=== PATIENT | male | born 1945 | race Caucasian/White ===

== ENCOUNTER 2016-04-05 13:06 | Outpatient (CLI) | payer MEDICARE, OTHER | END 2016-04-05 13:07 | disposition home or self-care (01) | DX: C61 Malignant neoplasm of prostate (principal) ==

== ENCOUNTER 2016-08-10 16:46 | Outpatient (CLI) | payer MEDICARE, OTHER | END 2016-08-10 16:47 | disposition critical access hospital (66) | LOC: EMS 16:46 | PROVIDERS: ATTEND Surgery | DX: R50.9 Fever, unspecified (principal); R41.82 Altered mental status, unspecified; R53.1 Weakness; R06.02 Shortness of breath | CPT/HCPCS: A0425; A0427 ==

== ENCOUNTER 2016-08-10 17:16 | Inpatient (IN) | payer MEDICARE, OTHER ==
[2016-08-10] MEDS ORDERED: SODIUM CHLORIDE 0.9% 1,000 ML IV ONE ×4 (17:27→18:50)
[2016-08-10] MEDS ORDERED: ACETAMINOPHEN 1,000 MG/100 ML 100 ML IV STA (17:28)
--- NOTE | 2016-08-10 17:32 | ED Physician Documentation ---
History of Present Illness - Stated complaint Stated Complaint: FEVER/ALOC - Chief complaint Chief Complaint: General - History obtained from History obtained from: Patient, Family, EMS - History of Present Illness Timing: Yesterday Pain level max: 0 Pain level now: 0 - Additonal information Additional information: Patient is unable to give any history currently due to altered mental status. states that he was diagnosed with prostate cancer last August and has been undergoing chemotherapy since May. Was treated initially with hormone injections. Last chemotherapy was 1 week ago. He has seen at [facility] for his oncology and chemotherapy. Fever started yesterday, temperature of 102 last night. Today became less responsive. EMS was called. EMS started IV fluids en route. No other treatment given. states that the patient normally has a slight red streak from the port. This is unchanged from prior. Review of Systems Unable to obtain: AMS Constitutional: reports: Fever, Chills Cardiac: denies: Chest pain / pressure Respiratory: denies: Cough GI: reports: Vomiting (once). denies: Constipation, Diarrhea : denies: Dysuria Skin: denies: Rash Musculoskeletal: denies: Neck pain, Back pain Neurologic: denies: Headache PD PAST MEDICAL HISTORY - Past Medical History Past Medical History: Yes Other Past Medical History: prostate cancer - Present Medications Home Medications: Ambulatory Orders Medication Instructions Recorded Confirmed Aspirin 81 mg PO DAILY 08/10/16 08/10/16 Bisoprolol Fumarate 0 mg PO DAILY 08/10/16 08/10/16 - Allergies Allergies/Adverse Reactions: Allergies Allergy/AdvReac Type Severity Reaction Status Date / Time Iodinated Contrast Media - Allergy Respiratory Verified 08/10/16 17:30 Oral and iodine Allergy Respiratory Verified 08/10/16 17:30 - Living Situation Living Situation: reports: With family Living Arrangement: reports: At home - Social History Does the pt have substance abuse?: No - Family History Family history: reports: Non contributory PD ED PE NORMAL - Vitals Vital signs reviewed: Yes - General General: Other (pale appearing, moans in response to questions) - HEENT HEENT: PERRL, Other (dry lips and mouth) - Neck Neck: Supple, no meningeal sign - Cardiac Cardiac: Other (tachycardic) - Respiratory Respiratory: Other (rhonchi B) - Abdomen Abdomen: Soft, Non tender, Other (mild distention) - Back Back: No CVA TTP, No spinal TTP - Derm Derm: Warm and dry - Extremities Extremities: Other (1+ B LE edema) - Neuro Neuro: Other (alert) Results - Vitals Vitals: Vital Signs - 24 hr 08/10/16 08/10/16 08/10/16 17:18 18:03 18:45 Temperature 37.8 C H Heart Rate 144 H 139 H 128 H Respiratory 36 H 36 H 24 Rate Blood Pressure 156/82 H 143/71 H 153/69 H O2 Saturation 92 94 98 08/10/16 08/10/16 08/10/16 19:15 20:03 20:51 Temperature 36.9 C 36.7 C Heart Rate 130 H 121 H 120 H Respiratory 26 H 22 29 H Rate Blood Pressure 138/71 H 162/80 H 140/73 H O2 Saturation 98 99 99 Oxygen O2 Source Nasal cannula - Labs Labs: Laboratory Tests 08/10/16 08/10/16 08/10/16 17:20 17:30 17:30 WBC 1.4 L* RBC 3.63 L Hgb 11.4 L Hct 33.2 L MCV 91.4 MCH 31.4 H MCHC 34.4 RDW 13.0 Plt Count 157 MPV 7.8 Neut # 0.6 L Lymph # 0.3 L Cascade # 0.5 Eos # 0.0 Baso # 0.0 Absolute Nucleated RBC 0.02 Nucleated RBCs 1.3 Sodium 130 L Potassium 3.3 L Chloride 95 L Carbon Dioxide 23 Anion Gap 12.0 BUN 33 H Creatinine 1.1 Estimated GFR (MDRD) 66 L Glucose 133 H Lactic Acid 3.1 H* Calcium 8.5 Total Bilirubin 3.5 H AST 160 H ALT 77 H Alkaline Phosphatase 27 L Total Protein 5.8 L Albumin 3.1 L Globulin 2.7 Albumin/Globulin Ratio 1.1 Lipase 16 L Urine Color Urine Clarity Urine pH Ur Specific Paige Urine Protein Urine Glucose (UA) Urine Ketones Urine Occult Blood Urine Nitrite Urine Bilirubin Urine Urobilinogen Ur Leukocyte Esterase Urine RBC Urine WBC Ur Epithelial Cells Ur Squamous Epith Cells Urine Bacteria Urine Casts Urine Mucus Ur Microscopic Review Urine Culture Comments 08/10/16 18:00 WBC RBC Hgb Hct MCV MCH MCHC RDW Plt Count MPV Neut # Lymph # Cascade # Eos # Baso # Absolute Nucleated RBC Nucleated RBCs Sodium Potassium Chloride Carbon Dioxide Anion Gap BUN Creatinine Estimated GFR (MDRD) Glucose Lactic Acid Calcium Total Bilirubin AST ALT Alkaline Phosphatase Total Protein Albumin Globulin Albumin/Globulin Ratio Lipase Urine Color DK. ORANGE Urine Clarity CLOUDY Urine pH 5.5 Ur Specific Paige >=1.030 H Urine Protein 100 H Urine Glucose (UA) NEGATIVE Urine Ketones TRACE Urine Occult Blood LARGE H Urine Nitrite POSITIVE H Urine Bilirubin NEGATIVE Urine Urobilinogen 4 H Ur Leukocyte Esterase NEGATIVE Urine RBC None Seen Urine WBC 4-5 Ur Epithelial Cells RARE Renal Tubular Ur Squamous Epith Cells FEW Squamous Urine Bacteria Many H Urine Casts 0-2 Granular Casts Urine Mucus Marked Strands Ur Microscopic Review INDICATED Urine Culture Comments INDICATED - Rads (name of study) cxr Radiology: Prelim report reviewed, EMP read contemporaneously, See rad report ( Small right lung base infiltrate. ) PD MEDICAL DECISION MAKING - ED course Complexity details: reviewed results, re-evaluated patient, considered differential, d/w patient, d/w family ED course: Patient is a 70-year-old male who presents to the emergency department with what appears to be pneumonia, urosepsis. He is also neutropenic. Given IV fluids aggressively. Also started on vancomycin and Zosyn for broad antibiotic coverage. Blood cultures drawn from the peripheral and from the port. Patient' s mentation greatly improved in the emergency department, answering questions, alert and oriented 3. Heart rate decreased. Blood pressure remained stable. Discussed the case with Dr. Kang, hospitalist who accepts. This document was made in part using voice recognition software. While efforts are made to proofread this document, sound alike and grammatical errors may occur. - Critical Care Time(min): 45 Time Includes: Direct patient care, Document care, Coordinate care, Medical consult Data interpretation: See progress note Procedures included in critical care time: See progress note Procedures excluded from critical care time: See progress note Departure - Departure Disposition: 66 [facility] DC/Xfer Clinical Impression: Pneumonia Qualifiers: Pneumonia type: due to unspecified organism Laterality: right Lung location: lower lobe of lung Qualified Code(s): J18.1 - Lobar pneumonia, unspecified organism Sepsis Qualifiers: Sepsis type: sepsis due to unspecified organism Qualified Code(s): A41.9 - Sepsis, unspecified organism UTI (urinary tract infection) Qualifiers: Urinary tract infection type: acute cystitis Hematuria presence: without hematuria Qualified Code(s): N30.00 - Acute cystitis without hematuria Condition: Stable
[2016-08-10] MEDS ORDERED: ACETAMINOPHEN 1,000 MG/100 ML 100 ML IV ONE (17:33)
[2016-08-10 17:48] LABS: HCT - HEMATOCRIT 33.2 % (42.0-52.0); LYMPHOCYTES # (AUTO) 0.3 10^3/uL (1.5-3.5); MONOCYTES # (AUTO) 0.5 10^3/uL (0.0-1.0); UNCORRECTED WHITE BLOOD COUNT 1.5 x10^3/uL
[2016-08-10 17:56] LABS: BASOPHILS % (AUTO) 0.2 %; EOSINOPHILS % (AUTO) 0.8 %; HGB - HEMOGLOBIN 11.4 g/dL (14.0-18.0); LYMPHOCYTES % (AUTO) 20.1 %; MEAN CORPUSCULAR HEMOGLOBIN 31.4 pg (27.0-31.0); MEAN CORPUSCULAR HGB CONC 34.4 g/dL (32.0-36.0); MEAN CORPUSCULAR VOLUME 91.4 fL (80.0-94.0); MEAN PLATELET VOLUME 7.8 fL (7.4-11.4); MONOCYTES % (AUTO) 35.6 %; NEUTROPHILS % (AUTO) 43.3 %; NUCLEATED RED BLOOD CELLS AUTO 1.3 /100WBC; RED BLOOD COUNT 3.63 10^6/uL (4.70-6.10)
[2016-08-10 17:58] LABS: NEUTROPHILS # (AUTO) 0.6 10^3/uL (1.5-6.6)
[2016-08-10 18:03] LABS: WHITE BLOOD COUNT 1.4 x10^3/uL (4.8-10.8)
[2016-08-10 18:08] LABS: ALBUMIN/GLOBULIN RATIO 1.1 (1.0-2.2); BILIRUBIN,TOTAL 3.5 mg/dL (0.2-1.0); CALCIUM 8.5 mg/dL (8.5-10.3); CREATININE 1.1 mg/dL (0.6-1.2); POTASSIUM 3.3 mmol/L (3.5-5.0); TOTAL PROTEIN 5.8 g/dL (6.7-8.2)
[2016-08-10 18:09] LABS: PH,URINE 5.5 PH (5.0-7.5)
--- NOTE | 2016-08-10 18:12 | XRAY Preliminary Report ---
Exam: XR Chest 1 View IMPRESSION: Small right lung base infiltrate. [facility] SITE ID: [id number]
[2016-08-10 18:20] LABS: BILIRUBIN,URINE NEGATIVE (NEGATIVE); UA w/ MICROSCOPIC CHARGE YES
--- NOTE | 2016-08-10 18:24 | XRAY Report ---
EXAM: CHEST RADIOGRAPHY EXAM DATE: 08/10/2016 05:48 PM. CLINICAL HISTORY: Fever, chemo patient. COMPARISON: 11/22/2015. TECHNIQUE: 1 view. FINDINGS: Lungs/Pleura: Small airspace infiltrate right medial lung base. Borderline low lung volumes. No vascu lar congestion nor pneumothorax. No effusion. Mediastinum: Within exam limitations, cardiomediastinal contour is normal. Other: Interval placement of a right jugular Port-A-Cath with the tip at the cavoatrial junction. Slight calcific tendinitis right shoulder. IMPRESSION: Small right lung base infiltrate. [facility] Referring Provider Line: [phone] SITE ID: [id number]
[2016-08-10 18:29] LABS: UR CULTURE IF IND INDICATED
[2016-08-10] MEDS ORDERED: PIPERACILLIN/TAZOBACTAM 4.5 GM in SODIUM CHLORIDE 0.9% MINIBAG 100 ML IV STA (18:32)
[2016-08-10] MEDS ORDERED: VANCOMYCIN INJ 1 GM in SODIUM CHLORIDE 0.9% 250 ML IV STA (18:32)
[2016-08-10] MEDS ORDERED: VANCOMYCIN 1 GM VIAL ONE (19:02)
[2016-08-10] MEDS ORDERED: MORPHINE 2 MG/ML SYRINGE IVP PRN (21:03)
[2016-08-10] MEDS ORDERED: PROCHLORPERAZINE 10 MG/2 ML VIAL IVP PRN (21:03)
[2016-08-10] MEDS ORDERED: oxyCODONE 5 MG TABLET PO PRN ×2 (21:03)
[2016-08-10] MEDS ORDERED: ACETAMINOPHEN 325 MG TABLET PO PRN (21:03)
[2016-08-10] MEDS ORDERED: SODIUM CHLORIDE 0.9% 500 ML IV SCH (21:03)
[2016-08-10] MEDS ORDERED: VANCOMYCIN PER PHARMACY 1 GM in SODIUM CHLORIDE 0.9% 250 ML IV SCH (22:00)
[2016-08-10] MEDS ORDERED: VANCOMYCIN INJ 500 MG in SODIUM CHLORIDE 0.9% MINIBAG 100 ML IV SCH (23:00)
[2016-08-11] MEDS: SODIUM CHLORIDE 0.9% 1,000 ML IV SCH ×4 (00:14→23:49)
--- NOTE | 2016-08-11 00:18 | HISTORY & PHYSICAL EXAMINATION ---
Chief Complaint - Chief Complaint Chief Complaint: generalized weakness History of Present Illness - Admitted From Admitted From:: emergency department - History Obtained From Records Reviewed: Yes History obtained from: patient and patient's Exam Limitations: Patient was lethargic - History of Present Illness HPI Comment/Other: Patient is a 70-year-old gentleman with a past medical history significant for hypertension, migraines and prostate cancer diagnosed in August of 2015 status post hormone injections, prostatectomy in December with recurrence of disease in May currently undergoing chemotherapy once every 3 weeks and hormone injections his last chemotherapy treatment was on 07-31-16 and today he presents to the emergency department with a chief complaint of generalized weakness. The patient was a poor historian as he was quite lethargic when seen in the emergency department. According to the patient's after each of these chemotherapy treatments the patient usually has 1 week where he is quite fatigued and weak and then begins to recover. She states that this time the weakness and fatigue lasted longer than normal. She states that he actually became increasingly weak to a point where he was not getting out of the bed. The patient has not eaten for 2 days he's had poor appetite. The patient admits that he's been coughing feeling short of breath and was feeling quite warm at home. Today the patient's decided to bring the patient to the emergency department when she noticed that he was not getting out of bed and was having a hard time just rolling over in bed. She states that he was very lethargic and difficult to arouse. The patient also admitted to feeling abdominal distention and abdominal pain. He denied any nausea vomiting or diarrhea. He denied any urinary urgency frequency or dysuria. He denied any chest pain. On presentation to the emergency department the patient was febrile with a temperature of 37.8, tachycardic with heart rate in the 140s, hypertensive, tachypneic, hypoxic on room air and very lethargic. The patient's lab work revealed a neutrophil count of 600 with a lactic acid of 3.1 and elevated liver enzymes but preserved kidney function. The patient appeared to be in severe sepsis further workup was done to find the source. Patient's blood was sent for culture, he did not appear to have any significant erythema or possible around his Port-A-Cath. The patient's chest x-ray showed a small right lung base infiltrate. The patient's UA was positive for many bacteria and 4-5 WBC. The patient was treated with IV fluids broad-spectrum IV antibiotics and Tylenol in the emergency department. He did appear to show some improvement however his repeat lactic acid was slightly increased to 3.4. The patient was admitted to the [facility] for severe sepsis with neutropenic fever. Review of Systems - Constitutional Constitutional: reports: Fatigue, Fever, Chills, Malaise, Weakness, Poor appetite. denies: Diaphoresis, Night sweats, Weight gain, Weight loss - Eyes Eyes: denies: Pain, Irritation, Amaurosis, Blurred vision, Spots in vision, Field loss, Vision loss, Dipolpia, Corrective lenses, Other - Ears, Nose & Throat Ears, Nose & Throat: denies: Ear pain, Hearing loss, Hearing aids, Tinnitus, Vertigo, Nasal pain, Nasal discharge, Nosebleeds, Nasal obstruction, Nasal congestion, Postnasal drainage, Dentures, Sore throat, Hoarseness, Mouth lesions , Bleeding gums, Dental decay, Dental pain, Other - Cardiovascular Cariovascular: reports: Exertional dyspnea, Decr. exercise tolerance. denies: Irregular heart rate, Palpitations, Chest pain, Edema, Syncope, Orthopnea - Respiratory Respiratory: reports: Cough, Sputum production, SOB with exertion. denies: Wheezing, Hemoptysis, Orthopnea, SOB at rest, Stridor, Pleuritic pain - Gastrointestinal Gastrointestinal: reports: Abdominal pain, Abdominal distention, Constipation, Nausea, Vomiting, Coffee grounds emesis, Poor appetite. denies: Diarrhea, Change in bowel habits, Black stools, Bloody stools, Maximus blood emesis - Genitourinary Genitourinary: denies: Dysuria, Frequency, Urgency, Hematuria - Musculoskeletal Musculoskeletal: reports: Muscle aches. denies: Muscle pain, Back pain, Stiffness, Limited range of motion, Muscle weakness, Gout, Joint pain, Joint swelling - Integumentary Integumentary: denies: Rash, Pruritis, Lesions, Dryness - Neurological Neurological: reports: General weakness. denies: Focal weakness, Headache, Dizziness, Numbness, Abnormal gait, Seizures, Slurred speech - Psychiatric Psychiatric: denies: Depression, Anxiety - Endocrine Endocrine: denies: Polyuria, Polydypsia, Polyphagia, Intolerance to cold, Intolerance to heat - Hematologic/Lymphatic Hematologic/Lymphatic: denies: Anemia, Bruising, Petechiae, Lymphadenopathy History - Past Medical History Cardiovascular: reports: Hypertension Neuro: reports: Headache/migraine GI: reports: Hemorrhoids : reports: Other (Prostate Cancer) MRSA Hx?: No Other Past Medical History: prostate cancer - Family & Social History Family History: Mother: Cancer (Mom - Breast Ca, Dad - Bladder Ca, Brother - Multiple Myeloma, Uncle - Colon Ca), Father: Cancer, Brother: Cancer, Other family: Cancer Living arrangement: At home Living Situation: With spouse/s.o. Social History Notes: Patient and his live in [facility]. They are originally from [facility]. They have one daughter who lives on [place]. They have been living here for 15 years. 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 - Substance History Use: Uses substance without health or social issues: Alcohol (Has not drank alcohol since starting chemotherapy, previously drank a glass of wine a few times a week.) Abuse: Recurrent use of substance despite neg consequences: NONE Dependence: Experiences withdrawal or developed tolerances: NONE - POLST Patient has POLST: No POLST Status: Full Code Meds/Allgy - Home Medications Home Medications: Ambulatory Orders Medication Instructions Recorded Confirmed Aspirin 81 mg PO DAILY 08/10/16 08/10/16 Bisoprolol Fumarate 0 mg PO DAILY 08/10/16 08/10/16 - Allergies Allergies/Adverse Reactions: Allergies Allergy/AdvReac Type Severity Reaction Status Date / Time Iodinated Contrast Media - Allergy Respiratory Verified 08/10/16 17:30 Oral and iodine Allergy Respiratory Verified 08/10/16 17:30 Exam - Vital Signs Reviewed Vital Signs: Yes Vital Signs: Vital Signs x48h Temp Pulse Resp BP Pulse Ox 08/10/16 21:47 36.9 C 115 H 30 H 116/54 L 98 - Physical Exam General Appearance: positive: Severe distress (Tachypnic, alert but very slow to speak and appears toxic looking, pale.) Eyes Bilateral: positive: Normal inspection, PERRL, EOMI, No lid inflammation, Conjunctivae nml, No scleral icterus ENT: positive: ENT inspection nml, Pharynx nml, Dry mucous membranes. negative : Purulent nasal drainage, Pharyngeal erythema, Oral lesions Neck: positive: Nml inspection, Thyroid nml, No JVD, Trachea midline. negative : Thyromegaly, Lymphadenopathy (R), Lymphadenopathy (L) Respiratory: positive: Chest non-tender, Rhonchi (Right base with coarse breath sounds bilaterally), Other (Very tachypnic appears to be in respiratory distress ) Cardiovascular: positive: No murmur, No gallop, Tachycardia Peripheral Pulses: positive: 2+ Abdomen: positive: Tenderness (diffuse tenderness, negative murphys sign), Other (Distended abdomen, soft). negative: Guarding, Rebound, Hepatomegaly Back: positive: Nml inspection. negative: CVA tenderness (R), CVA tenderness (L ) Skin: positive: No rash, Warm, Dry, Pallor. negative: Cyanosis, Diaphoresis, Skin rash Extremities: positive: Non-tender, Full ROM, Nml appearance, No pedal edema Neurologic/Psychiatric: positive: CN's nml (2-12), Motor nml, Sensation nml, Other (Generalized weakness, alert but very slow to answer and confused at times ) Conclusion/Plan - Problem List (1) Severe sepsis Conclusion/Plan: Patient presented with fever 37.8C, tachycardia 144, tachypnea 36, hypoxic down to the low 90s on room air, with leukopenia WBC 1.4, elevated lactic acid 3.1 and elevated LFTs. Patient was toxic appearing on presentation and very lethargic. Patient presented with sepsis and end organ damage. Source of sepsis could be pneumonia this patient had respiratory distress was hypoxic on presentation with coughing and shortness of breath and a chest x-ray showed right base infiltrate. Source could also be urine as the patient did have positive nitrates with pyuria and bacteria in the urine. Source could also be intra-abdominal as the patient did have elevated LFTs and does have abdominal distention with tenderness and vomiting but no peritoneal signs. Source unlikely to be the port as it appears to be clean with no surrounding erythema or pus. Plan: Continue IV fluids with aggressive resuscitation Broad-spectrum antibiotics: IV vancomycin and IV Zosyn Blood cultures x2 Trend lactic acid Abdominal ultrasound Tylenol for fever Monitor kidney and liver function hide paster mentation (2) Neutropenic fever Conclusion/Plan: Patient presented with a fever of 37.9. He had a fever of 103 in route. The patient was neutropenic with a neutrophil count of 600. Patient had chemotherapy on 07-31-16 Likely source pneumonia and UTI Plan: Monitor CBC Monitor temperature Treat with broad-spectrum antibiotics: IV vancomycin and IV Zosyn IV fluids Neutropenic precautions Blood cultures x2 (3) HCAP (healthcare-associated pneumonia) Conclusion/Plan: Patient presented with severe sepsis and appeared to be in respiratory distress , with hypoxia, tachypnea and febrile Patient currently undergoing chemotherapy for bladder cancer Chest x-ray shows a right base infiltrate. Will treat for healthcare associated pneumonia given recent chemotherapy. Plan: Broad-spectrum antibiotics: IV vancomycin and IV Zosyn Supplemental oxygen Nebs as needed Blood cultures times 2 Monitor closely (4) UTI (urinary tract infection) Conclusion/Plan: patient presented with severe sepsis Urine concerning for UTI with positive nitrite Pyuria and bacteriuria No urinary symptoms the patient septic with lethargy Will treat with IV Vanco and Zosyn Follow up urine cultures Monitor Qualifiers: Urinary tract infection type: acute cystitis Hematuria presence: without hematuria Qualified Code(s): N30.00 - Acute cystitis without hematuria (5) Hypokalemia Conclusion/Plan: Patient presented with hypokalemia K 3.3 Likely secondary to nausea and vomiting Replace potassium (6) Elevated LFTs Conclusion/Plan: Patient presented with elevated LFTs bili of 3.5 AST 160 ALT 77 This could be secondary to severe sepsis with endorgan damage It could also be secondary to chemotherapy Given abdominal distention nausea vomiting and abdominal tenderness patient could also have cholecystitis as cause of severe sepsis however patient already has a source Repeat LFTs in the morning Abdominal ultrasound Consider abdominal CT scan if abdominal pain and distention persists. (7) Bladder cancer Conclusion/Plan: treated outpatient at [facility] Patient's oncologist is Dr. Knapp Initially underwent hormone therapy and then had a prostatectomy in December 2015 PSA increased therefore started chemotherapy in May 2016 Currently undergoing chemotherapy every 3 weeks most recently 07-31-16 Also with adjuvant hormone injections every 3 months (8) Prophylactic use of low molecular weight heparin for venous thromboembolism Conclusion/Plan: placed on Lovenox while hospitalized - Lab Results Lab results reviewed: Yes Fish Bones: 08/10/16 17:30 08/10/16 17:30 - Diagnostic Imaging Results Diagnostic Imaging Results: positive: Final report reviewed - EKG Results EKG Interpreted Independently: Yes - Other Other Results/Comments: Chest x-ray Impression: Small right lung base infiltrate. Issues/Core Measures - Anticipated LOS Anticipated Stay Length: 2 or more midnights - DVT/VTE - Prophylaxis VTE/DVT Prophylaxis med ordered at admit?: Yes
[2016-08-11] MEDS: SODIUM CHLORIDE FLUSH 0.9% 10 ML SYRINGE IVP SCH ×4 (00:32→14:17)
[2016-08-11] MEDS: PIPERACILLIN/TAZOBACTAM 3.375 GM in SODIUM CHLORIDE 0.9% MINIBAG 100 ML IV SCH ×5 (00:33→23:51)
[2016-08-11] MEDS: POTASSIUM CHLOR 10 MEQ/100 ML 100 ML IV SCH ×2 (03:04→04:01)
[2016-08-11] MEDS: ONDANSETRON 4 MG/2 ML VIAL IVP PRN ×2 (06:28→17:11)
[2016-08-11 06:41] LABS: BASOPHILS % (AUTO) 0.3 %; HCT - HEMATOCRIT 29.3 % (42.0-52.0); HGB - HEMOGLOBIN 10.2 g/dL (14.0-18.0); LYMPHOCYTES % (AUTO) 10.9 %; MEAN CORPUSCULAR HEMOGLOBIN 31.6 pg (27.0-31.0); MEAN CORPUSCULAR HGB CONC 34.6 g/dL (32.0-36.0); MEAN CORPUSCULAR VOLUME 91.3 fL (80.0-94.0); MONOCYTES % (AUTO) 11.5 %; NEUTROPHILS % (AUTO) 77.3 %; RED BLOOD COUNT 3.22 10^6/uL (4.70-6.10); RED CELL DISTRIBUTION WIDTH 13.5 % (12.0-15.0); UNCORRECTED WHITE BLOOD COUNT 3.4 x10^3/uL; WHITE BLOOD COUNT 3.4 x10^3/uL (4.8-10.8)
[2016-08-11 06:49] LABS: BILIRUBIN,TOTAL 3.1 mg/dL (0.2-1.0); BUN - BLOOD UREA NITROGEN 29 mg/dL (6-20); CALCIUM 7.9 mg/dL (8.5-10.3); CARBON DIOXIDE - CO2 21 mmol/L (21-32); CHLORIDE 103 mmol/L (101-111); GFR - MDRD 74 (>89); GLUCOSE 102 mg/dL (70-100); MAGNESIUM 1.4 mg/dL (1.7-2.8); PHOSPHORUS 1.7 mg/dL (2.5-4.6); POTASSIUM 3.6 mmol/L (3.5-5.0); SODIUM 133 mmol/L (135-145); TOTAL PROTEIN 5.1 g/dL (6.7-8.2)
[2016-08-11] MEDS ORDERED: SODIUM CHLORIDE 0.9% 500 ML IV ONE ×3 (06:50→16:21)
[2016-08-11] MEDS ORDERED: PANTOPRAZOLE 40 MG TABLET PO SCH (07:00)
[2016-08-11 07:01] LABS: VBG PH 7.413 (7.31-7.41)
[2016-08-11 07:02] LABS: CALCIUM, IONIZED 1.11 mmol/L (1.15-1.33)
[2016-08-11] MEDS: PANTOPRAZOLE 40 MG VIAL IVP SCH (07:07)
[2016-08-11 07:18] LABS: BAND NEUTROPHILS % (MANUAL) 31 %; LYMPHOCYTES % (MANUAL) 19 %; NEUTROPHILS % (MANUAL) 15 %; TOTAL CELLS COUNTED 100
[2016-08-11 07:20] LABS: PLATELET ESTIMATE, MANUAL DECREASED (<130,000) (NORMAL); PLATELET MORPHOLOGY NORMAL APPEARANCE (NORMAL); WBC MORPHOLOGY (MULTIPLE) 1+ VACUOLATION (NORMAL)
[2016-08-11 07:21] LABS: NP AUTO DIFFERENTIAL? YES; NP MAN DIFFERENTIAL? NO
[2016-08-11] MEDS: POLYETHYLENE GLYCOL 3350 17 GM PACKET PO SCH (08:43)
[2016-08-11] MEDS: SACCHAROMYCES BOULARDII 250 MG CAPSULE PO SCH ×2 (08:43→17:13)
[2016-08-11] MEDS: ASPIRIN CHEW 81 MG TABLET PO SCH (08:43)
[2016-08-11] MEDS: ENOXAPARIN 40 MG/0.4 ML SYRINGE SUBQ SCH (08:43)
[2016-08-11] MEDS: VANCOMYCIN INJ 1 GM in SODIUM CHLORIDE 0.9% 250 ML IV SCH ×2 (08:44→20:55)
--- NOTE | 2016-08-11 08:50 | Ultrasound Preliminary Report ---
Exam: US Abdomen Limited IMPRESSION: 1. Technically difficult examination due to patient position and physical restrictions of motion. 2. Mild hepatomegaly. Portions of left lobe of liver suboptimally visualized. 3. Nonspecific mild prominence of common bile duct measuring up to 9 mm diameter. No intrahepatic rodrick t dilation. No intraductal stones seen. [facility] SITE ID: [id number]
--- NOTE | 2016-08-11 08:53 | Ultrasound Report ---
EXAM: ABDOMEN ULTRASOUND LIMITED, RUQ EXAM DATE: 08/11/2016 08:20 AM. CLINICAL HISTORY: Elevated LFTs with severe sepsis. COMPARISON: CT 02/16/2013. TECHNIQUE: Real-time scanning was performed with static images obtained. FINDINGS: Liver: Mildly enlarged with right lobe 17.8 cm superior to inferior. Portions of left lobe of liver s uboptimally visualized due to overlying bowel gas and patient position. No focal mass. Main portal ve in flow: Hepatopetal. Gallbladder: Normal. No stones, wall thickening, or sonographic Craig's sign. Biliary System: CBD measures 9 mm. No intrahepatic or additional extrahepatic ductal dilatation. Other: Incidental right pleural effusion. Right kidney unremarkable measuring 12.2 cm longitudinally. IMPRESSION: 1. Technically difficult examination due to patient position and physical restrictions of motion. 2. Mild hepatomegaly. Portions of left lobe of liver suboptimally visualized. 3. Nonspecific mild prominence of common bile duct measuring up to 9 mm diameter. No intrahepatic rodrick t dilation. No intraductal stones seen. [facility] Referring Provider Line: [phone] SITE ID: [id number]
[2016-08-11] MEDS ORDERED: METOPROLOL TARTRATE 50 MG TABLET PO SCH (09:00)
[2016-08-11] MEDS ORDERED: BISOPROLOL FUMARATE 10 MG PO SCH (09:00)
[2016-08-11] MEDS ORDERED: MAGNESIUM SULFATE 1 GM in SODIUM CHLORIDE 0.9% 50 ML IV ONE (10:33)
[2016-08-11] MEDS ORDERED: POTASSIUM PHOSPHATE 15 MMOL in SODIUM CHLORIDE 0.9% 250 ML IV ONE (11:30)
[2016-08-11 11:54] LABS: INR 1.5 (0.8-1.2); PT - PROTHROMBIN TIME 17.1 secs (9.9-12.6)
[2016-08-11 12:14] LABS: PARTIAL THROMBOPLASTIN TIME 36.7 secs (24.9-33.3)
[2016-08-11] MEDS ORDERED: diphenhydrAMINE INJ 50 MG/ML VIAL IVP PRN (13:36)
--- NOTE | 2016-08-11 13:50 | PROVIDER PROGRESS NOTE ---
Subjective - Prog Note Date Prog Note Date: 08/11/16 Prog Note Time: 13:47 - Subjective Subjective: Greater than 45 minutes is spent in critical care for this patient. I am now transferring him to the ICU. He has presented with sepsis and the source could be pneumonia or urine. Abdomen is distended and urine is tea colored. LFTs are elevated but ultrasound is negative other than a mildly dilated common bile duct. A new piece of data is gram-positive cocci growing in blood cultures at less than 12 hours. The patient continues to be lethargic, disoriented, tachycardic in spite of Zosyn, vancomycin, IV fluids and fluid boluses in the last hour. He is now developing hypotension. I have spoken to the oncologist integration engineer for Dr. Knapp @ [facility] [phone] and he is in agreement with my management. I have already spoken to Dr. Hawk as well as Dr. Bolanos for removal of port and new central line. Current Medications - Current Medications Current Medications: Active Medications Acetaminophen (Tylenol) 650 mg PO Q4HR PRN PRN Reason: Pain 1 to 4 Aspirin ([place] Aspirin) 81 mg PO DAILY [facility] Last Admin: 08/11/16 08:43 Dose: Not Given Diphenhydramine HCl (Benadryl Inj) 25 mg IVP Q6H PRN PRN Reason: Allergy Symptoms Enoxaparin Sodium (Lovenox) 40 mg SUBQ DAILY [facility] Last Admin: 08/11/16 08:43 Dose: 40 mg Heparin Sodium (Beef Lung) () 30 - 50 unit IVP ONCE PRN PRN Reason: Port Protocol (<24 hours) Stop: 09/10/16 06:32 Sodium Chloride (Normal Saline 0.9%) 1,000 mls @ 150 mls/hr IV .Q6H40M [facility] Last Admin: 08/11/16 03:37 Dose: 150 mls/hr Piperacillin Sod/Tazobactam (Sod 3.375 gm/ Sodium Chloride) 100 mls @ 200 mls/ hr IV Q6HR [facility] Last Admin: 08/11/16 12:29 Dose: 200 mls/hr Vancomycin HCl 1 gm/ Sodium (Chloride) 250 mls @ 166.667 mls/hr IV BID [facility] Last Admin: 08/11/16 08:44 Dose: 166.667 mls/hr Potassium Phosphate 15 mmol/ (Sodium Chloride) 255 mls @ 42.5 mls/hr IV ONCE ONE Stop: 08/11/16 17:29 Last Admin: 08/11/16 10:57 Dose: 42.5 mls/hr Ranitidine HCl 50 mg/ Sodium (Chloride) 52 mls @ 500 mls/hr IV BID [facility] Methylprednisolone (Solu-Medrol (40mg Vial)) 40 mg IVP TID [facility] Metoprolol Tartrate (Lopressor) 50 mg PO BID [facility] Last Admin: 08/11/16 08:43 Dose: 50 mg Morphine Sulfate (Morphine) 2 mg IVP Q2HR PRN PRN Reason: Pain 8 to 10 Last Admin: 08/11/16 02:50 Dose: 2 mg Ondansetron HCl (Zofran Inj) 4 mg IVP Q6HR PRN PRN Reason: Nausea / Vomiting Last Admin: 08/11/16 06:28 Dose: 4 mg Oxycodone HCl (Roxicodone) 5 mg PO Q4HR PRN PRN Reason: Pain 5 to 7 Oxycodone HCl (Roxicodone) 10 mg PO Q4HR PRN PRN Reason: Pain 8 to 10 Pantoprazole Sodium (Protonix) 40 mg IVP QDAC [facility] Last Admin: 08/11/16 07:07 Dose: 40 mg Polyethylene Glycol (Miralax) 17 gm PO DAILY [facility] Last Admin: 08/11/16 08:43 Dose: Not Given Prochlorperazine Edisylate (Compazine Inj) 10 mg IVP Q6HR PRN PRN Reason: Nausea / Vomiting Saccharomyces Boulardii (Florastor) 250 mg PO BIDWM [facility] Last Admin: 08/11/16 08:43 Dose: 250 mg Sodium Chloride (Normal Saline Flush 0.9%) 10 ml IVP PRN PRN PRN Reason: NEEDED PER PROVIDER ORDERS Sodium Chloride (Normal Saline Flush 0.9%) 10 ml IVP Q8HR [facility] Last Admin: 08/11/16 11:05 Dose: 10 ml Aspirin 81 mg PO DAILY 08/10/16 Bisoprolol Fumarate/Hctz [Bisoprolol-Hctz 10-6.25 mg Tab] 1 each PO DAILY Objective - Vital Signs/Intake & Output Reviewed Vital Signs: Yes Vital Signs: Vital Signs x48h Temp Pulse Resp BP BP Pulse Ox 08/11/16 12:00 36.8 C 105 H 28 H 94/58 L 97 08/11/16 10:23 36.6 C 105 H 35 H 91/61 97 08/11/16 08:43 112/71 08/11/16 08:36 36.9 C 124 H 36 H 113/72 95 08/11/16 06:19 37.2 C 127 H 36 H 117/75 96 Intake & Output: Intake & Output 08/08/16 08/09/16 08/10/16 08/11/16 23:59 23:59 23:59 23:59 Intake Total 4058 Output Total 325 472 Balance -325 2956 - Objective General Appearance: positive: Mild distress, Lethargic, Other (eldelry white male, glazed eyes, mumbling speech, in room holding martinez, very alarmed.) Eyes Bilateral: positive: PERRL (but sluggish), EOMI Eyes: OU Scleral icterus ENT: positive: Dry mucous membranes Neck: positive: No JVD, Lymphadenopathy (R), Lymphadenopathy (L). negative: Stiff neck, Carotid bruit Respiratory: positive: Chest non-tender, No respiratory distress, Rales, Rhonchi Cardiovascular: positive: Tachycardia (has been constant since I have come on shift), Systolic murmur. negative: Gallop/S4 Abdomen: positive: Tenderness (mild and very minimal over suprapubic are), Abnml bowel sounds (hypoactive), Other (distended but not really tender until lower abd, specifically no epigastric RUQ pain). negative: Guarding, Rebound Skin: positive: Pallor, Other (cold to touch scalp, elbows, knees but no cyanosis). negative: Skin rash Extremities: positive: Non-tender, No pedal edema. negative: Drea's sign/cords Neurologic/Psychiatric: positive: Motor nml, Disoriented to person, Disoriented to place, Disoriented to time, Slurred/abnml speech - Lab Results Fish Bones: 08/12/16 04:35 08/12/16 04:35 Other Labs: Lab Results x24hrs 08/11/16 08/11/16 08/11/16 Range/Units 11:40 06:15 06:15 WBC (4.8-10.8) x10^3/uL RBC (4.70-6.10) 10^6/uL Hgb (14.0-18.0) g/dL Hct (42.0-52.0) % MCV (80.0-94.0) fL MCH (27.0-31.0) pg MCHC (32.0-36.0) g/dL RDW (12.0-15.0) % Plt Count (130-450) 10^3/uL MPV (7.4-11.4) fL Neut # Lymph # [place] # Eos # Baso # Absolute Nucleated RBC Total Counted Band Neuts % (Manual) (0 - 10) % Reactive Lymphs % (Man) % Metamyelocytes % ( - 0) % Neutrophils # (Manual) (1.5-6.6) 10^3/uL Lymphocytes # (Manual) (1.5-3.5) 10^3/uL Monocytes # (Manual) (0.0-1.0) 10^3/uL Nucleated RBCs Differential Comment WBC Morphology (NORMAL) Platelet Estimate (NORMAL) Platelet Morphology (NORMAL) RBC Morph Micro Appear (NORMAL) PT 17.1 H (9.9-12.6) secs INR 1.5 H (0.8-1.2) APTT 36.7 H (24.9-33.3) secs VBG pH 7.413 H (7.31-7.41) Ionized Calcium 1.11 L (1.15-1.33) mmol/L Sodium (135-145) mmol/L Potassium (3.5-5.0) mmol/L Chloride (101-111) mmol/L Carbon Dioxide (21-32) mmol/L Anion Gap (6-13) BUN (6-20) mg/dL Creatinine (0.6-1.2) mg/dL Estimated GFR (MDRD) (>89) Glucose (70-100) mg/dL Lactic Acid 2.6 H (0.5-2.2) mmol/L Calcium (8.5-10.3) mg/dL Phosphorus (2.5-4.6) mg/dL Magnesium (1.7-2.8) mg/dL Total Bilirubin (0.2-1.0) mg/dL AST (10-42) IU/L ALT (10-60) IU/L Alkaline Phosphatase (42-121) IU/L Total Protein (6.7-8.2) g/dL Albumin (3.2-5.5) g/dL Globulin (2.1-4.2) g/dL Albumin/Globulin Ratio (1.0-2.2) 08/11/16 08/11/16 08/11/16 Range/Units 06:15 06:15 01:10 WBC 3.4 L (4.8-10.8) x10^3/uL RBC 3.22 L (4.70-6.10) 10^6/uL Hgb 10.2 L (14.0-18.0) g/dL Hct 29.3 L (42.0-52.0) % MCV 91.3 (80.0-94.0) fL MCH 31.6 H (27.0-31.0) pg MCHC 34.6 (32.0-36.0) g/dL RDW 13.5 (12.0-15.0) % Plt Count 139 (130-450) 10^3/uL MPV 8.0 (7.4-11.4) fL Neut # Not Reportable Lymph # Not Reportable [place] # Not Reportable Eos # Not Reportable Baso # Not Reportable Absolute Nucleated RBC Not Reportable Total Counted 100 Band Neuts % (Manual) 31 H (0 - 10) % Reactive Lymphs % (Man) 11 % Metamyelocytes % 15 H ( - 0) % Neutrophils # (Manual) 1.6 (1.5-6.6) 10^3/uL Lymphocytes # (Manual) 1.0 L (1.5-3.5) 10^3/uL Monocytes # (Manual) 0.3 (0.0-1.0) 10^3/uL Nucleated RBCs Not Reportable Differential Comment MANUAL DIFFERENTIAL WBC Morphology 1+ VACUOLATION (NORMAL) Platelet Estimate DECREASED (<130,000) (NORMAL) Platelet Morphology NORMAL APPEARANCE (NORMAL) RBC Morph Micro Appear 1+ SCHISTOCYTES (NORMAL) PT (9.9-12.6) secs INR (0.8-1.2) APTT (24.9-33.3) secs VBG pH (7.31-7.41) Ionized Calcium YES (1.15-1.33) mmol/L Sodium 133 L (135-145) mmol/L Potassium 3.6 (3.5-5.0) mmol/L Chloride 103 (101-111) mmol/L Carbon Dioxide 21 (21-32) mmol/L Anion Gap 9.0 (6-13) BUN 29 H (6-20) mg/dL Creatinine 1.0 (0.6-1.2) mg/dL Estimated GFR (MDRD) 74 L (>89) Glucose 102 H (70-100) mg/dL Lactic Acid 2.8 H (0.5-2.2) mmol/L Calcium 7.9 L (8.5-10.3) mg/dL Phosphorus 1.7 L (2.5-4.6) mg/dL Magnesium 1.4 L (1.7-2.8) mg/dL Total Bilirubin 3.1 H (0.2-1.0) mg/dL AST 162 H (10-42) IU/L ALT 68 H (10-60) IU/L Alkaline Phosphatase 20 L (42-121) IU/L Total Protein 5.1 L (6.7-8.2) g/dL Albumin 2.5 L (3.2-5.5) g/dL Globulin 2.6 (2.1-4.2) g/dL Albumin/Globulin Ratio 1.0 (1.0-2.2) 08/10/16 Range/Units 21:22 WBC (4.8-10.8) x10^3/uL RBC (4.70-6.10) 10^6/uL Hgb (14.0-18.0) g/dL Hct (42.0-52.0) % MCV (80.0-94.0) fL MCH (27.0-31.0) pg MCHC (32.0-36.0) g/dL RDW (12.0-15.0) % Plt Count (130-450) 10^3/uL MPV (7.4-11.4) fL Neut # Lymph # [place] # Eos # Baso # Absolute Nucleated RBC Total Counted Band Neuts % (Manual) (0 - 10) % Reactive Lymphs % (Man) % Metamyelocytes % ( - 0) % Neutrophils # (Manual) (1.5-6.6) 10^3/uL Lymphocytes # (Manual) (1.5-3.5) 10^3/uL Monocytes # (Manual) (0.0-1.0) 10^3/uL Nucleated RBCs Differential Comment WBC Morphology (NORMAL) Platelet Estimate (NORMAL) Platelet Morphology (NORMAL) RBC Morph Micro Appear (NORMAL) PT (9.9-12.6) secs INR (0.8-1.2) APTT (24.9-33.3) secs VBG pH (7.31-7.41) Ionized Calcium (1.15-1.33) mmol/L Sodium (135-145) mmol/L Potassium (3.5-5.0) mmol/L Chloride (101-111) mmol/L Carbon Dioxide (21-32) mmol/L Anion Gap (6-13) BUN (6-20) mg/dL Creatinine (0.6-1.2) mg/dL Estimated GFR (MDRD) (>89) Glucose (70-100) mg/dL Lactic Acid 3.4 H* (0.5-2.2) mmol/L Calcium (8.5-10.3) mg/dL Phosphorus (2.5-4.6) mg/dL Magnesium (1.7-2.8) mg/dL Total Bilirubin (0.2-1.0) mg/dL AST (10-42) IU/L ALT (10-60) IU/L Alkaline Phosphatase (42-121) IU/L Total Protein (6.7-8.2) g/dL Albumin (3.2-5.5) g/dL Globulin (2.1-4.2) g/dL Albumin/Globulin Ratio (1.0-2.2) Assessment/Plan - Problem List (1) Severe sepsis with acute organ dysfunction due to Gram positive bacteria Impression: Patient presented with fever 37.8C, tachycardia 144, tachypnea 36, hypoxic down to the low 90s on room air, with leukopenia WBC 1.4, elevated lactic acid 3.1 and elevated LFTs. He has sepsis with end organ damage. Patient was toxic appearing on presentation and very lethargic and has not really improved in spite of treatment delineated below. Sources of sepsis reviewed: pneumonia this patient had respiratory distress was hypoxic on presentation with coughing and shortness of breath and a chest x-ray showed right base infiltrate. Source could also be urine as the patient did have positive nitrates with pyuria and bacteria in the urine. Source could also be intra-abdominal as the patient did have elevated LFTs and does have abdominal distention with tenderness and vomiting but no peritoneal signs. US of abdomen is neg other than 9 mm CBD dilation. Source was unlikely to be the port as it appears to be clean with no surrounding erythema BUT now with positive gram positive bacteria in blood in an immunocompromised patient with a port and s/p chemo Plan: Transfer to ICU Start levophed after central line placed and Dr. Moctezuma consulted for central line. Continue IV fluids with aggressive resuscitation Broad-spectrum antibiotics: IV vancomycin and IV Zosyn Day #2 today Blood cultures x2 done and positive Trend lactic acid CT of abdomen/pelvis Tylenol for fever Monitor kidney and liver function Monitor mentation (2) Neutropenic fever Conclusion/Plan: Patient presented with a fever of 37.9. He had a fever of 103 in route. The patient was neutropenic with a neutrophil count of 600. Patient had chemotherapy on 07-31-16 Likely source pneumonia and UTI and port. Plan: Monitor CBC Monitor temperature Treat with broad-spectrum antibiotics: IV vancomycin and IV Zosyn Day #2 today IV fluids Neutropenic precautions remove the Port a cath and Dr. Hawk has been consulted. (3) HCAP (healthcare-associated pneumonia) Conclusion/Plan: Patient presented with severe sepsis and appeared to be in respiratory distress , with hypoxia, tachypnea and febrile Patient currently undergoing chemotherapy for prostate cancer Chest x-ray shows a right base infiltrate. Will treat for healthcare associated pneumonia given recent chemotherapy. Plan: Broad-spectrum antibiotics: IV vancomycin and IV Zosyn Day #2 today Supplemental oxygen Nebs as needed Sputum if can be brought up Monitor closely (4) UTI (urinary tract infection) Conclusion/Plan: patient presented with severe sepsis Urine concerning for UTI with positive nitrite Pyuria and bacteriuria No urinary symptoms the patient septic with lethargy Will treat with IV Vanco and Zosyn, Day #2 Follow up urine cultures Monitor Qualifiers: Urinary tract infection type: acute cystitis Hematuria presence: without hematuria Qualified Code(s): N30.00 - Acute cystitis without hematuria (5) Hypokalemia Conclusion/Plan: Patient presented with hypokalemia K 3.3 last night Likely secondary to nausea and vomiting Replaced potassium and 3.6 today (6) Elevated LFTs Conclusion/Plan: Patient presented with elevated LFTs bili of 3.5 AST 160 ALT 77 This could be secondary to severe sepsis with end organ damage It could also be secondary to chemotherapy Given abdominal distention nausea vomiting and abdominal tenderness patient could also have cholecystitis as cause of severe sepsis however patient already has a source and abd US negative. Since distension persists in an immunocompromised male, abdominal/pelvis CT scan. says he gets hives with contrast so is being given solumedrol, benadry, zantac for premedication and CT is tonight around 8 pm (7) Prostate cancer Conclusion/Plan: treated outpatient at [facility] Patient's oncologist is Dr. Knapp. Case reviewed with the Oncologist integration engineer for Dr. Knapp. Initially underwent hormone therapy and then had a prostatectomy in December 2015 PSA increased therefore started chemotherapy in May 2016 Currently undergoing chemotherapy every 3 weeks most recently 07-31-16 Also with adjuvant hormone injections every 3 months He agrees with pullii port and doesn't feel patient needs transfer at this time since their treatment would be no different than current plan. To call him back if necessary. .
[2016-08-11] MEDS ORDERED: VANCOMYCIN INJ 1.5 GM in SODIUM CHLORIDE 0.9% 500 ML IV SCH (14:00)
[2016-08-11] MEDS ORDERED: LIDOCAINE-MPF 1% 5 ML VIAL ONE (14:09)
[2016-08-11] MEDS: raNITIdine INJ 50 MG in SODIUM CHLORIDE 0.9% 50 ML IV SCH ×2 (14:10→20:51)
[2016-08-11] MEDS: methylPREDNISolone SUCCINATE 40 MG/ML VIAL IVP SCH ×2 (14:15→22:31)
[2016-08-11] MEDS ORDERED: LIDOCAINE MPF 1%-EPI 1:200000 30 ML VIAL ONE ×2 (14:37→14:38)
--- NOTE | 2016-08-11 15:18 | OPERATIVE REPORT ---
Operative Report - General Admit Date: 08/10/16 Procedure Date: 08/11/16 Planned Procedure: BedSide Infected Chemoport removal Pre-Op Diagnosis: sepsis Post Op Diagnosis: same - Procedure Note Primary Surgeon: Kenn Anesthesia Technique: Local Pathology: Chemoport Estimated Blood Loss (in cc): 3 Complications: None - Other Other Information/Narrative: INDICATION: 70 yo male with Sepsis and Rapid growth and Identification of staph Aureus from Chemoport. Urgent Bedside removal discussed with patient and family and riskis of procedure including risk of bleeding perforation, pneumothorax, hematoma formtion, Pulmonary Embolism, skin abscess formation, skin irregularities and risk of . All questions answered. Patient's signed consent after the patient requested that she write for him. Procedure: The patient was prepped and draped in sterile fashion. A time out was performed identifying correct patient, site, location. Patient has been on perioperative antibiotics. 1% lidocaine with epi was injected to the previous healed surgical site. A #15 blade was used for skin incision. the pocket was bluntly dissected and the chemoport was located. The tubing was removed from the patient in total, and the tip was sent for culture. Pressure was maintained while remvoing the line and afterward to prevent embolism as well as creating hemostasis. 3-O vicryl was used to ensure closure of the previous tract at the pocket site. The pocket was irrigated with 50 mL of sterile saline. Hand held cautery was used for hemostasis. the pocket was again irrigated and then subcutaneous 3-O vicryl was used to close the space in the previous pocket, followed by 4-O monocryl for subcuticular skin closure. The skin was then washed and Dermabond applied followed by guaze and tegaderm after the dermabond was dry. The patient tolerated the procedure well. All counts were correct. A chest CXR is pending.
--- NOTE | 2016-08-11 16:12 | XRAY Preliminary Report ---
Exam: XR Chest 1 View IMPRESSION: Interval removal of right-sided port. If this examination was intended to exclude pneumot horax, recommend repeat image including the apices. [facility] SITE ID: [id number]
--- NOTE | 2016-08-11 16:15 | XRAY Report ---
EXAM: CHEST RADIOGRAPHY EXAM DATE: 08/11/2016 03:42 PM. CLINICAL HISTORY: Post removal of port COMPARISON: 08/10/2016. TECHNIQUE: 1 view. FINDINGS: Lungs/Pleura: The superiormost portions of the apices are excluded from view, limiting evaluation for pneumothorax. No moderate or large pneumothorax is seen. No focal opacities are evident. No pleural effusion. Mediastinum: Normal cardiomediastinal contour. Atherosclerotic calcifications within the aortic arch, as before. Other: Thoracic spine DISH. Interval removal of right-sided port. IMPRESSION: Interval removal of right-sided port. If this examination was intended to exclude pneumot horax, recommend repeat image including the apices. [facility] Referring Provider Line: [phone] SITE ID: [id number]
--- NOTE | 2016-08-11 16:15 | ED Physician Documentation ---
ED Addendum - Addendum Addendum: 08/11/16 16:14 Called to ICU by Dr Martin, needing central venous access Procedure note, central line: Verbal informed consent was obtained from at bedside, risks including bleeding, infection, pneumothorax, arterial puncture, need for further surgery were discussed with the patient. She was prepped twice with chloraprep. I wore, mask, gown, sterile gloves. Full sterile sheet was utilized. Using real-time ultrasound guidance the right internal jugular was accessed and using Seldinger technique a triple-lumen 7 [place]onese central line was placed in standard fashion without immediate complications.
--- NOTE | 2016-08-11 16:57 | XRAY Preliminary Report ---
Exam: XR Chest for Line Placement IMPRESSION: Right IJ line to the low SVC, otherwise no change. No pneumothorax identified. [facility] SITE ID: [id number]
--- NOTE | 2016-08-11 17:00 | XRAY Report ---
EXAM: CHEST RADIOGRAPHY EXAM DATE: 08/11/2016 04:12 PM. CLINICAL HISTORY: Post line placement. COMPARISON: Today at 1543. TECHNIQUE: 1 view. FINDINGS: Lungs/Pleura: No focal opacities evident. No pleural effusion. No pneumothorax. Mediastinum: Within exam limitations, cardiomediastinal contour is normal. Other: Right IJ line to the low SVC. IMPRESSION: Right IJ line to the low SVC, otherwise no change. No pneumothorax identified. [facility] Referring Provider Line: [phone] SITE ID: [id number]
[2016-08-11] MEDS ORDERED: METOPROLOL 5 MG/5 ML VIAL IVP PRN (18:31)
[2016-08-11] MEDS ORDERED: SODIUM CHLORIDE 0.9% 1,000 ML IV ONE (22:29)
[2016-08-11] MEDS: METOPROLOL 5 MG/5 ML VIAL IVP PRN (22:31)
[2016-08-11] MEDS ORDERED: IOPAMIDOL-300 100 ML VIAL IVP ONE (22:38)
[2016-08-11] MEDS ORDERED: IOPAMIDOL-300 50 ML VIAL PO ONE (22:38)
[2016-08-12] MEDS ORDERED: MAGNESIUM SULFATE 2 GM in SODIUM CHLORIDE 0.9% 50 ML IV ONE (00:47)
[2016-08-12] MEDS ORDERED: SODIUM CHLORIDE 0.9% 1,000 ML IV ONE (00:48)
--- NOTE | 2016-08-12 02:06 | CT Preliminary Report ---
Exam: CT Abdomen/Pelvis W/ IMPRESSION: 1. Status post prostatectomy. Multiple bladder diverticula noted. Small amount of free fluid in the p rcis. No abscess. 2. Diverticulosis. No colonic inflammation. No obstruction. 3. No new pathologic adenopathy in abdomen or pelvis. 4. Cholelithiasis without active inflammation. 5. Hiatal hernia. Small bilateral effusions. [facility] SITE ID: [id number]
--- NOTE | 2016-08-12 02:09 | CT Report ---
EXAM: CT ABDOMEN AND PELVIS EXAM DATE: 08/11/2016 10:35 PM. CLINICAL HISTORY: Sepsis, lfts up,prostate ca, abd distension. COMPARISONS: 02/16/2013. TECHNIQUE: Routine helical CT imaging was performed through the abdomen and pelvis. IV contrast: 100 cc Omnipaque 300. Enteric contrast: Yes. Reconstructions: Coronal and sagittal. In accordance with CT protocol optimization, one or more of the following dose reduction techniques w ere utilized for this exam: automated exposure control, adjustment of mA and/or KV based on patient s ize, or use of iterative reconstructive technique. FINDINGS: Lung Bases: Lower lobe atelectasis noted. Small bilateral right greater than left effusions. Moderate hiatus hernia. Liver: Normal. No masses. Gallbladder/Bile Ducts: Small amount of debris in the gallbladder neck. No inflammation noted in the gallbladder fossa. No dilated common bile duct. Spleen: Normal. Pancreas: Normal. Adrenal Glands: Normal. Kidneys: Normal. No masses or hydronephrosis. Simple renal cysts are noted. Peritoneal Cavity/Bowel: Small amount of fluid is present in the pelvis. No abscess. No mass or adeno jenifer noted. The appendix is well visualized and normal. Moderate amount of stool is noted in the rec ila. Presacral stranding is noted. Pelvic Organs: Status post prostatectomy. Dubon catheter noted in the bladder. There are several blad mateo diverticula noted with the largest noted anteriorly measuring 2.5 cm. Stranding is noted adjacent to the bladder. No pelvic mass or adenopathy. Vasculature: Diffuse atheromatous plaques are present in the abdominal aorta and branch vessels. No a neurysm. Normal IVC. Bones: Small sclerotic foci are noted in the left iliac adjacent to the SI joint without accompanying cortical breakthrough or mass. Additional right iliac sclerotic focus noted. Rounded T2 and scleroti c focus in the left side of the vertebral body best seen on image 6, 37 Other: None. IMPRESSION: 1. Status post prostatectomy. Multiple bladder diverticula noted. Small amount of free fluid in the p cris. No abscess. 2. Diverticulosis. No colonic inflammation. No obstruction. 3. No new pathologic adenopathy in abdomen or pelvis. 4. Cholelithiasis without active inflammation. 5. Hiatal hernia. Small bilateral effusions. [facility] Referring Provider Line: [phone] SITE ID: [id number]
[2016-08-12] MEDS ORDERED: SODIUM CHLORIDE 0.9% 1,000 ML IV SCH (03:19)
[2016-08-12 04:56] LABS: ALBUMIN/GLOBULIN RATIO 0.8 (1.0-2.2); BILIRUBIN,TOTAL 1.8 mg/dL (0.2-1.0); BUN - BLOOD UREA NITROGEN 31 mg/dL (6-20); CALCIUM 7.4 mg/dL (8.5-10.3); CARBON DIOXIDE - CO2 17 mmol/L (21-32); CHLORIDE 111 mmol/L (101-111); CREATININE 0.9 mg/dL (0.6-1.2); GFR - MDRD 84 (>89); GLUCOSE 141 mg/dL (70-100); MAGNESIUM 2.4 mg/dL (1.7-2.8); PHOSPHORUS 2.1 mg/dL (2.5-4.6); POTASSIUM 3.6 mmol/L (3.5-5.0); SODIUM 135 mmol/L (135-145); TOTAL PROTEIN 4.5 g/dL (6.7-8.2)
[2016-08-12 04:58] LABS: BASOPHILS % (AUTO) 0.2 %; HCT - HEMATOCRIT 26.8 % (42.0-52.0); HGB - HEMOGLOBIN 9.1 g/dL (14.0-18.0); LYMPHOCYTES % (AUTO) 3.1 %; MEAN CORPUSCULAR HEMOGLOBIN 31.6 pg (27.0-31.0); MEAN PLATELET VOLUME 9.5 fL (7.4-11.4); MONOCYTES % (AUTO) 5.8 %; NEUTROPHILS % (AUTO) 90.9 %; RED BLOOD COUNT 2.88 10^6/uL (4.70-6.10); RED CELL DISTRIBUTION WIDTH 13.7 % (12.0-15.0); UNCORRECTED WHITE BLOOD COUNT 16.9 x10^3/uL; WHITE BLOOD COUNT 16.9 x10^3/uL (4.8-10.8)
[2016-08-12 05:44] LABS: CALCIUM, IONIZED 1.15 mmol/L (1.15-1.33); VBG PH 7.305 (7.31-7.41)
[2016-08-12] MEDS: PIPERACILLIN/TAZOBACTAM 3.375 GM in SODIUM CHLORIDE 0.9% MINIBAG 100 ML IV SCH ×4 (05:58→23:41)
[2016-08-12] MEDS: methylPREDNISolone SUCCINATE 40 MG/ML VIAL IVP SCH ×2 (05:58→15:53)
[2016-08-12] MEDS ORDERED: POTASSIUM PHOSPHATE 15 MMOL in SODIUM CHLORIDE 0.9% 250 ML IV SCH (06:00)
[2016-08-12] MEDS ORDERED: SODIUM CHLORIDE 0.9% 250 ML IV ONE (06:16)
[2016-08-12] MEDS: PANTOPRAZOLE 40 MG VIAL IVP SCH (06:31)
[2016-08-12] MEDS: SODIUM CHLORIDE FLUSH 0.9% 10 ML SYRINGE IVP SCH ×3 (06:32→21:24)
[2016-08-12 06:39] LABS: BAND NEUTROPHILS % (MANUAL) 33 %; LYMPHOCYTES % (MANUAL) 4 %; NEUTROPHILS % (MANUAL) 54 %; TOTAL CELLS COUNTED 100
[2016-08-12 06:40] LABS: NP AUTO DIFFERENTIAL? YES; NP MAN DIFFERENTIAL? NO; PLATELET ESTIMATE, MANUAL DECREASED (<130,000) (NORMAL); PLATELET MORPHOLOGY NORMAL APPEARANCE (NORMAL)
--- NOTE | 2016-08-12 06:42 | PROVIDER PROGRESS NOTE ---
Assessment/Plan - Problem List (1) Sepsis Qualifiers: Sepsis type: sepsis due to unspecified organism Qualified Code(s): A41.9 - Sepsis, unspecified organism Assessment/Plan: 70 yo male with sepsis s/p Bedside Chemoport removal\ - Packing changed with pocket irrigation., Fresh packing placed. Surgery will change next am Primary medical team to manage medical issues - Current Meds Current Meds: Current Medications Generic Name Dose Route Start Last Admin Trade Name Freq PRN Reason Stop Dose Admin Aspirin 81 mg 08/11/16 09:00 08/11/16 08:43 [facility] Aspirin PO Not Given DAILY WERNER Diphenhydramine HCl 25 mg 08/11/16 13:36 08/11/16 21:50 Benadryl Inj IVP 25 mg Q6H PRN Administration Allergy Symptoms Enoxaparin Sodium 40 mg 08/11/16 09:00 08/11/16 08:43 Lovenox SUBQ 40 mg DAILY WERNER Administration Sodium Chloride 1,000 mls @ 150 mls/hr 08/10/16 22:00 08/11/16 23:49 Normal Saline 0.9% IV 150 mls/hr .[id number] WERNER Administration Piperacillin Sod/Tazobactam 100 mls @ 200 mls/hr 08/11/16 00:00 08/12/16 05:58 Sod 3.375 gm/ Sodium Chloride IV 200 mls/hr Q6HR WERNER Administration Vancomycin HCl 1 gm/ Sodium 250 mls @ 166.667 mls/hr 08/11/16 09:00 08/11/16 20 :55 Chloride IV 166.667 mls/hr BID WERNER Administration Ranitidine HCl 50 mg/ Sodium 52 mls @ 500 mls/hr 08/11/16 14:00 08/11/16 20:51 Chloride IV 500 mls/hr BID WERNER Administration Norepinephrine Bitartrate 8 mg 250 mls @ 15 mls/hr 08/11/16 20:00 08/12/16 06: 12 / Dextrose IV 4 mcg/min .[id number] WERNER Titration Protocol 8 MCG/MIN Potassium Phosphate 15 mmol/ 255 mls @ 63 mls/hr 08/12/16 06:00 08/12/16 06:32 Sodium Chloride IV 08/12/16 11:00 63 mls/hr ONCE WERNER Administration Protocol Methylprednisolone 40 mg 08/11/16 14:00 08/12/16 05:58 Solu-Medrol (40mg Vial) IVP 40 mg TID WERNER Administration Metoprolol Tartrate 5 mg 08/11/16 19:18 08/11/16 22:31 Lopressor Inj IVP 5 mg Q4H PRN Administration Hypertensive Emergency Morphine Sulfate 2 mg 08/10/16 21:03 08/11/16 02:50 Morphine IVP 2 mg Q2HR PRN Administration Pain 8 to 10 Ondansetron HCl 4 mg 08/10/16 21:03 08/11/16 17:11 Zofran Inj IVP 4 mg Q6HR PRN Administration Nausea / Vomiting Pantoprazole Sodium 40 mg 08/11/16 07:00 08/12/16 06:31 Protonix IVP 40 mg QDAC WERNER Administration Polyethylene Glycol 17 gm 08/11/16 09:00 08/11/16 08:43 Miralax PO Not Given DAILY WERNER Saccharomyces Boulardii 250 mg 08/11/16 08:00 08/11/16 17:13 Florastor PO Not Given BIDWM WERNER Sodium Chloride 10 ml 08/10/16 22:00 08/12/16 06:32 Normal Saline Flush 0.9% IVP 10 ml Q8HR WERNER Administration - Lab Result Fish Bone Diagrams: 08/12/16 04:35 08/12/16 04:35 - Additional Planning My Orders: My Active Orders 08/11/16 15:30 CUL, CATHETER TIP [RM] Stat 08/11/16 15:51 CUL, CATHETER TIP [RM] Stat Subjective - Subjective Patient Reports: Resting Comfortably Nursing Reports: No Complaints Objective Vital Signs: Vital Signs - 24 hr 08/11/16 08/11/16 08/11/16 08:36 08:43 10:23 Temperature 36.9 C 36.6 C Heart Rate [ 124 H 105 H Monitoring electrodes] Respiratory 36 H 35 H Rate Blood Pressure 112/71 Blood Pressure 113/72 91/61 [Right Brachial artery] O2 Saturation 95 97 08/11/16 08/11/16 08/11/16 12:00 14:00 14:15 Temperature 36.8 C Heart Rate [ 105 H 110 H 111 H Monitoring electrodes] Respiratory 28 H 22 27 H Rate Blood Pressure Blood Pressure 94/58 L 114/61 108/58 L [Right Brachial artery] O2 Saturation 97 97 97 08/11/16 08/11/16 08/11/16 14:30 18:00 18:39 Temperature Heart Rate [ 108 H 113 H Monitoring electrodes] Respiratory 20 28 H Rate Blood Pressure 104/55 L Blood Pressure 107/57 L 122/78 [Right Brachial artery] O2 Saturation 97 96 08/11/16 08/11/16 08/11/16 18:56 19:09 20:00 Temperature 36.7 C Heart Rate [ 138 H 144 H Monitoring electrodes] Respiratory 28 H 27 H Rate Blood Pressure 90/61 Blood Pressure 95/62 120/70 [Right Brachial artery] O2 Saturation 97 97 08/11/16 08/11/16 08/11/16 21:00 22:00 22:31 Temperature Heart Rate [ 143 H 146 H Monitoring electrodes] Respiratory 26 H 25 H Rate Blood Pressure 106/76 Blood Pressure 116/67 117/83 H [Right Brachial artery] O2 Saturation 98 99 08/11/16 08/11/16 08/12/16 22:58 23:01 00:00 Temperature 36.7 C Heart Rate [ 130 H 148 H Monitoring electrodes] Respiratory 21 27 H Rate Blood Pressure 97/65 Blood Pressure 97/65 111/78 [Right Brachial artery] O2 Saturation 99 99 08/12/16 08/12/16 08/12/16 01:00 02:00 03:00 Temperature Heart Rate [ 139 H 130 H 129 H Monitoring electrodes] Respiratory 22 21 20 Rate Blood Pressure Blood Pressure 107/79 103/66 103/67 [Right Brachial artery] O2 Saturation 96 95 94 08/12/16 08/12/16 04:00 05:00 Temperature 36.8 C Heart Rate [ 122 H 126 H Monitoring electrodes] Respiratory 19 21 Rate Blood Pressure Blood Pressure 112/66 114/78 [Right Brachial artery] O2 Saturation 94 94 Oxygen O2 Source Room air I&O (Last 24 Hrs): Intake and Output Totals x24h 08/10/16 08/11/16 08/12/16 23:59 23:59 23:59 Intake Total 6563 4277 Output Total 325 852 200 Balance -325 5711 4077 General: Alert, Oriented x3, Cooperative HEENT: EOMI Neck: Supple Neuro: CN 2-12 Grossly Intact Cardiovascular: Other (Tachycardia) Respiratory: Rhonchi, Other (procedural site with decreasing erythema, no discharge. Fresh packing placed after irrigation.) - Results Results: Laboratory Results WBC 16.9 x10^3/uL (4.8-10.8) H 08/12/16 04:35 RBC 2.88 10^6/uL (4.70-6.10) L 08/12/16 04:35 Hgb 9.1 g/dL (14.0-18.0) L 08/12/16 04:35 Hct 26.8 % (42.0-52.0) L 08/12/16 04:35 MCV 93.0 fL (80.0-94.0) 08/12/16 04:35 MCH 31.6 pg (27.0-31.0) H 08/12/16 04:35 MCHC 34.0 g/dL (32.0-36.0) 08/12/16 04:35 RDW 13.7 % (12.0-15.0) 08/12/16 04:35 Plt Count 120 10^3/uL (130-450) L 08/12/16 04:35 MPV 9.5 fL (7.4-11.4) 08/12/16 04:35 Neut # Not Reportable 08/11/16 06:15 Lymph # Not Reportable 08/11/16 06:15 [place] # Not Reportable 08/11/16 06:15 Eos # Not Reportable 08/11/16 06:15 Baso # Not Reportable 08/11/16 06:15 Absolute Nucleated RBC Not Reportable 08/11/16 06:15 Total Counted 100 08/11/16 06:15 Band Neuts % (Manual) 31 % (0-10) H 08/11/16 06:15 Reactive Lymphs % (Man) 11 % 08/11/16 06:15 Metamyelocytes % 15 % (-0) H 08/11/16 06:15 Neutrophils # (Manual) 1.6 10^3/uL (1.5-6.6) 08/11/16 06:15 Lymphocytes # (Manual) 1.0 10^3/uL (1.5-3.5) L 08/11/16 06:15 Monocytes # (Manual) 0.3 10^3/uL (0.0-1.0) 08/11/16 06:15 Nucleated RBCs Not Reportable 08/11/16 06:15 Differential Comment MANUAL DIFFERENTIAL 08/11/16 06:15 WBC Morphology 1+ VACUOLATION (NORMAL) 08/11/16 06:15 Platelet Estimate DECREASED (<130,000) (NORMAL) 08/11/16 06:15 Platelet Morphology NORMAL APPEARANCE (NORMAL) 08/11/16 06:15 RBC Morph Micro Appear 1+ ESTEBNA CELLS (NORMAL) 1+ TEARDROP CELLS (NORMAL) 1+ SCHISTOCYTES (NORMAL) 08/11/16 06:15 RBC Morph Micro Appear 1+ ESTEBAN CELLS (NORMAL) 1+ TEARDROP CELLS (NORMAL) 1+ SCHISTOCYTES (NORMAL) 08/11/16 06:15 RBC Morph Micro Appear 1+ ESTEBAN CELLS (NORMAL) 1+ TEARDROP CELLS (NORMAL) 1+ SCHISTOCYTES (NORMAL) 08/11/16 06:15 PT 17.1 secs (9.9-12.6) H 08/11/16 11:40 INR 1.5 (0.8-1.2) H 08/11/16 11:40 APTT 36.7 secs (24.9-33.3) H 08/11/16 11:40 VBG pH 7.305 (7.31-7.41) L 08/12/16 04:35 Ionized Calcium 1.15 mmol/L (1.15-1.33) 08/12/16 04:35 Sodium 135 mmol/L (135-145) 08/12/16 04:35 Potassium 3.6 mmol/L (3.5-5.0) 08/12/16 04:35 Chloride 111 mmol/L (101-111) 08/12/16 04:35 Carbon Dioxide 17 mmol/L (21-32) L 08/12/16 04:35 Anion Gap 7.0 (6-13) 08/12/16 04:35 BUN 31 mg/dL (6-20) H 08/12/16 04:35 Creatinine 0.9 mg/dL (0.6-1.2) 08/12/16 04:35 Estimated GFR (MDRD) 84 (>89) L 08/12/16 04:35 Glucose 141 mg/dL (70-100) H 08/12/16 04:35 Lactic Acid 1.1 mmol/L (0.5-2.2) 08/12/16 04:35 Calcium 7.4 mg/dL (8.5-10.3) L 08/12/16 04:35 Ionized Calcium YES 08/12/16 04:35 Phosphorus 2.1 mg/dL (2.5-4.6) L 08/12/16 04:35 Magnesium 2.4 mg/dL (1.7-2.8) 08/12/16 04:35 Total Bilirubin 1.8 mg/dL (0.2-1.0) H 08/12/16 04:35 AST 127 IU/L (10-42) H 08/12/16 04:35 ALT 58 IU/L (10-60) 08/12/16 04:35 Alkaline Phosphatase 34 IU/L (42-121) L 08/12/16 04:35 Total Protein 4.5 g/dL (6.7-8.2) L 08/12/16 04:35 Albumin 2.0 g/dL (3.2-5.5) L 08/12/16 04:35 Globulin 2.5 g/dL (2.1-4.2) 08/12/16 04:35 Albumin/Globulin Ratio 0.8 (1.0-2.2) L 08/12/16 04:35 Lipase 16 U/L (22-51) L 08/10/16 17:30 Urine Color DK. ORANGE 08/10/16 18:00 Urine Clarity CLOUDY (CLEAR) 08/10/16 18:00 Urine pH 5.5 PH (5.0-7.5) 08/10/16 18:00 Ur Specific [place] >=1.030 (1.002-1.030) H 08/10/16 18:00 Urine Protein 100 mg/dL (NEGATIVE) H 08/10/16 18:00 Urine Glucose (UA) NEGATIVE mg/dL (NEGATIVE) 08/10/16 18:00 Urine Ketones TRACE mg/dL (NEGATIVE) 08/10/16 18:00 Urine Occult Blood LARGE (NEGATIVE) H 08/10/16 18:00 Urine Nitrite POSITIVE (NEGATIVE) H 08/10/16 18:00 Urine Bilirubin NEGATIVE (NEGATIVE) 08/10/16 18:00 Urine Urobilinogen 4 E.U./dL (NORMAL) H 08/10/16 18:00 Ur Leukocyte Esterase NEGATIVE (NEGATIVE) 08/10/16 18:00 Urine RBC None Seen /HPF (0-5) 08/10/16 18:00 Urine WBC 4-5 /HPF (0-3) 08/10/16 18:00 Ur Epithelial Cells RARE Renal Tubular /HPF (<= Few) 08/10/16 18:00 Ur Squamous Epith Cells FEW Squamous (<= Few) 08/10/16 18:00 Urine Bacteria Many /HPF (None Seen) H 08/10/16 18:00 Urine Casts 0-2 Granular Casts /LPF 08/10/16 18:00 Urine Mucus Marked Strands 08/10/16 18:00 Ur Microscopic Review INDICATED 08/10/16 18:00 Urine Culture Comments INDICATED 08/10/16 18:00
[2016-08-12] MEDS: SACCHAROMYCES BOULARDII 250 MG CAPSULE PO SCH ×2 (08:06→17:04)
--- NOTE | 2016-08-12 08:11 | PROVIDER PROGRESS NOTE ---
Subjective - Prog Note Date Prog Note Date: 08/12/16 Prog Note Time: 11:20 - Subjective Pt reports feeling: Improved Subjective: when I walked in this morning he was looked right at me and said hello. This was in marked difference to the last few days where he has been severely lethargic, disoriented and mumbling speech pattern He had his port line removed yesterday afternoon and a new central line placed in the right IJ. The tip was sent for culture. He has had a continued tachycardia and it is atrial fibrillation. Yesterday we started Lopressor intravenously to control rate. That was minimally successful. I then started diltiazem and that is working a little better. While he is exhausted, has a very weak cough, he denies chest pain. I checked a troponin and it is 7. Current Medications - Current Medications Current Medications: Active Medications Acetaminophen (Tylenol) 650 mg PO Q4HR PRN PRN Reason: Pain 1 to 4 Aspirin ([place] Aspirin) 81 mg PO DAILY [facility] Last Admin: 08/12/16 09:12 Dose: 81 mg Diphenhydramine HCl (Benadryl Inj) 25 mg IVP Q6H PRN PRN Reason: Allergy Symptoms Last Admin: 08/11/16 21:50 Dose: 25 mg Enoxaparin Sodium (Lovenox) 40 mg SUBQ DAILY [facility] Last Admin: 08/12/16 09:12 Dose: 40 mg Heparin Sodium (Beef Lung) () 30 - 50 unit IVP ONCE PRN PRN Reason: Port Protocol (<24 hours) Stop: 09/10/16 06:32 Sodium Chloride (Normal Saline 0.9%) 1,000 mls @ 150 mls/hr IV .Q6H40M [facility] Last Admin: 08/12/16 09:19 Dose: 150 mls/hr Piperacillin Sod/Tazobactam (Sod 3.375 gm/ Sodium Chloride) 100 mls @ 200 mls/ hr IV Q6HR [facility] Last Admin: 08/12/16 05:58 Dose: 200 mls/hr Vancomycin HCl 1 gm/ Sodium (Chloride) 250 mls @ 166.667 mls/hr IV BID [facility] Last Admin: 08/12/16 09:17 Dose: 166.667 mls/hr Ranitidine HCl 50 mg/ Sodium (Chloride) 52 mls @ 500 mls/hr IV BID [facility] Last Admin: 08/12/16 09:06 Dose: 500 mls/hr Norepinephrine Bitartrate 8 mg (/ Dextrose) 250 mls @ 15 mls/hr IV .[id number] WERNER ; 8 MCG/MIN PRN Reason: Protocol Last Titration: 08/12/16 07:50 Dose: 2 mcg/min Diltiazem HCl 125 mg/ Dextrose 125 mls @ 5 mls/hr IV .Q25H WERNER; 5 MG/HR PRN Reason: Protocol Last Titration: 08/12/16 10:12 Dose: 15 mg/hr Methylprednisolone (Solu-Medrol (40mg Vial)) 40 mg IVP TID [facility] Last Admin: 08/12/16 05:58 Dose: 40 mg Metoprolol Tartrate (Lopressor Inj) 5 mg IVP Q4H PRN PRN Reason: Hypertensive Emergency Last Admin: 08/11/16 22:31 Dose: 5 mg Morphine Sulfate (Morphine) 2 mg IVP Q2HR PRN PRN Reason: Pain 8 to 10 Last Admin: 08/11/16 02:50 Dose: 2 mg Ondansetron HCl (Zofran Inj) 4 mg IVP Q6HR PRN PRN Reason: Nausea / Vomiting Last Admin: 08/11/16 17:11 Dose: 4 mg Oxycodone HCl (Roxicodone) 5 mg PO Q4HR PRN PRN Reason: Pain 5 to 7 Oxycodone HCl (Roxicodone) 10 mg PO Q4HR PRN PRN Reason: Pain 8 to 10 Pantoprazole Sodium (Protonix) 40 mg IVP QDAC [facility] Last Admin: 08/12/16 06:31 Dose: 40 mg Polyethylene Glycol (Miralax) 17 gm PO DAILY [facility] Last Admin: 08/11/16 08:43 Dose: Not Given Prochlorperazine Edisylate (Compazine Inj) 10 mg IVP Q6HR PRN PRN Reason: Nausea / Vomiting Saccharomyces Boulardii (Florastor) 250 mg PO BIDWM [facility] Last Admin: 08/12/16 08:06 Dose: 250 mg Sodium Chloride (Normal Saline Flush 0.9%) 10 ml IVP PRN PRN PRN Reason: NEEDED PER PROVIDER ORDERS Last Admin: 08/12/16 08:27 Dose: 10 ml Sodium Chloride (Normal Saline Flush 0.9%) 10 ml IVP Q8HR [facility]ERN[facility] Last Admin: 08/12/16 06:32 Dose: 10 ml Aspirin 81 mg PO DAILY 08/10/16 Bisoprolol Fumarate/Hctz [Bisoprolol-Hctz 10-6.25 mg Tab] 1 each PO DAILY Objective - Vital Signs/Intake & Output Reviewed Vital Signs: Yes Vital Signs: Vital Signs Temp Pulse Resp BP Pulse Ox 08/12/16 07:27 36.5 C 131 H 23 120/99 H 93 08/12/16 06:47 128 H 22 100/68 93 08/12/16 06:00 129 H 24 106/76 94 08/12/16 05:00 126 H 21 114/78 94 Intake & Output: Intake & Output 08/09/16 08/10/16 08/11/16 08/12/16 23:59 23:59 23:59 23:59 Intake Total 2920 6840 Output Total 325 852 285 Balance -325 5711 4249 - Objective General Appearance: positive: No acute distress, Alert, Other (very weak, sallow , middle-age white male who is so tired he cannot lift his head off the pillow) Eyes Bilateral: positive: PERRL, EOMI ENT: positive: Dry mucous membranes, Other (he put his dentures back in). negative: Pharyngeal erythema Neck: positive: No JVD, Lymphadenopathy (R) (shotty), Lymphadenopathy (L) ( shotty). negative: Stiff neck, Carotid bruit Respiratory: positive: Chest non-tender, Rhonchi. negative: Wheezes Cardiovascular: positive: Irregularly irregular, Tachycardia. negative: Gallop/ S4, Friction rub Abdomen: positive: Nml bowel sounds, Tenderness (mild and over the suprapubic area), Other (still mildly to mod distended. he had a lot of distension even before admisson but no pain and lots of belching. this is a bit more than at home but not much). negative: Guarding, Rebound Skin: positive: Warm, Dry, Other (sallow with mild jaundice) Extremities: positive: Full ROM, Pedal edema, Other (left forearm very swollen down to hand) Neurologic/Psychiatric: positive: Oriented x3, CN's nml (2-12), Motor nml, Weakness - Lab Results Fish Bones: 08/12/16 04:35 08/12/16 04:35 Other Labs: Lab Results x24hrs 08/12/16 08/12/16 08/12/16 Range/Units 04:35 04:35 04:35 WBC (4.8-10.8) x10^3/uL RBC (4.70-6.10) 10^6/uL Hgb (14.0-18.0) g/dL Hct (42.0-52.0) % MCV (80.0-94.0) fL MCH (27.0-31.0) pg MCHC (32.0-36.0) g/dL RDW (12.0-15.0) % Plt Count (130-450) 10^3/uL MPV (7.4-11.4) fL Neut # Lymph # [place] # Eos # Baso # Absolute Nucleated RBC Total Counted Band Neuts % (Manual) (0 - 10) % Reactive Lymphs % (Man) % Metamyelocytes % ( - 0) % Neutrophils # (Manual) (1.5-6.6) 10^3/uL Lymphocytes # (Manual) (1.5-3.5) 10^3/uL Monocytes # (Manual) (0.0-1.0) 10^3/uL Nucleated RBCs % Differential Comment Platelet Estimate (NORMAL) Platelet Morphology (NORMAL) RBC Morph Micro Appear (NORMAL) PT (9.9-12.6) secs INR (0.8-1.2) APTT (24.9-33.3) secs VBG pH 7.305 L (7.31-7.41) Ionized Calcium 1.15 YES (1.15-1.33) mmol/L Sodium 135 (135-145) mmol/L Potassium 3.6 (3.5-5.0) mmol/L Chloride 111 (101-111) mmol/L Carbon Dioxide 17 L (21-32) mmol/L Anion Gap 7.0 (6-13) BUN 31 H (6-20) mg/dL Creatinine 0.9 (0.6-1.2) mg/dL Estimated GFR (MDRD) 84 L (>89) Glucose 141 H (70-100) mg/dL Lactic Acid 1.1 (0.5-2.2) mmol/L Calcium 7.4 L (8.5-10.3) mg/dL Phosphorus 2.1 L (2.5-4.6) mg/dL Magnesium 2.4 (1.7-2.8) mg/dL Total Bilirubin 1.8 H (0.2-1.0) mg/dL AST 127 H (10-42) IU/L ALT 58 (10-60) IU/L Alkaline Phosphatase 34 L (42-121) IU/L Total Protein 4.5 L (6.7-8.2) g/dL Albumin 2.0 L (3.2-5.5) g/dL Globulin 2.5 (2.1-4.2) g/dL Albumin/Globulin Ratio 0.8 L (1.0-2.2) 08/12/16 08/11/16 Range/Units 04:35 11:40 WBC 16.9 H (4.8-10.8) x10^3/uL RBC 2.88 L (4.70-6.10) 10^6/uL Hgb 9.1 L (14.0-18.0) g/dL Hct 26.8 L (42.0-52.0) % MCV 93.0 (80.0-94.0) fL MCH 31.6 H (27.0-31.0) pg MCHC 34.0 (32.0-36.0) g/dL RDW 13.7 (12.0-15.0) % Plt Count 120 L (130-450) 10^3/uL MPV 9.5 (7.4-11.4) fL Neut # Not Reportable Lymph # Not Reportable [place] # Not Reportable Eos # Not Reportable Baso # Not Reportable Absolute Nucleated RBC Not Reportable Total Counted 100 Band Neuts % (Manual) 33 H (0 - 10) % Reactive Lymphs % (Man) 1 % Metamyelocytes % 3 H ( - 0) % Neutrophils # (Manual) 14.7 H (1.5-6.6) 10^3/uL Lymphocytes # (Manual) 0.8 L (1.5-3.5) 10^3/uL Monocytes # (Manual) 0.8 (0.0-1.0) 10^3/uL Nucleated RBCs 1 % Differential Comment MANUAL DIFFERENTIAL Platelet Estimate DECREASED (<130,000) (NORMAL) Platelet Morphology NORMAL APPEARANCE (NORMAL) RBC Morph Micro Appear 2+ ESTEBAN CELLS (NORMAL) PT 17.1 H (9.9-12.6) secs INR 1.5 H (0.8-1.2) APTT 36.7 H (24.9-33.3) secs VBG pH (7.31-7.41) Ionized Calcium (1.15-1.33) mmol/L Sodium (135-145) mmol/L Potassium (3.5-5.0) mmol/L Chloride (101-111) mmol/L Carbon Dioxide (21-32) mmol/L Anion Gap (6-13) BUN (6-20) mg/dL Creatinine (0.6-1.2) mg/dL Estimated GFR (MDRD) (>89) Glucose (70-100) mg/dL Lactic Acid (0.5-2.2) mmol/L Calcium (8.5-10.3) mg/dL Phosphorus (2.5-4.6) mg/dL Magnesium (1.7-2.8) mg/dL Total Bilirubin (0.2-1.0) mg/dL AST (10-42) IU/L ALT (10-60) IU/L Alkaline Phosphatase (42-121) IU/L Total Protein (6.7-8.2) g/dL Albumin (3.2-5.5) g/dL Globulin (2.1-4.2) g/dL Albumin/Globulin Ratio (1.0-2.2) Assessment/Plan - Problem List (1) Persistent atrial fibrillation with RVR Impression: started on diltiazem drip. continue lopressor Check TSH Cause may be MN. Left arm is swollen, will order doppler for DVT (2) NSTEMI (non-ST elevated myocardial infarction) Impression: Cause is either intrinsic CAD or the stress of the sepsis. I Spoke to Dr. Norah Messina who is education specialist for [facility]. I described the patient to her. I explained that I think that this is in association with either demand ischemia from the sepsis /A. fib or he may have had as yet undiagnosed coronary artery disease. I also explained that is an NSTEMI. She and I are in agreement that stabilizing his medical comorbidities are more important at this time and not undergoing evaluation for coronary artery disease. She recommends aspirin, beta blockers, and anticoagulation as tolerated. Get him through this initial period and in the outpatient setting set him up with a cardiology visit and a nuclear medicine stress test. I explained this to the and the patient. He is understandably concerned about doing a [place] protocol. I explained that there are chemical ways we can stress as hard without him having to get on a treadmill. Plan now is to start aspirin, check an echo and continue Lopressor IV (3) Severe sepsis with acute organ dysfunction due to Gram positive bacteria Impression: Patient presented with fever 37.8C, tachycardia 144, tachypnea 36, hypoxic down to the low 90s on room air, with leukopenia WBC 1.4, elevated lactic acid 3.1 and elevated LFTs. He has sepsis with end organ damage. Patient was toxic appearing on presentation and very lethargic and has not really improved in spite of treatment delineated below. Sources of sepsis reviewed: pneumonia this patient had respiratory distress was hypoxic on presentation with coughing and shortness of breath and a chest x-ray showed right base infiltrate. Source could also be urine as the patient did have positive nitrates with pyuria and bacteria in the urine. Source could also be intra-abdominal as the patient did have elevated LFTs and does have abdominal distention with tenderness and vomiting but no peritoneal signs. US of abdomen is neg other than 9 mm CBD dilation. Source was unlikely to be the port as it appears to be clean with no surrounding erythema BUT with positive gram positive bacteria in blood in an immunocompromised patient with a port and s/p chemo I stronly suspected line infection. Blood and urine culture now growing Staph aureus. Sensitivities pending. Port removed 08/[address] Hawk and tip sent for culture. No report of that yet. CT of abdomen done 08/11 and shows no pathology other than free fluid. Abd exam still distended but not tender. At this time stabilized his down hill slide and he is improving. Lactic acid trending down. BP stable. WBC has come up from neutropenia Obtundation and lethargy very very improved. Plan: Transferred to ICU 08/11. Keep here until off of levophed. Continue IV fluids with aggressive resuscitation Broad-spectrum antibiotics: IV vancomycin and IV Zosyn Day #3 today. . Blood cultures x2 done and positive. Await ID and sensitivities Once final sensitivities come back adjust down to single agent Vancomycin. Tylenol for fever Monitor kidney and liver function Continue to monitor mentation (4) Neutropenic fever Conclusion/Plan: Todays CBC shows neutropenia to have resolved. Good sign. Patient presented with a fever of 37.9. He had a fever of 103 in route. The patient was neutropenic with a neutrophil count of 600 on admission. Patient had chemotherapy on 07-31-16 Likely source pneumonia and UTI and port. (5) HCAP (healthcare-associated pneumonia) Conclusion/Plan: Patient presented with severe sepsis and appeared to be in respiratory distress , with hypoxia, tachypnea and febrile Patient currently undergoing chemotherapy for prostate cancer Chest x-ray shows a right base infiltrate. Being treated for healthcare associated pneumonia given recent chemotherapy. Plan: Broad-spectrum antibiotics: IV vancomycin and IV Zosyn Day #3 today Supplemental oxygen Nebs as needed Sputum if can be brought up Continue to monitor closely (6) UTI (urinary tract infection) Conclusion/Plan: patient presented with severe sepsis Urine concerning for UTI with positive nitrite Pyuria and bacteriuria No urinary symptoms the patient septic with lethargy Urine culture (+) for Staph aureus Will treat with IV Vanco and Zosyn, Day #3 Monitor Qualifiers: Urinary tract infection type: acute cystitis Hematuria presence: without hematuria Qualified Code(s): N30.00 - Acute cystitis without hematuria (7) Hypokalemia Conclusion/Plan: Patient presented with hypokalemia K 3.3 last night Likely secondary to nausea and vomiting Replaced potassium and 3.6 today (8) Elevated LFTs Conclusion/Plan: Patient presented with elevated LFTs bili of 3.5 AST 160 ALT 77 This could be secondary to severe sepsis with end organ damage It could also be secondary to chemotherapy Given abdominal distention nausea vomiting and abdominal tenderness patient could also have cholecystitis as cause of severe sepsis however patient already has a source and abd US negative. Since distension persists in an immunocompromised male, abdominal/pelvis CT scan done after premedication for allergy and negative for acute cholecystitis, abcess, obstruction. (9) Prostate cancer Conclusion/Plan: treated outpatient at [facility] Patient's oncologist is Dr. Knapp. Case reviewed with the Oncologist education specialist for Dr. Knapp. Initially underwent hormone therapy and then had a prostatectomy in December 2015 PSA increased therefore started chemotherapy in May 2016 Currently undergoing chemotherapy every 3 weeks most recently 07-31-16 Also with adjuvant hormone injections every 3 months He agrees with [facility] and doesn't feel patient needs transfer at this time since their treatment would be no different than current plan. To call him back if necessary. Today the patient wants a PSA checked and it was >4. Last time he checked it was ~1.2. Very concerned about getting chemo on time next week and I gently explained that chemo may be delayed on the basis of the sepsis and the MN.
[2016-08-12] MEDS ORDERED: diltiaZEM INJ 5 MG/ML VIAL IVP ONE (08:15)
[2016-08-12] MEDS: SODIUM CHLORIDE FLUSH 0.9% 10 ML SYRINGE IVP PRN ×2 (08:27→18:42)
[2016-08-12] MEDS: raNITIdine INJ 50 MG in SODIUM CHLORIDE 0.9% 50 ML IV SCH ×2 (09:06→20:19)
[2016-08-12] MEDS: ENOXAPARIN 40 MG/0.4 ML SYRINGE SUBQ SCH (09:12)
[2016-08-12] MEDS: ASPIRIN CHEW 81 MG TABLET PO SCH (09:12)
[2016-08-12] MEDS: VANCOMYCIN INJ 1 GM in SODIUM CHLORIDE 0.9% 250 ML IV SCH ×2 (09:17→21:18)
[2016-08-12] MEDS: SODIUM CHLORIDE 0.9% 1,000 ML IV SCH (09:19)
[2016-08-12] MEDS: diltiaZEM INJ 125 MG in DEXTROSE 5% 100 ML IV SCH ×2 (09:26→17:53)
[2016-08-12] MEDS: METOPROLOL 5 MG/5 ML VIAL IVP PRN (11:52)
[2016-08-12] MEDS: POLYETHYLENE GLYCOL 3350 17 GM PACKET PO SCH (12:48)
[2016-08-12] MEDS ORDERED: diphenhydrAMINE 25 MG CAPSULE PO PRN (18:00)
--- NOTE | 2016-08-12 21:36 | Ultrasound Preliminary Report ---
Exam: US Duplex Ext Veins Left IMPRESSION: No evidence for deep vein thrombosis. [facility] SITE ID: [id number]
--- NOTE | 2016-08-12 21:38 | Ultrasound Report ---
EXAM: LEFT UPPER EXTREMITY VENOUS ULTRASOUND EXAM DATE: 08/12/2016 09:26 PM. CLINICAL HISTORY: Left arms swollen, afib. COMPARISON: None. TECHNIQUE: Real-time sonographic vascular imaging was performed by the security operations manager through the upper extremity utilizing both color-flow and Doppler spectral analysis. Multiple veterans employment representative static candis ges were saved for review. FINDINGS: Internal Jugular Vein (IJV): Normal. Subclavian Vein (SCV): Normal. Axillary Vein : Normal. Cephalic Vein (superficial vein): Normal. Basilic Vein (superficial vein): Normal. Brachial Vein: Normal. Other: Edema in the antecubital fossa. IMPRESSION: No evidence for deep vein thrombosis. [facility] Referring Provider Line: [phone] SITE ID: [id number]
[2016-08-13] MEDS: diltiaZEM INJ 125 MG in DEXTROSE 5% 100 ML IV SCH (01:32)
[2016-08-13 05:11] LABS: HCT - HEMATOCRIT 27.3 % (42.0-52.0); HGB - HEMOGLOBIN 9.1 g/dL (14.0-18.0); LYMPHOCYTES % (AUTO) 2.2 %; MEAN CORPUSCULAR HEMOGLOBIN 30.5 pg (27.0-31.0); MEAN CORPUSCULAR HGB CONC 33.3 g/dL (32.0-36.0); MEAN CORPUSCULAR VOLUME 91.6 fL (80.0-94.0); MEAN PLATELET VOLUME 9.4 fL (7.4-11.4); MONOCYTES % (AUTO) 3.3 %; NEUTROPHILS % (AUTO) 94.5 %; RED BLOOD COUNT 2.98 10^6/uL (4.70-6.10); UNCORRECTED WHITE BLOOD COUNT 35.7 x10^3/uL
[2016-08-13 05:26] LABS: WHITE BLOOD COUNT 35.7 x10^3/uL (4.8-10.8)
[2016-08-13 05:27] LABS: ALBUMIN/GLOBULIN RATIO 0.7 (1.0-2.2); BILIRUBIN,TOTAL 1.1 mg/dL (0.2-1.0); BUN - BLOOD UREA NITROGEN 40 mg/dL (6-20); CARBON DIOXIDE - CO2 20 mmol/L (21-32); CHLORIDE 112 mmol/L (101-111); GFR - MDRD 74 (>89); GLUCOSE 161 mg/dL (70-100); MAGNESIUM 2.5 mg/dL (1.7-2.8); PHOSPHORUS 1.6 mg/dL (2.5-4.6); POTASSIUM 3.5 mmol/L (3.5-5.0); SODIUM 138 mmol/L (135-145); TOTAL PROTEIN 4.7 g/dL (6.7-8.2)
[2016-08-13] MEDS ORDERED: POTASSIUM CHLORIDE 20 MEQ TABLET PO SCH (05:48)
[2016-08-13 05:52] LABS: VBG PH 7.378 (7.31-7.41)
[2016-08-13 05:53] LABS: CALCIUM, IONIZED 1.23 mmol/L (1.15-1.33)
[2016-08-13] MEDS ORDERED: POTASSIUM PHOSPHATE 15 MMOL in SODIUM CHLORIDE 0.9% 250 ML IV ONE (06:00)
[2016-08-13] MEDS ORDERED: POTASSIUM PHOSPHATE 15 MMOL in SODIUM CHLORIDE 0.9% 250 ML IV SCH (06:00)
[2016-08-13] MEDS: NEUTRA-PHOS 250 MG TABLET PO SCH ×2 (06:05→07:53)
[2016-08-13] MEDS: SODIUM CHLORIDE FLUSH 0.9% 10 ML SYRINGE IVP SCH (06:09)
[2016-08-13] MEDS: PANTOPRAZOLE 40 MG VIAL IVP SCH (06:10)
[2016-08-13] MEDS: PIPERACILLIN/TAZOBACTAM 3.375 GM in SODIUM CHLORIDE 0.9% MINIBAG 100 ML IV SCH ×3 (06:10→17:09)
[2016-08-13 06:36] LABS: BAND NEUTROPHILS % (MANUAL) 12 %; LYMPHOCYTES % (MANUAL) 4 %; NEUTROPHILS % (MANUAL) 75 %; TOTAL CELLS COUNTED 100
[2016-08-13 06:40] LABS: NP AUTO DIFFERENTIAL? YES; NP MAN DIFFERENTIAL? NO; PLATELET ESTIMATE, MANUAL DECREASED (<130,000) (NORMAL); PLATELET MORPHOLOGY 1+ LARGE PLATELETS (NORMAL)
[2016-08-13] MEDS: SACCHAROMYCES BOULARDII 250 MG CAPSULE PO SCH (07:53)
[2016-08-13] MEDS: ASPIRIN CHEW 81 MG TABLET PO SCH (07:54)
[2016-08-13] MEDS: raNITIdine INJ 50 MG in SODIUM CHLORIDE 0.9% 50 ML IV SCH (09:25)
[2016-08-13] MEDS: ENOXAPARIN 40 MG/0.4 ML SYRINGE SUBQ SCH (09:26)
[2016-08-13] MEDS: METOPROLOL 5 MG/5 ML VIAL IVP PRN (09:28)
[2016-08-13] MEDS: SODIUM CHLORIDE FLUSH 0.9% 10 ML SYRINGE IVP PRN (09:34)
[2016-08-13] MEDS: VANCOMYCIN INJ 1 GM in SODIUM CHLORIDE 0.9% 250 ML IV SCH (09:34)
[2016-08-13] MEDS: POLYETHYLENE GLYCOL 3350 17 GM PACKET PO SCH (09:35)
--- NOTE | 2016-08-13 10:44 | PROVIDER PROGRESS NOTE ---
Assessment/Plan - Problem List (1) Sepsis Qualifiers: Sepsis type: sepsis due to unspecified organism Qualified Code(s): A41.9 - Sepsis, unspecified organism Assessment/Plan: 70 yo male with sepsis s/p Bedside Chemoport removal with growth of Staph Aureus now with elevated Leukocytosis - Packing changed with pocket irrigation., Fresh packing placed. Primary medical team to manage sepsis and medical issues. Possible transfer to [facility] Surgery will follow until then - Current Meds Current Meds: Current Medications Generic Name Dose Route Start Last Admin Trade Name Freq PRN Reason Stop Dose Admin Aspirin 81 mg 08/11/16 09:00 08/13/16 07:54 [facility] Aspirin PO 81 mg DAILY WERNER Administration Diphenhydramine HCl 25 mg 08/11/16 13:36 08/11/16 21:50 Benadryl Inj IVP 25 mg Q6H PRN Administration Allergy Symptoms Diphenhydramine HCl 25 mg 08/12/16 18:00 08/12/16 18:37 Benadryl PO 25 mg Q4HR PRN Administration Allergy Symptoms Enoxaparin Sodium 40 mg 08/11/16 09:00 08/13/16 09:26 Lovenox SUBQ 40 mg DAILY WERNER Administration Piperacillin Sod/Tazobactam 100 mls @ 200 mls/hr 08/11/16 00:00 08/13/16 06:10 Sod 3.375 gm/ Sodium Chloride IV 200 mls/hr Q6HR WERNER Administration Vancomycin HCl 1 gm/ Sodium 250 mls @ 166.667 mls/hr 08/11/16 09:00 08/13/16 09 :34 Chloride IV 166.667 mls/hr BID WERNER Administration Ranitidine HCl 50 mg/ Sodium 52 mls @ 500 mls/hr 08/11/16 14:00 08/13/16 09:25 Chloride IV 500 mls/hr BID WERNER Administration Norepinephrine Bitartrate 8 mg 250 mls @ 15 mls/hr 08/11/16 20:00 08/13/16 08: 44 / Dextrose IV Not Given .[id number] WERNER Protocol 8 MCG/MIN Diltiazem HCl 125 mg/ Dextrose 125 mls @ 5 mls/hr 08/12/16 08:59 08/13/16 05:35 IV 15 mg/hr .Q25H WERNER Titration Protocol 5 MG/HR Potassium Phosphate 15 mmol/ 255 mls @ 63 mls/hr 08/13/16 06:00 08/13/16 06:10 Sodium Chloride IV 08/13/16 11:00 Not Given ONCE WERNER Protocol Metoprolol Tartrate 5 mg 08/11/16 19:18 08/13/16 09:28 Lopressor Inj IVP 5 mg Q4H PRN Administration Hypertensive Emergency Morphine Sulfate 2 mg 08/10/16 21:03 08/11/16 02:50 Morphine IVP 2 mg Q2HR PRN Administration Pain 8 to 10 Ondansetron HCl 4 mg 08/10/16 21:03 08/11/16 17:11 Zofran Inj IVP 4 mg Q6HR PRN Administration Nausea / Vomiting Pantoprazole Sodium 40 mg 08/11/16 07:00 08/13/16 06:10 Protonix IVP 40 mg QDAC WERNER Administration Polyethylene Glycol 17 gm 08/11/16 09:00 08/13/16 09:35 Miralax PO Not Given DAILY WERNER Potassium Chloride 40 meq 08/13/16 05:48 08/13/16 06:05 K-Dur PO 08/13/16 11:00 40 meq ONCE WERNER Administration Protocol Saccharomyces Boulardii 250 mg 08/11/16 08:00 08/13/16 07:53 Florastor PO 250 mg BIDWM WERNER Administration Sodium Chloride 10 ml 08/10/16 21:03 08/13/16 09:34 Normal Saline Flush 0.9% IVP 10 ml PRN PRN Administration NEEDED PER PROVIDER ORDERS Sodium Chloride 10 ml 08/10/16 22:00 08/13/16 06:09 Normal Saline Flush 0.9% IVP 10 ml Q8HR WERNER Administration - Lab Result Lab results reviewed: Yes Fish Bone Diagrams: 08/13/16 04:55 08/13/16 04:55 Subjective - Subjective Patient Reports: Feeling Better (Patient seen at bedside, States feels somewhat better, More alert and talkative today. Urine output around 30-45mL / hr. Chemoport and Blood cultures Growing Staph Aureus. Patient with NSTEMI with troponins trending down. No othere events reported.) Nursing Reports: No Complaints Objective Vital Signs: Vital Signs - 24 hr 08/12/16 08/12/16 08/12/16 10:49 11:19 11:52 Temperature Heart Rate [ 119 H 128 H Monitoring electrodes] Respiratory 21 24 Rate Blood Pressure 101/66 Blood Pressure 99/62 116/70 [Right Brachial artery] Blood Pressure [Right Radial artery] O2 Saturation 92 94 08/12/16 08/12/16 08/12/16 11:54 12:22 12:54 Temperature Heart Rate [ 126 H 108 H Monitoring electrodes] Respiratory 22 21 Rate Blood Pressure 86/55 L Blood Pressure 95/72 99/67 [Right Brachial artery] Blood Pressure [Right Radial artery] O2 Saturation 93 93 08/12/16 08/12/16 08/12/16 13:13 13:37 13:59 Temperature 36.3 C L Heart Rate [ 98 105 H 87 Monitoring electrodes] Respiratory 28 H 23 Rate Blood Pressure Blood Pressure 100/57 L 90/64 93/69 [Right Brachial artery] Blood Pressure [Right Radial artery] O2 Saturation 93 92 08/12/16 08/12/16 08/12/16 14:59 16:04 16:21 Temperature Heart Rate [ 102 H 97 95 Monitoring electrodes] Respiratory 20 16 25 H Rate Blood Pressure Blood Pressure 91/61 92/63 124/62 [Right Brachial artery] Blood Pressure [Right Radial artery] O2 Saturation 92 92 93 08/12/16 08/12/16 08/12/16 17:00 18:00 19:00 Temperature Heart Rate [ 92 99 99 Monitoring electrodes] Respiratory 16 23 24 Rate Blood Pressure Blood Pressure 97/63 97/57 L 110/79 [Right Brachial artery] Blood Pressure [Right Radial artery] O2 Saturation 92 93 92 08/12/16 08/12/16 08/12/16 20:00 21:00 21:27 Temperature 36.6 C Heart Rate [ 92 102 H Monitoring electrodes] Respiratory 23 28 H 23 Rate Blood Pressure Blood Pressure 104/72 97/63 [Right Brachial artery] Blood Pressure [Right Radial artery] O2 Saturation 91 L 91 L 94 08/12/16 08/12/16 08/13/16 22:00 22:48 00:00 Temperature Heart Rate [ 96 100 97 Monitoring electrodes] Respiratory 23 22 21 Rate Blood Pressure Blood Pressure 119/67 120/68 124/62 [Right Brachial artery] Blood Pressure [Right Radial artery] O2 Saturation 92 95 95 08/13/16 08/13/16 08/13/16 01:00 01:50 02:54 Temperature Heart Rate [ 85 86 94 Monitoring electrodes] Respiratory 19 18 22 Rate Blood Pressure Blood Pressure 90/56 L 113/64 [Right Brachial artery] Blood Pressure 104/58 L [Right Radial artery] O2 Saturation 93 95 92 08/13/16 08/13/16 08/13/16 04:00 04:59 06:00 Temperature Heart Rate [ 95 91 96 Monitoring electrodes] Respiratory 23 20 20 Rate Blood Pressure Blood Pressure 116/82 H 112/61 113/67 [Right Brachial artery] Blood Pressure [Right Radial artery] O2 Saturation 95 95 94 08/13/16 08/13/16 08/13/16 06:56 07:46 08:53 Temperature 36.2 C L Heart Rate [ 96 99 107 H Monitoring electrodes] Respiratory 22 21 22 Rate Blood Pressure Blood Pressure 115/67 109/67 129/76 [Right Brachial artery] Blood Pressure [Right Radial artery] O2 Saturation 94 93 93 08/13/16 08/13/16 09:28 09:53 Temperature Heart Rate [ 90 Monitoring electrodes] Respiratory 23 Rate Blood Pressure 129/76 Blood Pressure [Right Brachial artery] Blood Pressure 115/76 [Right Radial artery] O2 Saturation 94 Oxygen O2 Source Room air I&O (Last 24 Hrs): Intake and Output Totals x24h 08/11/16 08/12/16 08/13/16 23:59 23:59 23:59 Intake Total 6563 7275 989 Output Total 852 790 395 Balance 5711 6485 594 General: Alert, Oriented x3 HEENT: EOMI (No icterus), Mucous membr. moist/pink Neck: Supple Neuro: Alert, CN 2-12 Grossly Intact, Oriented Times 3 Cardiovascular: Regular rate Respiratory: Breath sounds nml Abdomen: Soft (+Bs, soft, NT distended, no rebound or guarding) Extremities: Other (+B/L LE edema.B/L tenderness to palpation. Negative Homann's , No increased warmth or erythema.) - Results Results: Laboratory Results WBC 35.7 x10^3/uL (4.8-10.8) H* 08/13/16 04:55 RBC 2.98 10^6/uL (4.70-6.10) L 08/13/16 04:55 Hgb 9.1 g/dL (14.0-18.0) L 08/13/16 04:55 Hct 27.3 % (42.0-52.0) L 08/13/16 04:55 MCV 91.6 fL (80.0-94.0) 08/13/16 04:55 MCH 30.5 pg (27.0-31.0) 08/13/16 04:55 MCHC 33.3 g/dL (32.0-36.0) 08/13/16 04:55 RDW 14.0 % (12.0-15.0) 08/13/16 04:55 Plt Count 125 10^3/uL (130-450) L 08/13/16 04:55 MPV 9.4 fL (7.4-11.4) 08/13/16 04:55 Neut # Not Reportable 08/13/16 04:55 Lymph # Not Reportable 08/13/16 04:55 Bartholomew # Not Reportable 08/13/16 04:55 Eos # Not Reportable 08/13/16 04:55 Baso # Not Reportable 08/13/16 04:55 Absolute Nucleated RBC Not Reportable 08/13/16 04:55 Total Counted 100 08/13/16 04:55 Band Neuts % (Manual) 12 % (0-10) H 08/13/16 04:55 Reactive Lymphs % (Man) 1 % 08/12/16 04:35 Metamyelocytes % 1 % (-0) H 08/13/16 04:55 Neutrophils # (Manual) 31.1 10^3/uL (1.5-6.6) H 08/13/16 04:55 Lymphocytes # (Manual) 1.4 10^3/uL (1.5-3.5) L 08/13/16 04:55 Monocytes # (Manual) 2.9 10^3/uL (0.0-1.0) H 08/13/16 04:55 Nucleated RBCs Not Reportable 08/13/16 04:55 Differential Comment MANUAL DIFFERENTIAL 08/13/16 04:55 WBC Morphology 1+ VACUOLATION (NORMAL) 08/11/16 06:15 Platelet Estimate DECREASED (<130,000) (NORMAL) 08/13/16 04:55 Platelet Morphology 1+ LARGE PLATELETS (NORMAL) 08/13/16 04:55 RBC Morph Micro Appear 1+ ESTEBAN CELLS (NORMAL) 1+ TEARDROP CELLS (NORMAL) 1+ SCHISTOCYTES (NORMAL) 08/11/16 06:15 RBC Morph Micro Appear 1+ OVALOCYTES (NORMAL) 1+ SCHISTOCYTES (NORMAL) 2+ ESTEBAN CELLS (NORMAL) 08/12/16 04:35 RBC Morph Micro Appear 1+ OVALOCYTES (NORMAL) 1+ SCHISTOCYTES (NORMAL) 2+ ESTEBAN CELLS (NORMAL) 08/12/16 04:35 RBC Morph Micro Appear 1+ OVALOCYTES (NORMAL) 1+ SCHISTOCYTES (NORMAL) 2+ ESTEBAN CELLS (NORMAL) 08/12/16 04:35 RBC Morph Micro Appear 1+ POLYCHROMASIA (NORMAL) 08/13/16 04:55 PT 17.1 secs (9.9-12.6) H 08/11/16 11:40 INR 1.5 (0.8-1.2) H 08/11/16 11:40 APTT 36.7 secs (24.9-33.3) H 08/11/16 11:40 VBG pH 7.378 (7.31-7.41) 08/13/16 04:55 Ionized Calcium 1.23 mmol/L (1.15-1.33) 08/13/16 04:55 Sodium 138 mmol/L (135-145) 08/13/16 04:55 Potassium 3.5 mmol/L (3.5-5.0) 08/13/16 04:55 Chloride 112 mmol/L (101-111) H 08/13/16 04:55 Carbon Dioxide 20 mmol/L (21-32) L 08/13/16 04:55 Anion Gap 6.0 (6-13) 08/13/16 04:55 BUN 40 mg/dL (6-20) H 08/13/16 04:55 Creatinine 1.0 mg/dL (0.6-1.2) 08/13/16 04:55 Estimated GFR (MDRD) 74 (>89) L 08/13/16 04:55 Glucose 161 mg/dL (70-100) H 08/13/16 04:55 Lactic Acid 1.1 mmol/L (0.5-2.2) 08/12/16 04:35 Calcium 8.0 mg/dL (8.5-10.3) L 08/13/16 04:55 Ionized Calcium YES 08/13/16 04:55 Phosphorus 1.6 mg/dL (2.5-4.6) L 08/13/16 04:55 Magnesium 2.5 mg/dL (1.7-2.8) 08/13/16 04:55 Total Bilirubin 1.1 mg/dL (0.2-1.0) H 08/13/16 04:55 AST 61 IU/L (10-42) H 08/13/16 04:55 ALT 51 IU/L (10-60) 08/13/16 04:55 Alkaline Phosphatase 52 IU/L (42-121) 08/13/16 04:55 Troponin I 2.28 ng/mL (<0.49) H* 08/13/16 04:55 Total Protein 4.7 g/dL (6.7-8.2) L 08/13/16 04:55 Albumin 1.9 g/dL (3.2-5.5) L 08/13/16 04:55 Globulin 2.8 g/dL (2.1-4.2) 08/13/16 04:55 Albumin/Globulin Ratio 0.7 (1.0-2.2) L 08/13/16 04:55 Lipase 16 U/L (22-51) L 08/10/16 17:30 Prostate Specific Ag 4.824 ng/mL (0.000-2.000) H 08/12/16 09:45 Urine Color DK. ORANGE 08/10/16 18:00 Urine Clarity CLOUDY (CLEAR) 08/10/16 18:00 Urine pH 5.5 PH (5.0-7.5) 08/10/16 18:00 Ur Specific [place] >=1.030 (1.002-1.030) H 08/10/16 18:00 Urine Protein 100 mg/dL (NEGATIVE) H 08/10/16 18:00 Urine Glucose (UA) NEGATIVE mg/dL (NEGATIVE) 08/10/16 18:00 Urine Ketones TRACE mg/dL (NEGATIVE) 08/10/16 18:00 Urine Occult Blood LARGE (NEGATIVE) H 08/10/16 18:00 Urine Nitrite POSITIVE (NEGATIVE) H 08/10/16 18:00 Urine Bilirubin NEGATIVE (NEGATIVE) 08/10/16 18:00 Urine Urobilinogen 4 E.U./dL (NORMAL) H 08/10/16 18:00 Ur Leukocyte Esterase NEGATIVE (NEGATIVE) 08/10/16 18:00 Urine RBC None Seen /HPF (0-5) 08/10/16 18:00 Urine WBC 4-5 /HPF (0-3) 08/10/16 18:00 Ur Epithelial Cells RARE Renal Tubular /HPF (<= Few) 08/10/16 18:00 Ur Squamous Epith Cells FEW Squamous (<= Few) 08/10/16 18:00 Urine Bacteria Many /HPF (None Seen) H 08/10/16 18:00 Urine Casts 0-2 Granular Casts /LPF 08/10/16 18:00 Urine Mucus Marked Strands 08/10/16 18:00 Ur Microscopic Review INDICATED 08/10/16 18:00 Urine Culture Comments INDICATED 08/10/16 18:00 Last Dose Date UNK 08/13/16 08:35 Last Dose Time UNK 08/13/16 08:35 Vancomycin Trough 13.9 ug/mL (5.0-15.0) 08/13/16 08:35
[2016-08-13] MEDS ORDERED: diltiaZEM INJ 125 MG in DEXTROSE 5% 100 ML IV SCH (11:15)
[2016-08-13] MEDS: ONDANSETRON 4 MG/2 ML VIAL IVP PRN (11:53)
[2016-08-13 16:37] VITALS: BP 108/60
--- NOTE | 2016-08-13 18:41 | DISCHARGE SUMMARY ---
DATE OF ADMISSION: 08/10/2016 DATE OF DISCHARGE: 08/13/2016 DISCHARGE DIAGNOSES 1. Sepsis with acute organ dysfunction due to Staphylococcus aureus. 2. Mze-NO-ayiqppuil myocardial infarction. 3. New onset atrial fibrillation, persistent. 4. Neutropenic fever. 5. Healthcare-associated pneumonia. 6. Urinary tract infection with Staphylococcus aureus. 7. Hypokalemia. 8. Elevated liver function studies from shock liver. 9. Prostate cancer. 10. Hallucinations. MEDICATIONS: Medications during this stay had been 1. Tylenol p.r.n. 2. Aspirin 81 daily. 3. Diltiazem drip. 4. Benadryl IV p.r.n. prior to CT CONTRAST BECAUSE OF HIVES HISTORY. 5. Lovenox 40 subcutaneous daily. 6. Lopressor 5 mg IV q.4 hours p.r.n. fast heart rate. 7. Morphine 2 mg IV, 2 mg q.2 hours. 8. Levophed drip temporarily. 9. Zofran p.r.n. 10. Protonix 40 mg p.o. daily. 11. Zosyn 3.375 mg q.6 hours. 12. Ranitidine 150 mg IV b.i.d. prior to CT CONTRAST FOR HIVES. 13. Florastor 250 mg p.o. b.i.d. 14. Vancomycin 1 gram b.i.d. PRINCIPAL PROCEDURES 1. Blood cultures before Port-A-Cath removed growing staph aureus that is sensitive. 2. Catheter tip culture and catheter line, both growing staph aureus. 3. Blood cultures after catheter removed growing gram-positive cocci in clusters , presumptive staph aureus and identities and sensitivities pending at the time of this dictation. 4. Echocardiogram, August 10, showing intact left ventricle function with an ejection fraction of 55% to 60%, moderate increase in left atrial volume, moderate right atrial enlargement. No significant valvular heart disease and no vegetations. 5. Abdominal ultrasound done for elevated liver enzymes showing hepatomegaly. 6. Chest x-ray on admission showed small right lung base infiltrate, and subsequent x-rays done for removal of Port-A-Cath and insertion of line placement showing no real significant change with no increase in infiltrates. 7. Venous duplex study of left upper extremity with no evidence of DVT. 8. CT of abdomen and pelvis done for continued mild abdominal distention in an obtunded patient who was septic with elevated liver enzymes: lower lobe atelectasis, small bilateral effusions, a normal liver without masses, no hydronephrosis, and a small amount of free fluid in the pelvis. No abscess. No masses or adenopathy noted. He has a prostatectomy. 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 He was diagnosed with prostate cancer in August of 2015 and had hormone injections, prostatectomy in December 2015. He had recurrence of disease in May 2016 and is currently undergoing chemotherapy once every 3 weeks and Lupron injections every 3 months. Last chemotherapy was July 31. He is followed by Dr. Knapp at [facility]. He presented to the emergency room febrile, tachycardic to 140s, hypertensive and tachypneic and hypoxic and very, very lethargic. The describes him as a very, very lucid sharp gentleman and in the last few days, he has become increasingly lethargic with decreasing p.o. intake. Sleeping all the time. She thought initially it was just his response to chemotherapy and that eventually he would bounce back, but he never did. When he finally became so lethargic he was almost unresponsive, she called the ambulance, and he was brought to the hospital. He found to have severe sepsis and source workup was done including chest x-ray, urinalysis and blood cultures. He was treated for his pneumonia and a UTI. The pneumonia was felt to be healthcare-associated pneumonia, and the sepsis was felt to be severe enough that he had organ dysfunction. He was placed in Med/Surg status initially. Tachycardia continued in spite of aggressive fluid resuscitation and Zosyn and vancomycin. Obtundation and lethargy were severe and he was an essentially nonverbal patient who would mumble but not really say yes or no or have lucid speech. He felt to have a neutropenic fever with an ANC of 600. Blood cultures grew out staph aureus as did urine cultures and because of continued tachycardia and obtundation and my suspicion of now line sepsis with positive staph aureus cultures, I transferred him to ICU. In ICU, I had General Surgery Consult remove The Port-A-Cath. Dr. Colbert, emergency room physician, placed an IJ central line. Port-A-Cath Catheter tip and line have both grown out staph aureus. The morning after placement in ICU, the patient woke up. He was sitting up in bed, completely wiped out and exhausted, but his eyes were open, he greeted me appropriately, and speech and history were lucid. Even with that, patient was having hallucinations. Over the next 24 hours, white cell count continued to climb. It went from neutropenic to 35,000 on the day of discharge. Repeat blood cultures done after lines had already been removed for 24 hours and continued to show gram-positive cocci. He is still on diltiazem for atrial fibrillation. Because of the continued tachycardia and atrial fibrillation, we suspect either PE, thyroid or AK. Troponin showed a level of 7. Repeat troponin was 3.22 and today troponin is 2.28. He has had hypokalemia and other electrolyte disturbance supplemented in ICU. Liver function studies have gradually returned to normal, and we think that was just a mechanism of injury from sepsis. On the day of discharge, the patient continues to hallucinate. He was very circumspect and asked the nurse to leave the room, so he could speak to me privately. He then went on to describe his belief that Maciej Cancino, through a secret political alliance party, is trying to overtake and buy this hospital. He wanted me to know that Mr. Cancino had secretly employed nurses and staff members and hidden them among our own staff and last night that they had a alliance party in the ICU room next to him. Decorators came in and decorated the ICU, alcohol was involved and sexual congress was involved. The patient says he does not want to get anybody in trouble, but he just wants me to know, because he is very concerned about our hospital. He also feels that Mr. Cancino will secretly ruin his life if Mr. Cancino finds out that he shared any of this with me. I spoke to Dr. Cleveland on-call at [facility]. He has graciously accepted the patient in transfer for all of the above medical problems and still continued to need critical care services. We are a critical access hospital with no specialty followup and this patient needs to see Cardiology and Infectious Disease. Although echocardiogram is normal, if he continues to have gram-positive cocci in his blood, he may need a transesophageal echo. At the time of this dictation, bed has been found for him at [facility]. PHYSICAL EXAMINATION VITAL SIGNS: Temperature is 36.3, pulse is 90 and still in atrial fibrillation on diltiazem drip. Blood pressure is 98-119 systolic, respirations are 17. He is 88% to 92% on room air. GENERAL: He is awake, sitting up in bed. Acknowledges his hallucinations, mainly visual on the wall in front of him, but insists that the description of Mr. Cancino is not a hallucination and it is all true. LUNGS: He has coarse upper airway sounds, slow shallow unlabored respiration. HEART: PMI normally placed. ABDOMEN: The abdomen is still firm, slightly distended, but no rebound or guarding. Occasionally, he would have suprapubic tenderness, but not today. He has diffuse anasarca from fluid resuscitation and with the hypertension, I do not want to give him Lasix right now. I also do not want to resume his Levophed unless I have to. NEUROLOGIC: He is alert to person, place. Not time. He identifies me as his doctor that is taking care of him by name, and knows that this is [facility]. He can follow 1- or 2-step commands slowly, but there is some psychomotor slowing and with speech and thought process. No focal deficits. Greater than 30 minutes were spent in coordinating discharge. ADDENDUM: In the 30 minutes before ambulance transfer arrived, patient converted to NSR and diltiazem drip was stopped. JOB #: [id number] EXT JOB #:[id number] TODD
== END 2016-08-13 17:39 | disposition short-term general hospital (02) | DRG 280 ==
LOC: EDUNIT# → ED 17:16 → MS 21:03 → ICU 08-11 13:46
PROVIDERS: ADMIT Internal Medicine; ATTEND Specialist
PROC: 0JPT0XZ Removal of Tunneled Vascular Access Device from Trunk Subcutaneous Tissue and Fascia, Open Approach (ICD-10-PCS; principal; 2016-08-11)
PROC: 02HV33Z Insertion of Infusion Device into Superior Vena Cava, Percutaneous Approach (ICD-10-PCS; 2016-08-11)
DX: A41.9 Sepsis, unspecified organism (principal); J18.1 Lobar pneumonia, unspecified organism; T80.211A Bloodstream infection due to central venous catheter, initial encounter; A41.01 Sepsis due to Methicillin susceptible Staphylococcus aureus; I21.4 Non-ST elevation (NSTEMI) myocardial infarction; R65.20 Severe sepsis without septic shock; J18.9 Pneumonia, unspecified organism; K72.00 Acute and subacute hepatic failure without coma; I48.1 Persistent atrial fibrillation; N30.00 Acute cystitis without hematuria; D70.9 Neutropenia, unspecified; R50.81 Fever presenting with conditions classified elsewhere; R09.02 Hypoxemia; E87.6 Hypokalemia; C61 Malignant neoplasm of prostate; R44.1 Visual hallucinations; I10 Essential (primary) hypertension; I95.9 Hypotension, unspecified; Y95 Nosocomial condition; Z91.041 Radiographic dye allergy status; Z79.82 Long term (current) use of aspirin; Z95.828 Presence of other vascular implants and grafts; Z90.79 Acquired absence of other genital organ(s); Z79.899 Other long term (current) drug therapy; Z79.818 Long term (current) use of other agents affecting estrogen receptors and estrogen levels
CPT/HCPCS: 36415; 51702; 71010; 74177; 76705; 80053; 81001; 81003; 82330; 83605; 83690; 83735; 84100; 84153; 84484; 85025; 85610; 85730; 87040; 87071; 87077; 87086; 87150; 93005; 93306; 96361; 96365; 96367; 96375; 99284; 99285; 99291

== ENCOUNTER 2016-09-17 15:19 | Outpatient (CLI) | payer MEDICARE, OTHER ==
[2016-09-17 15:51] LABS: BASOPHILS # (AUTO) 0.1 10^3/uL (0.0-0.1); EOSINOPHILS # (AUTO) 0.3 10^3/uL (0.0-0.7); EOSINOPHILS % (AUTO) 3.1 %; HCT - HEMATOCRIT 34.3 % (42.0-52.0); HGB - HEMOGLOBIN 11.4 g/dL (14.0-18.0); LYMPHOCYTES % (AUTO) 10.1 %; MEAN CORPUSCULAR HEMOGLOBIN 31.7 pg (27.0-31.0); MEAN CORPUSCULAR HGB CONC 33.3 g/dL (32.0-36.0); MEAN CORPUSCULAR VOLUME 95.3 fL (80.0-94.0); MEAN PLATELET VOLUME 7.6 fL (7.4-11.4); MONOCYTES # (AUTO) 0.9 10^3/uL (0.0-1.0); MONOCYTES % (AUTO) 8.5 %; NEUTROPHILS # (AUTO) 7.8 10^3/uL (1.5-6.6); NEUTROPHILS % (AUTO) 77.3 %; NUCLEATED RED BLOOD CELLS AUTO 0.1 /100WBC; RED CELL DISTRIBUTION WIDTH 14.3 % (12.0-15.0); UNCORRECTED WHITE BLOOD COUNT 10.1 x10^3/uL; WHITE BLOOD COUNT 10.1 x10^3/uL (4.8-10.8)
[2016-09-17 16:07] LABS: ALBUMIN/GLOBULIN RATIO 0.9 (1.0-2.2); BILIRUBIN,TOTAL 0.6 mg/dL (0.2-1.0); BUN - BLOOD UREA NITROGEN 13 mg/dL (6-20); CALCIUM 9.6 mg/dL (8.5-10.3); CARBON DIOXIDE - CO2 25 mmol/L (21-32); CHLORIDE 102 mmol/L (101-111); CREATININE 0.8 mg/dL (0.6-1.2); GFR - MDRD 96 (>89); GLUCOSE 110 mg/dL (70-100); POTASSIUM 3.7 mmol/L (3.5-5.0); SODIUM 136 mmol/L (135-145); TOTAL PROTEIN 6.7 g/dL (6.7-8.2)
[2016-09-17 16:58] LABS: BILIRUBIN,URINE NEGATIVE (NEGATIVE); PH,URINE 5.5 PH (5.0-7.5)
[2016-09-17 17:07] LABS: UA CHARGE (STRIP ONLY) YES; UR CULTURE IF IND NOT INDICATED
== END 2016-09-17 15:20 | disposition home or self-care (01) ==
LOC: LAB 15:19
PROVIDERS: ATTEND Internal Medicine
DX: A41.9 Sepsis, unspecified organism (principal); Z79.899 Other long term (current) drug therapy; C61 Malignant neoplasm of prostate; I10 Essential (primary) hypertension
CPT/HCPCS: 36415; 80053; 81001; 81003; 83880; 84153; 85025; 85379; 85651; 86140; 87086

== ENCOUNTER 2016-09-18 19:55 | Outpatient (CLI) | payer MEDICARE, OTHER ==
--- NOTE | 2016-09-18 21:03 | Ultrasound Preliminary Report ---
Exam: US Duplex Ext Veins Bilateral IMPRESSION: No evidence for deep venous thrombosis bilaterally. [facility] SITE ID: [id number]
--- NOTE | 2016-09-18 21:05 | Ultrasound Report ---
EXAM: BILATERAL LOWER EXTREMITY VENOUS ULTRASOUND EXAM DATE: 09/18/2016 08:58 PM. CLINICAL HISTORY: SCHEDULED WITH MD OFFICE, NOT PRE REG (09/18/16 13. COMPARISON: None. TECHNIQUE: Real-time sonographic vascular imaging was performed by the generator technician through the lower extremities utilizing both color-flow and Doppler spectral analysis. Multiple field marketing representative static i mages were saved for review. FINDINGS: Right: Common Femoral Vein (CFV): Normal. CFV-GSV Junction: Normal. Profunda Femoral Vein (PFV): Normal. Femoral Vein (FV) Prox: Normal. Femoral Vein (FV) Mid: Normal. Femoral Vein (FV) Dist: Normal. Popliteal Vein: Normal. Posterior Tibial Veins: Normal. Peroneal Veins: Normal. Left: Common Femoral Vein (CFV): Normal. CFV-GSV Junction: Normal. Profunda Femoral Vein (PFV): Normal. Femoral Vein (FV) Prox: Normal. Femoral Vein (FV) Mid: Normal. Femoral Vein (FV) Dist: Normal. Popliteal Vein: Normal. Posterior Tibial Veins: Normal. Peroneal Veins: Normal. Other: None. IMPRESSION: No evidence for deep venous thrombosis bilaterally. [facility] Referring Provider Line: [phone] SITE ID: [id number]
== END 2016-09-18 19:56 | disposition home or self-care (01) ==
LOC: DI 19:55
PROVIDERS: ATTEND Internal Medicine
DX: R60.9 Edema, unspecified (principal)
CPT/HCPCS: 93970

== ENCOUNTER 2016-09-27 09:59 | Outpatient (CLI) | payer MEDICARE, OTHER ==
[2016-09-27 18:42] LABS: BASOPHILS # (AUTO) 0.1 10^3/uL (0.0-0.1); BASOPHILS % (AUTO) 0.9 %; EOSINOPHILS # (AUTO) 0.3 10^3/uL (0.0-0.7); EOSINOPHILS % (AUTO) 4.3 %; HCT - HEMATOCRIT 34.1 % (42.0-52.0); HGB - HEMOGLOBIN 11.4 g/dL (14.0-18.0); LYMPHOCYTES # (AUTO) 1.4 10^3/uL (1.5-3.5); LYMPHOCYTES % (AUTO) 17.9 %; MEAN CORPUSCULAR HEMOGLOBIN 32.3 pg (27.0-31.0); MEAN CORPUSCULAR HGB CONC 33.4 g/dL (32.0-36.0); MEAN CORPUSCULAR VOLUME 96.8 fL (80.0-94.0); MONOCYTES # (AUTO) 0.7 10^3/uL (0.0-1.0); MONOCYTES % (AUTO) 9.2 %; NEUTROPHILS # (AUTO) 5.2 10^3/uL (1.5-6.6); NEUTROPHILS % (AUTO) 67.7 %; NUCLEATED RED BLOOD CELLS AUTO 0.5 /100WBC; RED BLOOD COUNT 3.52 10^6/uL (4.70-6.10); RED CELL DISTRIBUTION WIDTH 13.3 % (12.0-15.0); UNCORRECTED WHITE BLOOD COUNT 7.7 x10^3/uL; WHITE BLOOD COUNT 7.7 x10^3/uL (4.8-10.8)
[2016-09-27 19:05] LABS: ALBUMIN/GLOBULIN RATIO 0.9 (1.0-2.2); BILIRUBIN,TOTAL 0.6 mg/dL (0.2-1.0); BUN - BLOOD UREA NITROGEN 17 mg/dL (6-20); CALCIUM 9.9 mg/dL (8.5-10.3); CARBON DIOXIDE - CO2 27 mmol/L (21-32); CHLORIDE 105 mmol/L (101-111); CREATININE 0.8 mg/dL (0.6-1.2); GFR - MDRD 96 (>89); GLUCOSE 103 mg/dL (70-100); POTASSIUM 4.1 mmol/L (3.5-5.0); SODIUM 139 mmol/L (135-145); TOTAL PROTEIN 6.8 g/dL (6.7-8.2)
== END 2016-09-27 10:00 | disposition home or self-care (01) ==
LOC: LAB.F 09:59
PROVIDERS: ATTEND Internal Medicine Infectious Disease
DX: B99.9 Unspecified infectious disease (principal)
CPT/HCPCS: 36415; 80053; 85025; 85651; 86140

== ENCOUNTER 2017-04-17 14:48 | Outpatient (CLI) | payer MEDICARE, OTHER ==
[2017-04-17 17:46] LABS: BASOPHILS % (AUTO) 0.5 %; EOSINOPHILS % (AUTO) 0.5 %; HGB - HEMOGLOBIN 13.1 g/dL (14.0-18.0); LYMPHOCYTES # (AUTO) 1.4 10^3/uL (1.5-3.5); LYMPHOCYTES % (AUTO) 16.4 %; MEAN CORPUSCULAR HEMOGLOBIN 32.9 pg (27.0-31.0); MEAN CORPUSCULAR HGB CONC 34.2 g/dL (32.0-36.0); MEAN CORPUSCULAR VOLUME 96.3 fL (80.0-94.0); MEAN PLATELET VOLUME 8.7 fL (7.4-11.4); MONOCYTES # (AUTO) 0.5 10^3/uL (0.0-1.0); MONOCYTES % (AUTO) 5.5 %; NEUTROPHILS # (AUTO) 6.6 10^3/uL (1.5-6.6); NEUTROPHILS % (AUTO) 77.1 %; PLT - PLATELET COUNT 224 10^3/uL (130-450); RED BLOOD COUNT 3.99 10^6/uL (4.70-6.10); RED CELL DISTRIBUTION WIDTH 12.3 % (12.0-15.0); WHITE BLOOD COUNT 8.6 x10^3/uL (4.8-10.8)
[2017-04-17 18:06] LABS: ALBUMIN 4.2 g/dL (3.2-5.5); ALBUMIN/GLOBULIN RATIO 1.6 (1.0-2.2); BILIRUBIN,TOTAL 1.2 mg/dL (0.2-1.0); CALCIUM 9.6 mg/dL (8.5-10.3); TOTAL PROTEIN 6.9 g/dL (6.7-8.2)
== END 2017-04-17 14:49 ==
LOC: LAB.F 14:48
PROVIDERS: ATTEND Internal Medicine Medical Oncology
DX: C61 Malignant neoplasm of prostate (principal)
CPT/HCPCS: 36415; 80053; 84153; 85025

== ENCOUNTER 2017-07-22 13:41 | Outpatient (CLI) | payer MEDICARE, OTHER ==
[2017-07-22 17:38] LABS: BASOPHILS % (AUTO) 0.2 %; EOSINOPHILS % (AUTO) 0.3 %; HGB - HEMOGLOBIN 12.8 g/dL (14.0-18.0); LYMPHOCYTES # (AUTO) 1.2 10^3/uL (1.5-3.5); LYMPHOCYTES % (AUTO) 14.9 %; MEAN CORPUSCULAR HEMOGLOBIN 32.2 pg (27.0-31.0); MEAN CORPUSCULAR HGB CONC 33.4 g/dL (32.0-36.0); MEAN CORPUSCULAR VOLUME 96.5 fL (80.0-94.0); MEAN PLATELET VOLUME 8.7 fL (7.4-11.4); MONOCYTES # (AUTO) 0.6 10^3/uL (0.0-1.0); MONOCYTES % (AUTO) 7.5 %; NEUTROPHILS # (AUTO) 6.4 10^3/uL (1.5-6.6); NEUTROPHILS % (AUTO) 77.1 %; PLT - PLATELET COUNT 219 10^3/uL (130-450); RED BLOOD COUNT 3.96 10^6/uL (4.70-6.10); RED CELL DISTRIBUTION WIDTH 12.4 % (12.0-15.0); WHITE BLOOD COUNT 8.3 x10^3/uL (4.8-10.8)
[2017-07-22 18:33] LABS: ALBUMIN 4.1 g/dL (3.2-5.5); ALBUMIN/GLOBULIN RATIO 1.9 (1.0-2.2); BILIRUBIN,TOTAL 1.7 mg/dL (0.2-1.0); CALCIUM 9.7 mg/dL (8.5-10.3); CREATININE 1.1 mg/dL (0.6-1.2); TOTAL PROTEIN 6.3 g/dL (6.7-8.2)
== END 2017-07-22 13:42 | disposition home or self-care (01) ==
LOC: LAB.F 13:41
PROVIDERS: ATTEND Internal Medicine Medical Oncology
DX: C61 Malignant neoplasm of prostate (principal)
CPT/HCPCS: 36415; 80053; 84153; 85025

== ENCOUNTER 2017-10-17 08:00 | Outpatient (CLI) | payer MEDICARE, OTHER ==
[2017-10-17 18:03] LABS: ALBUMIN 3.9 g/dL (3.2-5.5); ALBUMIN/GLOBULIN RATIO 1.7 (1.0-2.2); BILIRUBIN,TOTAL 1.6 mg/dL (0.2-1.0); CALCIUM 9.6 mg/dL (8.5-10.3); TOTAL PROTEIN 6.2 g/dL (6.7-8.2)
[2017-10-17 18:12] LABS: BASOPHILS # (AUTO) 0.1 10^3/uL (0.0-0.1); BASOPHILS % (AUTO) 0.7 %; EOSINOPHILS # (AUTO) 0.1 10^3/uL (0.0-0.7); EOSINOPHILS % (AUTO) 0.8 %; HGB - HEMOGLOBIN 12.9 g/dL (14.0-18.0); LYMPHOCYTES % (AUTO) 27.1 %; MEAN CORPUSCULAR HEMOGLOBIN 33.4 pg (27.0-31.0); MEAN CORPUSCULAR HGB CONC 33.7 g/dL (32.0-36.0); MEAN CORPUSCULAR VOLUME 99.2 fL (80.0-94.0); MEAN PLATELET VOLUME 8.8 fL (7.4-11.4); MONOCYTES # (AUTO) 0.7 10^3/uL (0.0-1.0); MONOCYTES % (AUTO) 9.5 %; NEUTROPHILS # (AUTO) 4.5 10^3/uL (1.5-6.6); NEUTROPHILS % (AUTO) 61.9 %; PLT - PLATELET COUNT 209 10^3/uL (130-450); RED BLOOD COUNT 3.87 10^6/uL (4.70-6.10); RED CELL DISTRIBUTION WIDTH 12.3 % (12.0-15.0); WHITE BLOOD COUNT 7.3 x10^3/uL (4.8-10.8)
== END 2017-10-17 08:01 | disposition home or self-care (01) ==
LOC: LAB.F 08:00
PROVIDERS: ATTEND Internal Medicine Medical Oncology
DX: C61 Malignant neoplasm of prostate (principal)
CPT/HCPCS: 36415; 80053; 84153; 85025

== ENCOUNTER 2018-01-16 13:30 | Outpatient (CLI) | payer MEDICARE, OTHER ==
[2018-01-16 17:26] LABS: BASOPHILS % (AUTO) 0.2 %; EOSINOPHILS # (AUTO) 0.1 10^3/uL (0.0-0.7); EOSINOPHILS % (AUTO) 0.7 %; HGB - HEMOGLOBIN 13.4 g/dL (14.0-18.0); LYMPHOCYTES # (AUTO) 1.4 10^3/uL (1.5-3.5); MEAN CORPUSCULAR HEMOGLOBIN 33.6 pg (27.0-31.0); MEAN CORPUSCULAR HGB CONC 34.4 g/dL (32.0-36.0); MEAN CORPUSCULAR VOLUME 97.6 fL (80.0-94.0); MEAN PLATELET VOLUME 8.6 fL (7.4-11.4); MONOCYTES # (AUTO) 0.8 10^3/uL (0.0-1.0); NEUTROPHILS # (AUTO) 6.1 10^3/uL (1.5-6.6); NEUTROPHILS % (AUTO) 72.1 %; PLT - PLATELET COUNT 219 10^3/uL (130-450); RED BLOOD COUNT 3.99 10^6/uL (4.70-6.10); WHITE BLOOD COUNT 8.5 x10^3/uL (4.8-10.8)
[2018-01-16 17:55] LABS: ALBUMIN 4.1 g/dL (3.2-5.5); ALBUMIN/GLOBULIN RATIO 1.7 (1.0-2.2); BILIRUBIN,TOTAL 1.9 mg/dL (0.2-1.0); CALCIUM 9.7 mg/dL (8.5-10.3); TOTAL PROTEIN 6.5 g/dL (6.7-8.2)
== END 2018-01-16 13:31 | disposition home or self-care (01) ==
LOC: LAB.F 13:30
PROVIDERS: ATTEND Internal Medicine Medical Oncology
DX: C61 Malignant neoplasm of prostate (principal)
CPT/HCPCS: 36415; 80053; 84153; 85025

== ENCOUNTER 2018-04-17 12:44 | Outpatient (CLI) | payer MEDICARE, OTHER ==
[2018-04-17 17:45] LABS: ALBUMIN 4.2 g/dL (3.2-5.5); ALBUMIN/GLOBULIN RATIO 1.8 (1.0-2.2); BASOPHILS % (AUTO) 0.4 %; BILIRUBIN,TOTAL 1.7 mg/dL (0.2-1.0); CALCIUM 9.3 mg/dL (8.5-10.3); CREATININE 0.9 mg/dL (0.6-1.2); EOSINOPHILS # (AUTO) 0.1 10^3/uL (0.0-0.7); EOSINOPHILS % (AUTO) 0.7 %; HGB - HEMOGLOBIN 13.4 g/dL (14.0-18.0); LYMPHOCYTES # (AUTO) 1.3 10^3/uL (1.5-3.5); LYMPHOCYTES % (AUTO) 13.5 %; MEAN CORPUSCULAR HEMOGLOBIN 32.4 pg (27.0-31.0); MEAN CORPUSCULAR HGB CONC 32.8 g/dL (32.0-36.0); MEAN CORPUSCULAR VOLUME 98.8 fL (80.0-94.0); MEAN PLATELET VOLUME 8.6 fL (7.4-11.4); MONOCYTES # (AUTO) 0.9 10^3/uL (0.0-1.0); MONOCYTES % (AUTO) 9.6 %; NEUTROPHILS # (AUTO) 7.5 10^3/uL (1.5-6.6); NEUTROPHILS % (AUTO) 75.8 %; PLT - PLATELET COUNT 227 10^3/uL (130-450); RED BLOOD COUNT 4.12 10^6/uL (4.70-6.10); RED CELL DISTRIBUTION WIDTH 12.7 % (12.0-15.0); TOTAL PROTEIN 6.6 g/dL (6.7-8.2); WHITE BLOOD COUNT 9.8 x10^3/uL (4.8-10.8)
== END 2018-04-17 12:45 | disposition home or self-care (01) ==
LOC: LAB.F 12:44
PROVIDERS: ATTEND Internal Medicine Medical Oncology
DX: C61 Malignant neoplasm of prostate (principal)
CPT/HCPCS: 36415; 80053; 84153; 85025

== ENCOUNTER 2018-07-16 11:02 | Outpatient (CLI) | payer MEDICARE, OTHER ==
[2018-07-16 17:16] LABS: BASOPHILS % (AUTO) 0.4 %; EOSINOPHILS # (AUTO) 0.1 10^3/uL (0.0-0.7); HGB - HEMOGLOBIN 12.9 g/dL (14.0-18.0); LYMPHOCYTES # (AUTO) 1.5 10^3/uL (1.5-3.5); LYMPHOCYTES % (AUTO) 17.4 %; MEAN CORPUSCULAR HGB CONC 32.8 g/dL (32.0-36.0); MEAN CORPUSCULAR VOLUME 97.5 fL (80.0-94.0); MEAN PLATELET VOLUME 8.9 fL (7.4-11.4); MONOCYTES # (AUTO) 0.8 10^3/uL (0.0-1.0); MONOCYTES % (AUTO) 10.1 %; NEUTROPHILS # (AUTO) 5.9 10^3/uL (1.5-6.6); NEUTROPHILS % (AUTO) 71.1 %; PLT - PLATELET COUNT 239 10^3/uL (130-450); RED BLOOD COUNT 4.02 10^6/uL (4.70-6.10); RED CELL DISTRIBUTION WIDTH 12.4 % (12.0-15.0); WHITE BLOOD COUNT 8.3 x10^3/uL (4.8-10.8)
[2018-07-16 17:25] LABS: ALBUMIN 3.6 g/dL (3.2-5.5); ALBUMIN/GLOBULIN RATIO 1.6 (1.0-2.2); BILIRUBIN,TOTAL 1.5 mg/dL (0.2-1.0); CALCIUM 9.1 mg/dL (8.5-10.3); CREATININE 0.8 mg/dL (0.6-1.2); TOTAL PROTEIN 5.9 g/dL (6.7-8.2)
== END 2018-07-16 11:03 | disposition home or self-care (01) ==
LOC: LAB.F 11:02
PROVIDERS: ATTEND Nurse Practitioner Family
DX: C61 Malignant neoplasm of prostate (principal)
CPT/HCPCS: 36415; 80053; 84153; 85025

== ENCOUNTER 2018-10-09 | Outpatient (CLI) | payer MEDICARE, OTHER | END 2018-10-09 11:03 | disposition home or self-care (01) | DX: C61 Malignant neoplasm of prostate (principal) | CPT/HCPCS: 36415; 80053; 84153; 85025 ==

== ENCOUNTER 2018-12-31 13:11 | Outpatient (CLI) | payer MEDICARE, OTHER ==
[2018-12-31 17:25] LABS: BASOPHILS % (AUTO) 0.3 %; EOSINOPHILS % (AUTO) 0.3 %; HGB - HEMOGLOBIN 12.3 g/dL (14.0-18.0); LYMPHOCYTES % (AUTO) 7.5 %; MEAN CORPUSCULAR HEMOGLOBIN 33.4 pg (27.0-31.0); MEAN CORPUSCULAR HGB CONC 33.1 g/dL (32.0-36.0); MEAN CORPUSCULAR VOLUME 101.1 fL (80.0-94.0); MEAN PLATELET VOLUME 10.6 fL (7.4-11.4); MONOCYTES # (AUTO) 0.7 10^3/uL (0.0-1.0); MONOCYTES % (AUTO) 5.3 %; NEUTROPHILS # (AUTO) 10.9 10^3/uL (1.5-6.6); NEUTROPHILS % (AUTO) 85.7 %; PLT - PLATELET COUNT 258 10^3/uL (130-450); RED BLOOD COUNT 3.68 10^6/uL (4.70-6.10); RED CELL DISTRIBUTION WIDTH 11.9 % (12.0-15.0); WHITE BLOOD COUNT 12.8 x10^3/uL (4.8-10.8)
[2018-12-31 17:43] LABS: ALBUMIN/GLOBULIN RATIO 1.6 (1.0-2.2); CALCIUM 9.5 mg/dL (8.5-10.3); TOTAL PROTEIN 6.5 g/dL (6.7-8.2)
== END 2018-12-31 13:12 | disposition home or self-care (01) ==
LOC: LAB.S 13:11
PROVIDERS: ATTEND Nurse Practitioner Family
DX: C61 Malignant neoplasm of prostate (principal)
CPT/HCPCS: 36415; 80053; 84153; 85025

== ENCOUNTER 2019-04-01 12:54 | Outpatient (CLI) | payer MEDICARE, OTHER ==
[2019-04-01 17:22] LABS: BASOPHILS # (AUTO) 0.1 10^3/uL (0.0-0.1); BASOPHILS % (AUTO) 0.6 %; EOSINOPHILS # (AUTO) 0.1 10^3/uL (0.0-0.7); EOSINOPHILS % (AUTO) 1.6 %; HGB - HEMOGLOBIN 12.4 g/dL (14.0-18.0); LYMPHOCYTES # (AUTO) 1.5 10^3/uL (1.5-3.5); LYMPHOCYTES % (AUTO) 19.6 %; MEAN CORPUSCULAR HGB CONC 31.8 g/dL (32.0-36.0); MEAN CORPUSCULAR VOLUME 97.5 fL (80.0-94.0); MEAN PLATELET VOLUME 10.8 fL (7.4-11.4); MONOCYTES # (AUTO) 0.8 10^3/uL (0.0-1.0); MONOCYTES % (AUTO) 9.8 %; NEUTROPHILS # (AUTO) 5.3 10^3/uL (1.5-6.6); PLT - PLATELET COUNT 282 10^3/uL (130-450); RED CELL DISTRIBUTION WIDTH 12.1 % (12.0-15.0); WHITE BLOOD COUNT 7.7 x10^3/uL (4.8-10.8)
[2019-04-01 18:16] LABS: ALBUMIN 4.1 g/dL (3.2-5.5); ALBUMIN/GLOBULIN RATIO 1.5 (1.0-2.2); BILIRUBIN,TOTAL 1.2 mg/dL (0.2-1.0); CALCIUM 9.5 mg/dL (8.5-10.3); CREATININE 0.8 mg/dL (0.6-1.2); TOTAL PROTEIN 6.8 g/dL (6.7-8.2)
== END 2019-04-01 12:55 | disposition home or self-care (01) ==
LOC: LAB.S 12:54
PROVIDERS: ATTEND Internal Medicine Hematology & Oncology
DX: C61 Malignant neoplasm of prostate (principal)
CPT/HCPCS: 36415; 80053; 81599; 84153; 84402; 84403; 85025

== ENCOUNTER 2019-06-30 10:56 | Outpatient (CLI) | payer MEDICARE, OTHER ==
[2019-06-30 11:12] LABS: BASOPHILS % (AUTO) 0.3 %; EOSINOPHILS # (AUTO) 0.1 10^3/uL (0.0-0.7); EOSINOPHILS % (AUTO) 1.4 %; HGB - HEMOGLOBIN 12.7 g/dL (14.0-18.0); LYMPHOCYTES # (AUTO) 1.4 10^3/uL (1.5-3.5); LYMPHOCYTES % (AUTO) 13.6 %; MEAN CORPUSCULAR HEMOGLOBIN 30.1 pg (27.0-31.0); MEAN CORPUSCULAR HGB CONC 31.6 g/dL (32.0-36.0); MEAN CORPUSCULAR VOLUME 95.3 fL (80.0-94.0); MEAN PLATELET VOLUME 9.3 fL (7.4-11.4); MONOCYTES # (AUTO) 0.8 10^3/uL (0.0-1.0); MONOCYTES % (AUTO) 7.3 %; NEUTROPHILS # (AUTO) 7.9 10^3/uL (1.5-6.6); PLT - PLATELET COUNT 260 10^3/uL (130-450); RED BLOOD COUNT 4.22 10^6/uL (4.70-6.10); RED CELL DISTRIBUTION WIDTH 11.8 % (12.0-15.0); WHITE BLOOD COUNT 10.3 x10^3/uL (4.8-10.8)
[2019-06-30 11:30] LABS: ALBUMIN 4.1 g/dL (3.2-5.5); ALBUMIN/GLOBULIN RATIO 1.6 (1.0-2.2); BILIRUBIN,TOTAL 1.2 mg/dL (0.2-1.0); CALCIUM 9.1 mg/dL (8.5-10.3); CREATININE 0.9 mg/dL (0.6-1.2); TOTAL PROTEIN 6.6 g/dL (6.7-8.2)
== END 2019-06-30 10:57 | disposition home or self-care (01) ==
LOC: LAB 10:56
PROVIDERS: ATTEND Nurse Practitioner Family
DX: C61 Malignant neoplasm of prostate (principal)
CPT/HCPCS: 36415; 80053; 81599; 84153; 84402; 84403; 85025

== ENCOUNTER 2019-09-24 09:53 | Outpatient (CLI) | payer MEDICARE, OTHER ==
[2019-09-24 15:23] LABS: BASOPHILS # (AUTO) 0.1 10^3/uL (0.0-0.1); BASOPHILS % (AUTO) 0.5 %; EOSINOPHILS # (AUTO) 0.2 10^3/uL (0.0-0.7); EOSINOPHILS % (AUTO) 2.2 %; HGB - HEMOGLOBIN 12.6 g/dL (14.0-18.0); LYMPHOCYTES # (AUTO) 1.3 10^3/uL (1.5-3.5); LYMPHOCYTES % (AUTO) 11.6 %; MEAN CORPUSCULAR HEMOGLOBIN 32.1 pg (27.0-31.0); MEAN CORPUSCULAR HGB CONC 32.6 g/dL (32.0-36.0); MEAN CORPUSCULAR VOLUME 98.5 fL (80.0-94.0); MEAN PLATELET VOLUME 10.4 fL (7.4-11.4); MONOCYTES # (AUTO) 0.8 10^3/uL (0.0-1.0); MONOCYTES % (AUTO) 6.9 %; NEUTROPHILS # (AUTO) 8.5 10^3/uL (1.5-6.6); NEUTROPHILS % (AUTO) 78.3 %; PLT - PLATELET COUNT 281 10^3/uL (130-450); RED BLOOD COUNT 3.92 10^6/uL (4.70-6.10); RED CELL DISTRIBUTION WIDTH 12.1 % (12.0-15.0); WHITE BLOOD COUNT 10.8 x10^3/uL (4.8-10.8)
[2019-09-24 15:47] LABS: ALBUMIN 4.1 g/dL (3.2-5.5); ALBUMIN/GLOBULIN RATIO 1.7 (1.0-2.2); BILIRUBIN,TOTAL 1.2 mg/dL (0.2-1.0); CALCIUM 9.1 mg/dL (8.5-10.3); CREATININE 0.9 mg/dL (0.6-1.2); TOTAL PROTEIN 6.5 g/dL (6.7-8.2)
== END 2019-09-24 09:54 | disposition home or self-care (01) ==
LOC: LAB.S 09:53
PROVIDERS: ATTEND Nurse Practitioner Family
DX: C61 Malignant neoplasm of prostate (principal)
CPT/HCPCS: 36415; 80053; 81599; 84153; 84402; 84403; 85025

== ENCOUNTER 2019-11-24 09:50 | Outpatient (CLI) | payer MEDICARE, OTHER ==
[2019-11-24 15:11] LABS: BASOPHILS # (AUTO) 0.1 10^3/uL (0.0-0.1); BASOPHILS % (AUTO) 0.6 %; EOSINOPHILS # (AUTO) 0.2 10^3/uL (0.0-0.7); EOSINOPHILS % (AUTO) 1.7 %; HGB - HEMOGLOBIN 12.8 g/dL (14.0-18.0); LYMPHOCYTES # (AUTO) 1.2 10^3/uL (1.5-3.5); LYMPHOCYTES % (AUTO) 11.3 %; MEAN CORPUSCULAR HEMOGLOBIN 32.1 pg (27.0-31.0); MEAN CORPUSCULAR HGB CONC 32.8 g/dL (32.0-36.0); MEAN CORPUSCULAR VOLUME 97.7 fL (80.0-94.0); MEAN PLATELET VOLUME 10.3 fL (7.4-11.4); MONOCYTES # (AUTO) 0.9 10^3/uL (0.0-1.0); MONOCYTES % (AUTO) 8.4 %; NEUTROPHILS # (AUTO) 8.4 10^3/uL (1.5-6.6); NEUTROPHILS % (AUTO) 77.5 %; PLT - PLATELET COUNT 316 10^3/uL (130-450); RED BLOOD COUNT 3.99 10^6/uL (4.70-6.10); RED CELL DISTRIBUTION WIDTH 11.7 % (12.0-15.0); WHITE BLOOD COUNT 10.8 x10^3/uL (4.8-10.8)
[2019-11-24 15:24] LABS: ALBUMIN 3.7 g/dL (3.2-5.5); ALBUMIN/GLOBULIN RATIO 1.3 (1.0-2.2); BILIRUBIN,TOTAL 1.2 mg/dL (0.2-1.0); CALCIUM 9.5 mg/dL (8.5-10.3); CREATININE 0.8 mg/dL (0.6-1.2); TOTAL PROTEIN 6.5 g/dL (6.7-8.2)
== END 2019-11-24 09:51 | disposition home or self-care (01) ==
LOC: LAB.S 09:50
PROVIDERS: ATTEND Nurse Practitioner Family
DX: C61 Malignant neoplasm of prostate (principal)
CPT/HCPCS: 36415; 80053; 81599; 82040; 84153; 84270; 84402; 84403; 85025

== ENCOUNTER 2019-12-22 11:11 | Outpatient (CLI) | payer MEDICARE, OTHER ==
[2019-12-22 15:10] LABS: BASOPHILS # (AUTO) 0.1 10^3/uL (0.0-0.1); BASOPHILS % (AUTO) 0.5 %; EOSINOPHILS # (AUTO) 0.1 10^3/uL (0.0-0.7); EOSINOPHILS % (AUTO) 1.1 %; HGB - HEMOGLOBIN 12.3 g/dL (14.0-18.0); LYMPHOCYTES # (AUTO) 1.4 10^3/uL (1.5-3.5); LYMPHOCYTES % (AUTO) 14.1 %; MEAN CORPUSCULAR HGB CONC 31.6 g/dL (32.0-36.0); MEAN PLATELET VOLUME 10.1 fL (7.4-11.4); MONOCYTES # (AUTO) 0.9 10^3/uL (0.0-1.0); NEUTROPHILS # (AUTO) 7.5 10^3/uL (1.5-6.6); NEUTROPHILS % (AUTO) 74.8 %; PLT - PLATELET COUNT 325 10^3/uL (130-450); RED BLOOD COUNT 3.97 10^6/uL (4.70-6.10); RED CELL DISTRIBUTION WIDTH 11.6 % (12.0-15.0); WHITE BLOOD COUNT 10.1 x10^3/uL (4.8-10.8)
[2019-12-22 17:04] LABS: ALBUMIN 3.8 g/dL (3.2-5.5); ALBUMIN/GLOBULIN RATIO 1.4 (1.0-2.2); BILIRUBIN,TOTAL 0.9 mg/dL (0.2-1.0); CALCIUM 9.4 mg/dL (8.5-10.3); CREATININE 0.8 mg/dL (0.6-1.2); TOTAL PROTEIN 6.5 g/dL (6.7-8.2)
== END 2019-12-22 11:12 | disposition home or self-care (01) ==
LOC: LAB.S 11:11
PROVIDERS: ATTEND Nurse Practitioner Family
DX: C61 Malignant neoplasm of prostate (principal)
CPT/HCPCS: 36415; 80053; 81599; 84153; 84402; 84403; 85025

== ENCOUNTER 2020-03-29 08:36 | Outpatient (CLI) | payer MEDICARE, OTHER ==
[2020-03-29 16:04] LABS: BASOPHILS % (AUTO) 0.3 %; EOSINOPHILS # (AUTO) 0.2 10^3/uL (0.0-0.7); EOSINOPHILS % (AUTO) 2.1 %; HGB - HEMOGLOBIN 11.5 g/dL (14.0-18.0); LYMPHOCYTES # (AUTO) 0.5 10^3/uL (1.5-3.5); LYMPHOCYTES % (AUTO) 5.4 %; MEAN CORPUSCULAR HEMOGLOBIN 32.1 pg (27.0-31.0); MEAN CORPUSCULAR HGB CONC 31.6 g/dL (32.0-36.0); MEAN CORPUSCULAR VOLUME 101.7 fL (80.0-94.0); MEAN PLATELET VOLUME 10.2 fL (7.4-11.4); MONOCYTES # (AUTO) 0.9 10^3/uL (0.0-1.0); MONOCYTES % (AUTO) 9.9 %; NEUTROPHILS # (AUTO) 7.3 10^3/uL (1.5-6.6); NEUTROPHILS % (AUTO) 81.8 %; PLT - PLATELET COUNT 361 10^3/uL (130-450); RED BLOOD COUNT 3.58 10^6/uL (4.70-6.10); RED CELL DISTRIBUTION WIDTH 11.7 % (12.0-15.0); WHITE BLOOD COUNT 8.9 x10^3/uL (4.8-10.8)
[2020-03-29 16:25] LABS: ALBUMIN 3.5 g/dL (3.2-5.5); ALBUMIN/GLOBULIN RATIO 1.4 (1.0-2.2); BILIRUBIN,TOTAL 0.9 mg/dL (0.2-1.0); CALCIUM 8.9 mg/dL (8.5-10.3); CREATININE 0.9 mg/dL (0.6-1.2)
== END 2020-03-29 08:37 | disposition home or self-care (01) ==
LOC: LAB.S 08:36
PROVIDERS: ATTEND Nurse Practitioner Family
DX: C61 Malignant neoplasm of prostate (principal)
CPT/HCPCS: 36415; 80053; 81599; 84153; 84402; 84403; 85025

== ENCOUNTER 2020-06-28 09:29 | Outpatient (CLI) | payer MEDICARE, OTHER ==
[2020-06-28 14:12] LABS: BASOPHILS % (AUTO) 0.6 %; EOSINOPHILS # (AUTO) 0.2 10^3/uL (0.0-0.7); EOSINOPHILS % (AUTO) 2.7 %; HCT - HEMATOCRIT 36.4 % (42.0-52.0); HGB - HEMOGLOBIN 11.3 g/dL (14.0-18.0); LYMPHOCYTES # (AUTO) 0.5 10^3/uL (1.5-3.5); LYMPHOCYTES % (AUTO) 7.5 %; MEAN CORPUSCULAR VOLUME 99.7 fL (80.0-94.0); MEAN PLATELET VOLUME 11.4 fL (7.4-11.4); MONOCYTES # (AUTO) 0.8 10^3/uL (0.0-1.0); MONOCYTES % (AUTO) 10.8 %; NEUTROPHILS # (AUTO) 5.6 10^3/uL (1.5-6.6); PLT - PLATELET COUNT 355 10^3/uL (130-450); RED BLOOD COUNT 3.65 10^6/uL (4.70-6.10); RED CELL DISTRIBUTION WIDTH 12.2 % (12.0-15.0); WHITE BLOOD COUNT 7.2 x10^3/uL (4.8-10.8)
[2020-06-28 15:15] LABS: ALBUMIN 3.4 g/dL (3.2-5.5); ALBUMIN/GLOBULIN RATIO 1.3 (1.0-2.2); BILIRUBIN,TOTAL 1.1 mg/dL (0.2-1.0); CREATININE 0.8 mg/dL (0.6-1.2); POTASSIUM 3.7 mmol/L (3.5-5.0)
== END 2020-06-28 09:30 | disposition home or self-care (01) ==
LOC: LAB.S 09:29
PROVIDERS: ATTEND Nurse Practitioner Family
DX: C61 Malignant neoplasm of prostate (principal)
CPT/HCPCS: 36415; 80053; 81599; 84153; 84402; 84403; 85025

== ENCOUNTER 2020-09-20 09:36 | Outpatient (CLI) | payer MEDICARE, OTHER ==
[2020-09-20 14:47] LABS: BASOPHILS % (AUTO) 0.6 %; EOSINOPHILS # (AUTO) 0.2 10^3/uL (0.0-0.7); EOSINOPHILS % (AUTO) 2.9 %; HCT - HEMATOCRIT 37.9 % (42.0-52.0); HGB - HEMOGLOBIN 11.9 g/dL (14.0-18.0); LYMPHOCYTES # (AUTO) 0.5 10^3/uL (1.5-3.5); LYMPHOCYTES % (AUTO) 7.4 %; MEAN CORPUSCULAR HGB CONC 31.4 g/dL (32.0-36.0); MEAN CORPUSCULAR VOLUME 101.9 fL (80.0-94.0); MEAN PLATELET VOLUME 10.4 fL (7.4-11.4); MONOCYTES # (AUTO) 0.7 10^3/uL (0.0-1.0); MONOCYTES % (AUTO) 10.4 %; NEUTROPHILS # (AUTO) 5.6 10^3/uL (1.5-6.6); NEUTROPHILS % (AUTO) 78.4 %; PLT - PLATELET COUNT 323 10^3/uL (130-450); RED BLOOD COUNT 3.72 10^6/uL (4.70-6.10); RED CELL DISTRIBUTION WIDTH 12.4 % (12.0-15.0); WHITE BLOOD COUNT 7.1 x10^3/uL (4.8-10.8)
[2020-09-20 14:58] LABS: ALBUMIN 3.4 g/dL (3.2-5.5); ALBUMIN/GLOBULIN RATIO 1.4 (1.0-2.2); CALCIUM 8.4 mg/dL (8.5-10.3); CREATININE 0.9 mg/dL (0.6-1.2); POTASSIUM 4.1 mmol/L (3.5-5.0); TOTAL PROTEIN 5.9 g/dL (6.7-8.2)
== END 2020-09-20 09:37 | disposition home or self-care (01) ==
LOC: LAB.S 09:36
PROVIDERS: ATTEND Nurse Practitioner Family
DX: C61 Malignant neoplasm of prostate (principal)
CPT/HCPCS: 36415; 80053; 81599; 84153; 84402; 84403; 85025

== ENCOUNTER 2020-12-27 09:54 | Outpatient (CLI) | payer MEDICARE, OTHER ==
[2020-12-27 15:12] LABS: BASOPHILS % (AUTO) 0.5 %; EOSINOPHILS # (AUTO) 0.2 10^3/uL (0.0-0.7); EOSINOPHILS % (AUTO) 2.1 %; HCT - HEMATOCRIT 38.4 % (42.0-52.0); HGB - HEMOGLOBIN 12.2 g/dL (14.0-18.0); LYMPHOCYTES # (AUTO) 0.5 10^3/uL (1.5-3.5); LYMPHOCYTES % (AUTO) 6.3 %; MEAN CORPUSCULAR HEMOGLOBIN 32.3 pg (27.0-31.0); MEAN CORPUSCULAR HGB CONC 31.8 g/dL (32.0-36.0); MEAN CORPUSCULAR VOLUME 101.6 fL (80.0-94.0); MEAN PLATELET VOLUME 10.2 fL (7.4-11.4); MONOCYTES # (AUTO) 0.7 10^3/uL (0.0-1.0); MONOCYTES % (AUTO) 8.3 %; NEUTROPHILS # (AUTO) 7.1 10^3/uL (1.5-6.6); NEUTROPHILS % (AUTO) 82.3 %; PLT - PLATELET COUNT 345 10^3/uL (130-450); RED BLOOD COUNT 3.78 10^6/uL (4.70-6.10); RED CELL DISTRIBUTION WIDTH 12.2 % (12.0-15.0); WHITE BLOOD COUNT 8.6 x10^3/uL (4.8-10.8)
[2020-12-27 15:43] LABS: ALBUMIN 3.6 g/dL (3.2-5.5); ALBUMIN/GLOBULIN RATIO 1.3 (1.0-2.2); BILIRUBIN,TOTAL 0.7 mg/dL (0.2-1.0); CALCIUM 9.2 mg/dL (8.5-10.3); CREATININE 0.8 mg/dL (0.6-1.2); POTASSIUM 4.1 mmol/L (3.5-5.0); TOTAL PROTEIN 6.3 g/dL (6.7-8.2)
== END 2020-12-27 09:55 | disposition home or self-care (01) ==
LOC: LAB.S 09:54
PROVIDERS: ATTEND Nurse Practitioner Family
DX: C61 Malignant neoplasm of prostate (principal)
CPT/HCPCS: 36415; 80053; 81599; 84153; 84402; 84403; 85025

== ENCOUNTER 2021-01-26 09:50 | Outpatient (CLI) | payer MEDICARE, OTHER | END 2021-01-26 09:51 | disposition home or self-care (01) | LOC: LAB.S 09:50 | PROVIDERS: ATTEND Nurse Practitioner Family | DX: C61 Malignant neoplasm of prostate (principal) | CPT/HCPCS: 36415; 84153 ==

== ENCOUNTER 2021-03-30 09:01 | Outpatient (CLI) | payer MEDICARE, OTHER ==
[2021-03-30 14:54] LABS: BASOPHILS % (AUTO) 0.6 %; EOSINOPHILS # (AUTO) 0.3 10^3/uL (0.0-0.7); EOSINOPHILS % (AUTO) 4.3 %; HCT - HEMATOCRIT 38.1 % (42.0-52.0); HGB - HEMOGLOBIN 12.2 g/dL (14.0-18.0); LYMPHOCYTES # (AUTO) 0.7 10^3/uL (1.5-3.5); LYMPHOCYTES % (AUTO) 9.4 %; MEAN CORPUSCULAR HEMOGLOBIN 31.7 pg (27.0-31.0); MEAN PLATELET VOLUME 10.5 fL (7.4-11.4); MONOCYTES # (AUTO) 0.5 10^3/uL (0.0-1.0); MONOCYTES % (AUTO) 7.5 %; NEUTROPHILS # (AUTO) 5.6 10^3/uL (1.5-6.6); NEUTROPHILS % (AUTO) 77.9 %; PLT - PLATELET COUNT 283 10^3/uL (130-450); RED BLOOD COUNT 3.85 10^6/uL (4.70-6.10); RED CELL DISTRIBUTION WIDTH 11.8 % (12.0-15.0); WHITE BLOOD COUNT 7.2 x10^3/uL (4.8-10.8)
[2021-03-30 15:36] LABS: ALBUMIN 3.4 g/dL (3.2-5.5); ALBUMIN/GLOBULIN RATIO 1.2 (1.0-2.2); BILIRUBIN,TOTAL 0.9 mg/dL (0.2-1.0); CREATININE 0.8 mg/dL (0.6-1.2); POTASSIUM 4.2 mmol/L (3.5-5.0); TOTAL PROTEIN 6.2 g/dL (6.7-8.2)
== END 2021-03-30 09:02 | disposition home or self-care (01) ==
LOC: LAB.S 09:01
PROVIDERS: ATTEND Internal Medicine Medical Oncology
DX: C61 Malignant neoplasm of prostate (principal); Z19.1 Hormone sensitive malignancy status
CPT/HCPCS: 36415; 80053; 84153; 85025

== ENCOUNTER 2021-07-05 07:22 | Outpatient (CLI) | payer MEDICARE, OTHER ==
[2021-07-05 15:05] LABS: BASOPHILS % (AUTO) 0.5 %; EOSINOPHILS # (AUTO) 0.4 10^3/uL (0.0-0.7); EOSINOPHILS % (AUTO) 4.9 %; HCT - HEMATOCRIT 37.1 % (42.0-52.0); HGB - HEMOGLOBIN 11.9 g/dL (14.0-18.0); LYMPHOCYTES # (AUTO) 0.6 10^3/uL (1.5-3.5); LYMPHOCYTES % (AUTO) 6.9 %; MEAN CORPUSCULAR HEMOGLOBIN 31.9 pg (27.0-31.0); MEAN CORPUSCULAR HGB CONC 32.1 g/dL (32.0-36.0); MEAN CORPUSCULAR VOLUME 99.5 fL (80.0-94.0); MEAN PLATELET VOLUME 10.1 fL (7.4-11.4); MONOCYTES # (AUTO) 0.8 10^3/uL (0.0-1.0); MONOCYTES % (AUTO) 8.7 %; NEUTROPHILS # (AUTO) 6.9 10^3/uL (1.5-6.6); NEUTROPHILS % (AUTO) 78.7 %; PLT - PLATELET COUNT 283 10^3/uL (130-450); RED BLOOD COUNT 3.73 10^6/uL (4.70-6.10); WHITE BLOOD COUNT 8.7 x10^3/uL (4.8-10.8)
[2021-07-05 16:00] LABS: ALBUMIN 3.1 g/dL (3.2-5.5); ALBUMIN/GLOBULIN RATIO 1.6 (1.0-2.2); BILIRUBIN,TOTAL 0.7 mg/dL (0.2-1.0); CALCIUM 8.8 mg/dL (8.5-10.3); CREATININE 0.9 mg/dL (0.6-1.2); POTASSIUM 4.1 mmol/L (3.5-5.0); TOTAL PROTEIN 5.1 g/dL (6.7-8.2)
== END 2021-07-05 07:23 | disposition home or self-care (01) ==
LOC: LAB.S 07:22
PROVIDERS: ATTEND Nurse Practitioner Family
DX: C61 Malignant neoplasm of prostate (principal)
CPT/HCPCS: 36415; 80053; 81599; 84153; 84402; 84403; 85025

== ENCOUNTER 2021-10-02 07:32 | Outpatient (CLI) | payer MEDICARE, OTHER ==
[2021-10-02 14:38] LABS: BASOPHILS % (AUTO) 0.4 %; EOSINOPHILS # (AUTO) 0.4 10^3/uL (0.0-0.7); EOSINOPHILS % (AUTO) 4.6 %; HCT - HEMATOCRIT 35.3 % (42.0-52.0); LYMPHOCYTES # (AUTO) 0.6 10^3/uL (1.5-3.5); LYMPHOCYTES % (AUTO) 8.2 %; MEAN CORPUSCULAR HEMOGLOBIN 31.4 pg (27.0-31.0); MEAN CORPUSCULAR HGB CONC 31.2 g/dL (32.0-36.0); MEAN CORPUSCULAR VOLUME 100.9 fL (80.0-94.0); MEAN PLATELET VOLUME 10.2 fL (7.4-11.4); MONOCYTES # (AUTO) 0.7 10^3/uL (0.0-1.0); MONOCYTES % (AUTO) 9.5 %; NEUTROPHILS # (AUTO) 5.8 10^3/uL (1.5-6.6); NEUTROPHILS % (AUTO) 76.8 %; PLT - PLATELET COUNT 307 10^3/uL (130-450); RED CELL DISTRIBUTION WIDTH 12.4 % (12.0-15.0); WHITE BLOOD COUNT 7.5 x10^3/uL (4.8-10.8)
[2021-10-02 15:21] LABS: ALBUMIN 3.3 g/dL (3.2-5.5); ALBUMIN/GLOBULIN RATIO 1.4 (1.0-2.2); BILIRUBIN,TOTAL 0.8 mg/dL (0.2-1.0); CALCIUM 8.9 mg/dL (8.5-10.3); CREATININE 0.8 mg/dL (0.6-1.2); POTASSIUM 4.2 mmol/L (3.5-5.0); TOTAL PROTEIN 5.6 g/dL (6.7-8.2)
[2021-10-03 17:08] LABS: FREE TESTOSTERONE(DIRECT) 0.4 pg/mL (6.6-18.1); TESTOSTERONE <3 ng/dL (264-916)
== END 2021-10-02 07:33 | disposition home or self-care (01) ==
LOC: LAB.S 07:32
PROVIDERS: ATTEND Nurse Practitioner Family
DX: C61 Malignant neoplasm of prostate (principal)
CPT/HCPCS: 36415; 80053; 84153; 84402; 84403; 85025

== ENCOUNTER 2022-01-09 09:11 | Outpatient (CLI) | payer MEDICARE, OTHER ==
[2022-01-09 14:13] LABS: BASOPHILS % (AUTO) 0.4 %; EOSINOPHILS # (AUTO) 0.2 10^3/uL (0.0-0.7); EOSINOPHILS % (AUTO) 2.4 %; HCT - HEMATOCRIT 36.5 % (42.0-52.0); HGB - HEMOGLOBIN 11.2 g/dL (14.0-18.0); LYMPHOCYTES # (AUTO) 0.7 10^3/uL (1.5-3.5); LYMPHOCYTES % (AUTO) 7.5 %; MEAN CORPUSCULAR HEMOGLOBIN 30.8 pg (27.0-31.0); MEAN CORPUSCULAR HGB CONC 30.7 g/dL (32.0-36.0); MEAN CORPUSCULAR VOLUME 100.3 fL (80.0-94.0); MEAN PLATELET VOLUME 10.2 fL (7.4-11.4); MONOCYTES # (AUTO) 0.9 10^3/uL (0.0-1.0); MONOCYTES % (AUTO) 9.8 %; NEUTROPHILS # (AUTO) 7.3 10^3/uL (1.5-6.6); NEUTROPHILS % (AUTO) 79.4 %; PLT - PLATELET COUNT 338 10^3/uL (130-450); RED BLOOD COUNT 3.64 10^6/uL (4.70-6.10); RED CELL DISTRIBUTION WIDTH 12.5 % (12.0-15.0); WHITE BLOOD COUNT 9.2 x10^3/uL (4.8-10.8)
[2022-01-09 14:35] LABS: ALBUMIN 3.3 g/dL (3.2-5.5); ALBUMIN/GLOBULIN RATIO 1.3 (1.0-2.2); BILIRUBIN,TOTAL 0.7 mg/dL (0.2-1.0); CALCIUM 9.2 mg/dL (8.5-10.3); CREATININE 0.8 mg/dL (0.6-1.2); TOTAL PROTEIN 5.8 g/dL (6.7-8.2)
[2022-01-10 17:08] LABS: FREE TESTOSTERONE(DIRECT) 0.4 pg/mL (6.6-18.1)
== END 2022-01-09 09:12 | disposition home or self-care (01) ==
LOC: LAB.S 09:11
PROVIDERS: ATTEND Internal Medicine Medical Oncology
DX: C61 Malignant neoplasm of prostate (principal); Z19.1 Hormone sensitive malignancy status
CPT/HCPCS: 36415; 80053; 84153; 84402; 84403; 85025

== ENCOUNTER 2022-04-10 10:45 | Outpatient (CLI) | payer MEDICARE, OTHER ==
[2022-04-10 11:00] LABS: BASOPHILS % (AUTO) 0.3 %; EOSINOPHILS % (AUTO) 0.2 %; HCT - HEMATOCRIT 36.8 % (42.0-52.0); HGB - HEMOGLOBIN 11.3 g/dL (14.0-18.0); LYMPHOCYTES # (AUTO) 0.5 10^3/uL (1.5-3.5); LYMPHOCYTES % (AUTO) 4.9 %; MEAN CORPUSCULAR HEMOGLOBIN 30.1 pg (27.0-31.0); MEAN CORPUSCULAR HGB CONC 30.7 g/dL (32.0-36.0); MEAN CORPUSCULAR VOLUME 98.1 fL (80.0-94.0); MEAN PLATELET VOLUME 9.1 fL (7.4-11.4); MONOCYTES # (AUTO) 0.9 10^3/uL (0.0-1.0); MONOCYTES % (AUTO) 8.5 %; NEUTROPHILS # (AUTO) 8.6 10^3/uL (1.5-6.6); NEUTROPHILS % (AUTO) 85.2 %; PLT - PLATELET COUNT 355 10^3/uL (130-450); RED BLOOD COUNT 3.75 10^6/uL (4.70-6.10); RED CELL DISTRIBUTION WIDTH 12.5 % (12.0-15.0); WHITE BLOOD COUNT 10.1 x10^3/uL (4.8-10.8)
[2022-04-10 11:10] LABS: ALBUMIN 3.3 g/dL (3.2-5.5); ALBUMIN/GLOBULIN RATIO 1.2 (1.0-2.2); BILIRUBIN,TOTAL 0.9 mg/dL (0.2-1.0); CREATININE 0.9 mg/dL (0.6-1.2); POTASSIUM 4.1 mmol/L (3.5-5.0)
[2022-04-11 18:08] LABS: FREE TESTOSTERONE(DIRECT) 0.9 pg/mL (6.6-18.1)
== END 2022-04-10 10:46 | disposition home or self-care (01) ==
LOC: LAB 10:45
PROVIDERS: ATTEND Internal Medicine Medical Oncology
DX: C61 Malignant neoplasm of prostate (principal); Z19.1 Hormone sensitive malignancy status
CPT/HCPCS: 36415; 80053; 84153; 84402; 84403; 85025

== ENCOUNTER 2023-01-21 16:38 | Emergency (ER) | payer MEDICARE, OTHER ==
[2023-01-21 18:00] LABS: BASOPHILS % (AUTO) 0.5 %; EOSINOPHILS # (AUTO) 0.1 10^3/uL (0.0-0.7); EOSINOPHILS % (AUTO) 1.2 %; HCT - HEMATOCRIT 36.4 % (42.0-52.0); HGB - HEMOGLOBIN 11.5 g/dL (14.0-18.0); LYMPHOCYTES # (AUTO) 0.7 10^3/uL (1.5-3.5); LYMPHOCYTES % (AUTO) 9.6 %; MEAN CORPUSCULAR HEMOGLOBIN 30.7 pg (27.0-31.0); MEAN CORPUSCULAR HGB CONC 31.6 g/dL (32.0-36.0); MEAN CORPUSCULAR VOLUME 97.3 fL (80.0-94.0); MEAN PLATELET VOLUME 8.9 fL (7.4-11.4); MONOCYTES % (AUTO) 13.3 %; NEUTROPHILS # (AUTO) 5.7 10^3/uL (1.5-6.6); NEUTROPHILS % (AUTO) 74.7 %; PLT - PLATELET COUNT 284 10^3/uL (130-450); RED BLOOD COUNT 3.74 10^6/uL (4.70-6.10); RED CELL DISTRIBUTION WIDTH 12.5 % (12.0-15.0); WHITE BLOOD COUNT 7.6 x10^3/uL (4.8-10.8)
[2023-01-21 18:16] LABS: ALBUMIN 3.1 g/dL (3.2-5.5); ALBUMIN/GLOBULIN RATIO 1.5 (1.0-2.2); BILIRUBIN,TOTAL 0.4 mg/dL (0.2-1.0); CALCIUM 8.6 mg/dL (8.5-10.3); CREATININE 0.9 mg/dL (0.6-1.3); POTASSIUM 3.8 mmol/L (3.5-4.5); TOTAL PROTEIN 5.2 g/dL (6.4-8.9)
[2023-01-21 18:29] LABS: BILIRUBIN,URINE NEGATIVE (NEGATIVE); GLUCOSE, URINE (UA) NEGATIVE (NEGATIVE); KETONES,URINE (UA) NEGATIVE (NEGATIVE); LEUKOCYTE ESTERASE, URINE NEGATIVE (NEGATIVE); NITRITE,URINE NEGATIVE (NEGATIVE); OCCULT BLOOD,URINE NEGATIVE (NEGATIVE); PROTEIN,URINE NEGATIVE (NEGATIVE); UROBILINOGEN,URINE 4 E.U./dL (NORMAL)
[2023-01-21 18:33] LABS: CLARITY,URINE CLEAR (CLEAR)
--- NOTE | 2023-01-21 19:21 | ED Physician Documentation ---
PD HPI ABD PAIN - Stated complaint Stated Complaint: ABD PX/NAUSEA/GI/HBP - Chief complaint Chief Complaint: Abd Pain - History obtained from History obtained from: Patient - Additional information Additional information: HPI from patient. Patient says he feels constipated. Has not had BM in several days. He had same problem last week, called his GI and was told to take laxative (dulcolax), with good results. However, again experienced feeling constipated over past few days, took two doses dulcolax without results. C/o generalized abdominal cramping that waxes and wanes without exacerbating/ameliorating factors. He says he has been passing a lot of gas from below. No n/v. Denies fever. Abdominal/pelvic surgical history of prostatectomty, hemmorhoidectomy. Allergies include fleet's enema (insists he has unrelenting diarrhea, vomiting), and IV contrast (hives) Review of Systems Constitutional: denies: Fever, Chills, Sweats Cardiac: reports: Reviewed and negative Respiratory: reports: Reviewed and negative GI: reports: Abdominal Pain, Abdominal Swelling, Constipation. denies: Nausea, Vomiting, Diarrhea, Hematemesis, Bloody / black stool PD PAST MEDICAL HISTORY - Past Medical History Cardiovascular: Hypertension Respiratory: None Endocrine/Autoimmune: None GI: Hemorrhoids : Other HEENT: Chronic vision loss Psych: None Musculoskeletal: None Derm: None - Past Surgical History Past Surgical History: Yes - Present Medications Home Medications: Ambulatory Orders Medication Instructions Recorded Confirmed Lisinopril [Zestril] 40 mg PO BID 01/21/23 01/21/23 Metoprolol Succinate 100 mg PO BID 01/21/23 01/21/23 - Allergies Allergies/Adverse Reactions: Allergies Allergy/AdvReac Type Severity Reaction Status Date / Time Iodinated Contrast Media Allergy Respiratory Verified 08/10/16 17:30 [Iodinated Contrast Media - Oral and] iodine Allergy Respiratory Verified 08/10/16 17:30 - Social History Does the pt smoke?: No Smoking Status: Never smoker Does the pt have substance abuse?: No - POLST Patient has POLST: No POLST Status: Full Code PD ED PE NORMAL - Vitals Vital signs reviewed: Yes - General General: Alert and oriented X 3, No acute distress, Well developed/nourished - Cardiac Cardiac: RRR, No murmur - Respiratory Respiratory: No respiratory distress, Clear bilaterally - Abdomen Abdomen: Soft, Non tender, Non distended, Other (decreased/infrequent bowel sounds) Results - Vitals Vitals: Oxygen O2 Source Room air - Labs Labs: Laboratory Tests 01/21/23 01/21/23 01/21/23 17:49 17:49 18:21 WBC 7.6 RBC 3.74 L Hgb 11.5 L Hct 36.4 L MCV 97.3 H MCH 30.7 MCHC 31.6 L RDW 12.5 Plt Count 284 MPV 8.9 Neut # (Auto) 5.7 Lymph # (Auto) 0.7 L Barry # (Auto) 1.0 Eos # (Auto) 0.1 Baso # (Auto) 0.0 Absolute Nucleated RBC 0.00 Nucleated RBC % 0.0 Sodium 138 Potassium 3.8 Chloride 105 Carbon Dioxide 30 Anion Gap 3.0 L BUN 20 Creatinine 0.9 Estimated GFR (MDRD) 82 L Glucose 108 H Calcium 8.6 Total Bilirubin 0.4 AST 13 ALT 7 L Alkaline Phosphatase 53 Total Protein 5.2 L Albumin 3.1 L Globulin 2.1 Albumin/Globulin Ratio 1.5 Lipase 40 Urine Color YELLOW Urine Clarity CLEAR Urine pH 6.0 Ur Specific Rosebud 1.025 Urine Protein NEGATIVE Urine Glucose (UA) NEGATIVE Urine Ketones NEGATIVE Urine Occult Blood NEGATIVE Urine Nitrite NEGATIVE Urine Bilirubin NEGATIVE Urine Urobilinogen 4 H Ur Leukocyte Esterase NEGATIVE Ur Microscopic Review NOT INDICATED Urine Culture Comments NOT INDICATED - Rads (name of study) abdominal xrays Relevant Findings:: Prelim report reviewed, See rad report PD Medical Decision Making - ED course Complexity details: reviewed results, re-evaluated patient, considered differential, d/w patient ED course: Normal BMP (insignificant finding of glucose 108), no concerning findings on LFTs. UA normal except 4 urobilinogen. Nontender on abdominal exam. Has only tried a few doses of dulcolax (the first dose, last week, worked well. He apparently comes to ED after trying two doses dulcolax today but no other interventions nor has he contacted his GI). Abdominal series (plain-film x-rays) are interpreted by the radiologist as unremarkable including stool load. I reviewed these images, as well, and it appears to me that there is at least a moderate amount of stool throughout the colon. There is no evidence of bowel obstruction or other acute pathology. Based on my interpretation of the x-rays and patient's symptoms that suggest constipation, he is being discharged with instructions regarding constipation and is given a glycerin suppository and milk of magnesia to take home. I instructed him to use the suppository and take the dose of milk of magnesia once he gets home and to expect results (large bowel movement and relief of symptoms) within the ensuing hours. Return precautions are discussed. I also recommended to the patient that he go to the pharmacy tomorrow to get milk of magnesia or MiraLAX to try if the symptoms persist or recur. Departure - Departure Disposition: Home, Self Care Clinical Impression: Constipation Condition: Good Instructions: ED Constipation Follow-Up: Scarlet Betancourt MD [Primary Care Provider] - Within 3 Days Comments: When you get home, use the suppository as directed and take the milk of magnesia. Hopefully, this will produce adequate results tonight. If you do not feel that you have adequately eliminated by morning, you can try gyjg-dpa-gnuzarm medication such as MiraLAX or milk of magnesia per label instructions. As we discussed, another option would be to use the bowel prep that you have at home. Forms: PCP List Discharge Date/Time: 01/21/23 22:26
--- NOTE | 2023-01-21 21:20 | XRAY Report ---
PROCEDURE: Abdomen Acute INDICATIONS: constipation v SBO TECHNIQUE: 2 views of the abdomen were acquired. COMPARISON: None. FINDINGS: Surgical changes and devices: None. Chest: Lungs are clear. Heart size is normal. No pleural effusions. No pneumoperitoneum. Bowel: No pneumoperitoneum. The bowel gas pattern is normal. Stool load within normal limits. Soft tissues: No masses; visualized solid organ contours appear normal in size. No suspicious abdom inal calcifications. Bones: No suspicious bony abnormalities. IMPRESSION: No acute abdominal or chest pathology. Reviewed by: Markus Davis on 01/21/2023 9:19 PM [facility] Approved by: Markus Davis on 01/21/2023 9:19 PM [facility] Station ID: [id number]
[2023-01-21] MEDS: GLYCERIN ADULT SUPP PR STA (22:19)
[2023-01-21] MEDS: MAGNESIUM HYDROXIDE 2,400 MG/30 ML UDC PO STA (22:19)
[2023-01-21 22:30] VITALS: BP 153/82; O2SAT 98
== END 2023-01-21 22:26 | disposition home or self-care (01) ==
LOC: ED 16:38
DX: K59.00 Constipation, unspecified (principal); I10 Essential (primary) hypertension; Z79.899 Other long term (current) drug therapy
CPT/HCPCS: 36415; 80053; 81001; 81003; 83690; 85025; 87086; 93005; 99283; 99284

== ENCOUNTER 2023-02-21 11:11 | Outpatient (CLI) | payer MEDICARE, OTHER ==
[2023-02-21 11:43] LABS: CREATININE 0.8 mg/dL (0.6-1.3)
[2023-02-21] MEDS ORDERED: DIATRIZOATE MEGLU/DIATRIZO SOD 30 ML BOTTLE PO ONE (16:28)
[2023-02-21] MEDS ORDERED: iohexoL-300 100 ML VIAL IVP ONE (16:28)
--- NOTE | 2023-02-22 11:12 | CT Report ---
PROCEDURE: ABDOMEN/PELVIS W INDICATIONS: CHANGE IN BOWEL HABITS, BLOATING CONTRAST: 100ml omni 300 TECHNIQUE: After the administration of oral and IV contrast, 5 mm thick sections acquired from the diaphragms to the symphysis. 5 mm thick coronal and sagittal reformats were acquired. For radiation dose reducti on, the following was used: automated exposure control, adjustment of mA and/or kV according to edi ent size. COMPARISON: CT of abdomen and pelvis with, 08/11/2016, 02/16/2013. FINDINGS: Image quality: Excellent. Lung bases and heart: There is a 1.3 cm irregular nodule in the right lower lobe (series 3 image 4).. Small hiatal hernia. Liver: No solid mass. Gallbladder and biliary tree: There is a gallstone. No gallbladder wall thickening. No intrahepatic b iliary dilation. Spleen: No splenomegaly. Pancreas: No pancreatic ductal dilation. Adrenals: No adrenal nodule. Kidneys and ureters: No hydronephrosis. There is a 3.1 cm simple cyst in the inferior pole of left ki dney. No solid mass. Bowel and peritoneum: There is mild colonic wall thickening involving the distal sigmoid colon suspic ious for colitis. No bowel distension. No pathologic free fluid. There is a large amount of stool in proximal colon. Lymph nodes: No central or retroperitoneal adenopathy. Vessels: No infrarenal aortic aneurysm. Moderate atherosclerotic calcifications. PELVIS Reproductive organs: Prostate is absent. Bladder: Bladder is not fully distended. Bladder wall appears mildly thickened. There are 2 bladder d iverticula arising from the right bladder wall. Pelvic lymph nodes: No pelvic adenopathy by size criteria. Bones: No aggressive osseous abnormality. Scoliosis. Severe degenerative disc disease in lumbar spine . Osteopenia. Other: No significant ventral or inguinal hernia. IMPRESSION: 1. Mild colonic wall thickening involving the distal sigmoid colon suspicious for colitis. After doreen atment of acute illness, please consider a colonoscopy as colon cancer could have a similar CT appear ance. 2. A large amount of stool in proximal colon. 3. A 1.3 cm irregular nodule in the right lower lobe. Recommend a short-term term follow-up CT in 3 [facility]. 4. Cholelithiasis. No CT findings to suggest acute cholecystitis. 5. Mild thickening of urinary bladder and 2 bladder diverticula. Fleischner Society criteria for SOLID lung nodule followup. Nodule size (mm)Low-risk patientHigh-risk patient "d4No follow-up neededFollow-up at 12 mo; if no change, no further follow-up >2-5Btbvdt-of CT at 12 mo; if no change, no further follow-up needed.Initial follow-up CT at 6-12 mo, then 18-24 mo if no change. >6-8Initial follow-up CT at 6-12 mo, then 18-24 mo if no change. Initial follow-up CT at 3-6 mo, then 9-12 mo and 24 mo if no change. >8Follow-up CT at 3, 9, 24 mo. Or PET and/or biopsy.Same as for low-risk pts. Reviewed by: Hanna Villeda MD on 02/22/2023 11:10 AM PST Approved by: Hanna Villeda MD on 02/22/2023 11:10 AM PST Station ID: [id number]
== END 2023-02-21 11:12 | disposition home or self-care (01) ==
LOC: DI 11:11
PROVIDERS: ATTEND Internal Medicine Gastroenterology
DX: R91.1 Solitary pulmonary nodule (principal); K80.20 Calculus of gallbladder without cholecystitis without obstruction; N32.3 Diverticulum of bladder; R14.0 Abdominal distension (gaseous); R19.4 Change in bowel habit
CPT/HCPCS: 36415; 74177; 82565; 84520; Q9963; Q9967

== ENCOUNTER 2023-03-25 09:34 | Outpatient (CLI) | payer MEDICARE, OTHER ==
[2023-03-25 14:09] LABS: BASOPHILS # (AUTO) 0.1 10^3/uL (0.0-0.1); BASOPHILS % (AUTO) 0.4 %; EOSINOPHILS # (AUTO) 0.1 10^3/uL (0.0-0.7); EOSINOPHILS % (AUTO) 0.5 %; HCT - HEMATOCRIT 35.5 % (42.0-52.0); HGB - HEMOGLOBIN 11.1 g/dL (14.0-18.0); LYMPHOCYTES % (AUTO) 8.5 %; MEAN CORPUSCULAR HEMOGLOBIN 31.7 pg (27.0-31.0); MEAN CORPUSCULAR HGB CONC 31.3 g/dL (32.0-36.0); MEAN CORPUSCULAR VOLUME 101.4 fL (80.0-94.0); MEAN PLATELET VOLUME 10.1 fL (7.4-11.4); MONOCYTES # (AUTO) 1.3 10^3/uL (0.0-1.0); MONOCYTES % (AUTO) 10.9 %; NEUTROPHILS # (AUTO) 9.3 10^3/uL (1.5-6.6); NEUTROPHILS % (AUTO) 78.4 %; PLT - PLATELET COUNT 429 10^3/uL (130-450); WHITE BLOOD COUNT 11.9 x10^3/uL (4.8-10.8)
[2023-03-25 14:37] LABS: ALBUMIN 2.9 g/dL (3.2-5.5); ALBUMIN/GLOBULIN RATIO 1.5 (1.0-2.2); BILIRUBIN,TOTAL 0.6 mg/dL (0.2-1.0); CALCIUM 8.4 mg/dL (8.5-10.3); CREATININE 0.7 mg/dL (0.6-1.3); POTASSIUM 4.4 mmol/L (3.5-4.5); TOTAL PROTEIN 4.9 g/dL (6.4-8.9)
[2023-03-26 20:08] LABS: FREE TESTOSTERONE(DIRECT) 0.6 pg/mL (6.6-18.1); TESTOSTERONE <3 ng/dL (264-916)
== END 2023-03-25 09:35 | disposition home or self-care (01) ==
LOC: LAB.S 09:34
PROVIDERS: ATTEND Internal Medicine Medical Oncology
DX: C61 Malignant neoplasm of prostate (principal); Z19.1 Hormone sensitive malignancy status
CPT/HCPCS: 36415; 80053; 84153; 84402; 84403; 85025

== ENCOUNTER 2023-04-02 21:56 | Outpatient (CLI) | payer MEDICARE, OTHER | END 2023-04-02 21:57 | disposition critical access hospital (66) | LOC: EMS 21:56 | DX: R10.13 Epigastric pain (principal); R10.816 Epigastric abdominal tenderness; R11.0 Nausea; R00.0 Tachycardia, unspecified; R60.0 Localized edema | CPT/HCPCS: A0425; A0427 ==

== ENCOUNTER 2023-04-02 22:33 | Emergency (ER) | payer MEDICARE, OTHER ==
--- NOTE | 2023-04-02 22:38 | ED Physician Documentation ---
PD HPI ABD PAIN - Stated complaint Stated Complaint: ABD PX - History obtained from History obtained from: Patient - Additional information Additional information: HPI from patient. Patient c/o episodic abdominal pain for several months. Tonight's episode started approximately 6 hours [employer] while at home at rest/ no inciting event. Pain is epigastric and radiates to LLQ. It is associated with nausea and vomiting, described as varying between sharp and dull, "like waves" (per patient) of pain. The pain also radiates into lower anterior chest. Denies fever, dyspnea, diarrhea, constipation. Prescription medications include epixaban for atrial fibrillation. He says he gets hives from IV contrast but can tolerate with pre- treatment of steroids and benadryl. Only past surgical abdominal/pelvic history is prostatectomy. He had some degree of pain relief with total of 175 micrograms fentanyl given en route by EMS, bringing pain from 8 (of 10) down to 3.Also given IV zofran by EMS. Review of Systems Constitutional: denies: Fever Cardiac: reports: Chest pain / pressure. denies: Palpitations, Pedal edema, Calf pain Respiratory: reports: Reviewed and negative GI: reports: Abdominal Pain, Nausea, Vomiting. denies: Abdominal Swelling, Constipation, Diarrhea, Hematemesis, Bloody / black stool : denies: Dysuria, Frequency PD PAST MEDICAL HISTORY - Past Medical History Cardiovascular: Hypertension Respiratory: None Endocrine/Autoimmune: None GI: Hemorrhoids : Other HEENT: Chronic vision loss Psych: None Musculoskeletal: None Derm: None - Past Surgical History Past Surgical History: Yes - Present Medications Home Medications: Ambulatory Orders Medication Instructions Recorded Confirmed Lisinopril [Zestril] 40 mg PO BID 01/21/23 01/21/23 Metoprolol Succinate 100 mg PO BID 01/21/23 01/21/23 Amox/Clav 875/125 [Augmentin 1 tablet PO Q12H 7 Days #14 tablet 04/03/23 875/125 Tab] Ondansetron Odt [Zofran] 4 mg TL Q6H PRN #14 tablet 04/03/23 oxyCODONE [Roxicodone] 5 mg PO Q4-6H PRN #14 tablet 04/03/23 - Allergies Allergies/Adverse Reactions: Allergies Allergy/AdvReac Type Severity Reaction Status Date / Time Iodinated Contrast Media Allergy Respiratory Verified 04/02/23 22:40 [Iodinated Contrast Media - Oral and] iodine Allergy Respiratory Verified 04/02/23 22:40 - Social History Does the pt smoke?: No Smoking Status: Never smoker Does the pt have substance abuse?: No - POLST Patient has POLST: No POLST Status: Full Code PD ED PE NORMAL - Vitals Vital signs reviewed: Yes - General General: Alert and oriented X 3, No acute distress, Well developed/nourished - Neck Neck: Supple, no meningeal sign - Cardiac Cardiac: RRR, No murmur - Respiratory Respiratory: No respiratory distress, Clear bilaterally - Abdomen Abdomen: Soft, Non distended, Other (diffuse mild-moderate TTP without rebound or guarding, greatest across upper abdomen ) - Back Back: No CVA TTP - Derm Derm: Normal color, Warm and dry, No rash - Extremities Extremities: No edema - Neuro Neuro: Alert and oriented X 3 Results - Vitals Vitals: Oxygen O2 Source Room air - EKG (time done) No standard instances EKG releavant findings:: EKG personally interpreted by author of this note. Relevant findings are: Rate: Rate (enter#) (67) Rhythm: NSR [place]: LAD Intervals: Normal CA QRS: Normal Ischemia: Normal ST segments - Labs Labs: Laboratory Tests 04/02/23 04/02/23 04/02/23 22:53 22:53 22:53 WBC 14.9 H RBC 3.88 L Hgb 12.2 L Hct 36.5 L MCV 94.1 H MCH 31.4 H MCHC 33.4 RDW 12.5 Plt Count 420 MPV 9.2 Neut # (Auto) 13.0 H Lymph # (Auto) 0.7 L Winston # (Auto) 1.0 Eos # (Auto) 0.0 Baso # (Auto) 0.0 Absolute Nucleated RBC 0.00 Nucleated RBC % 0.0 Sodium 135 Potassium 3.4 L Chloride 100 L Carbon Dioxide 25 Anion Gap 10.0 BUN 18 Creatinine 1.0 Estimated GFR (MDRD) 73 L Glucose 175 H Calcium 8.8 Total Bilirubin 0.6 AST 14 ALT 9 L Alkaline Phosphatase 42 Troponin I High Sens 8.2 B-Natriuretic Peptide Total Protein 4.9 L Albumin 2.8 L Globulin 2.1 Albumin/Globulin Ratio 1.3 Lipase 25 04/02/23 22:53 WBC RBC Hgb Hct MCV MCH MCHC RDW Plt Count MPV Neut # (Auto) Lymph # (Auto) Winston # (Auto) Eos # (Auto) Baso # (Auto) Absolute Nucleated RBC Nucleated RBC % Sodium Potassium Chloride Carbon Dioxide Anion Gap BUN Creatinine Estimated GFR (MDRD) Glucose Calcium Total Bilirubin AST ALT Alkaline Phosphatase Troponin I High Sens B-Natriuretic Peptide 101 H Total Protein Albumin Globulin Albumin/Globulin Ratio Lipase - Rads (name of study) RUQ US Relevant Findings:: Prelim report reviewed, See rad report CT A/P with PO contrast Relevant Findings:: Prelim report reviewed, See rad report PD Medical Decision Making - ED course Complexity details: reviewed results, re-evaluated patient, considered differential, d/w patient ED course: Mild leukocytosis on CBC (WBC 14.9), minimal hypokalemia (3.2). Unremarkable EKG and hs-cTn 8.2. Shortly after the EKG was completed, patient went into MAURA on superintendent logging. His only symptoms with this was sensation of rapid and irregular palpitations; he denied chest pain , dyspnea. He was given 15mg IV cardizem which resulted in conversion to NSR (a second order for 10mg IV cardizem was ordered but he converted prior to receiving this and thus it was cancelled). He remained in NSR for remainder of ED stay. RUQ US shows cholelithiasis with findings that bring into question cholecystitis. His LFTs are normal as is the lipase. Fortunately, the CT A/P does not have any evidence of cholecystitis. There are findings of patchy inflammation in both small and large intestine, s/o enterocolitis. Incidental findings include pulmonary nodule right lung (patient indicates he is aware of this finding), small right pleural effusion. He received 4mg IV morphine sulfate early in stay along with 1 liter NS which gave good and lasting symptom relief for remainder of stay (both by appearance and patient report). He was given 10mg decadron IV and 25mg benadryl as pre- treatment for CT A/P (this was out of an abundance of caution, as the CT was PO contrast only). Thus, patient's symptoms are likely due to enterocolitis (possibility remains that biliary colic might , at times, be causing or contributing to his abdominal pain episodes). He is given augmentin 875mg PO and e-prescribed augmentin, oxycodone, and zofran. Return precautions reviewed. Advised to seek follow up with PCP within 1 week Departure - Departure Disposition: 01 Home, Self Care Clinical Impression: Enterocolitis Gallstone Qualifiers: Cholecystitis presence: without cholecystitis Biliary obstruction: without biliary obstruction Qualified Code(s): K80.20 - Calculus of gallbladder without cholecystitis without obstruction Condition: Good Instructions: ED Gastroenteritis Non Infec, ED Gastroenteritis Viral Prescriptions: Amox/Clav 875/125 [Augmentin 875/125 Tab] 1 tablet PO Q12H 7 Days #14 tablet oxyCODONE [Roxicodone] 5 mg PO Q4-6H PRN #14 tablet PRN Reason: Pain >8 Ondansetron Odt [Zofran] 4 mg TL Q6H PRN #14 tablet PRN Reason: Nausea / Vomiting Comments: There were no concerning findings on tonight's blood tests. Your white blood cell count was elevated above the normal range, but mildly so. The ultrasound does show that you have a gallstone; is unclear if this is causing, or contributing to your symptoms or if it is a completely incidental finding. The CT scan of your abdomen and pelvis shows areas of inflammation in both your small and large intestine; this is called enterocolitis. There are several different causes of enterocolitis, but determining the cause typically requires tests not available in the emergency department. Fortunately, most cases of enterocolitis resolve without needing further tests. One of the possible causes is infection, including bacterial. To help cover this possibility, you were given the first dose of an antibiotic (Augmentin) in the emergency department, and I am electronically submitting it prescription for a 1-week course of Augmentin to the [facility] pharmacy in [place]. I am also submitting a prescription for oxycodone (narcotic/opiate pain medication) and ondansetron (antinausea medication) to the [facility] pharmacy. During your emergency department stay, you were noted to be in rapid atrial fibrillation. This resolved with a single dose of IV Cardizem; Cardizem is often used for control of blood pressure, but also can be very helpful in converting atrial fibrillation into a normal sinus rhythm as it did in your case. You should contact your primary care provider when their office is next open to arrange for a follow-up appointment within the next few days. You might need further tests regarding the findings on the CT scan. I am prescribing a short course of narcotic pain medication for you. These are potentially dangerous and addictive medications that should be used carefully. These medications may constipate you. Take an aelv-uzj-kpmqolb stool softener (docusate) twice daily with plenty of water while taking these medications. If you go 24 hours without a bowel movement, take eapx-sbs-[id number] miralax, per package instructions. Do not drink or drive while taking these medications. If you received narcotic or sedating medications while in the emergency department, do not drive for 24 hours. Store this medication in a safe, secure place and out of reach of children. It is a violation of federal law to give or sell this medication to another person or to use in a manner other than prescribed. The ED will not refill narcotic prescriptions, including prescriptions lost or stolen. To dispose of unwanted medications: 1. [facility] at [address] in [place] has a medication drop box. They accept prescription medications (in pill form) Saturday through Saturday 9:00 a.m. to 5:00 p.m. 2. The [facility] [employer] accepts prescription medications (in pill form only) for disposal year round. Call for more information. 3. Contact the [facility] for the next [facility] sponsored prescription drug collection event. , [phone], or [phone]; Forms: PCP List Discharge Date/Time: 04/03/23 05:15
[2023-04-02] MEDS ORDERED: MORPHINE 2 MG/ML CARPUJECT IVP STA (23:01)
[2023-04-02] MEDS ORDERED: SODIUM CHLORIDE 0.9% 1,000 ML IV STA (23:01)
[2023-04-02 23:09] LABS: BASOPHILS % (AUTO) 0.3 %; EOSINOPHILS % (AUTO) 0.1 %; HCT - HEMATOCRIT 36.5 % (42.0-52.0); HGB - HEMOGLOBIN 12.2 g/dL (14.0-18.0); LYMPHOCYTES # (AUTO) 0.7 10^3/uL (1.5-3.5); LYMPHOCYTES % (AUTO) 4.8 %; MEAN CORPUSCULAR HEMOGLOBIN 31.4 pg (27.0-31.0); MEAN CORPUSCULAR HGB CONC 33.4 g/dL (32.0-36.0); MEAN CORPUSCULAR VOLUME 94.1 fL (80.0-94.0); MEAN PLATELET VOLUME 9.2 fL (7.4-11.4); MONOCYTES % (AUTO) 6.5 %; NEUTROPHILS % (AUTO) 87.2 %; PLT - PLATELET COUNT 420 10^3/uL (130-450); RED BLOOD COUNT 3.88 10^6/uL (4.70-6.10); RED CELL DISTRIBUTION WIDTH 12.5 % (12.0-15.0); WHITE BLOOD COUNT 14.9 x10^3/uL (4.8-10.8)
[2023-04-02] MEDS ORDERED: diltiaZEM INJ 5 MG/ML VIAL IVP STA (23:29)
[2023-04-02 23:33] LABS: BILIRUBIN,TOTAL 0.6 mg/dL (0.2-1.0); CALCIUM 8.8 mg/dL (8.5-10.3); POTASSIUM 3.4 mmol/L (3.5-4.5)
[2023-04-02 23:34] LABS: ALBUMIN 2.8 g/dL (3.2-5.5); ALBUMIN/GLOBULIN RATIO 1.3 (1.0-2.2); TOTAL PROTEIN 4.9 g/dL (6.4-8.9)
[2023-04-02] MEDS ORDERED: DIATRIZOATE MEGLU/DIATRIZO SOD 30 ML BOTTLE PO ONE (23:37)
[2023-04-03] MEDS ORDERED: DEXAMETHASONE 10 MG/ML VIAL IVP STA (00:03)
[2023-04-03] MEDS ORDERED: diphenhydrAMINE INJ 50 MG/ML VIAL IVP STA (00:03)
[2023-04-03] MEDS ORDERED: diltiaZEM INJ 5 MG/ML VIAL IVP STA (00:20)
--- NOTE | 2023-04-03 00:35 | Ultrasound Report ---
PROCEDURE: Abdomen Limited INDICATIONS: abd. pain TECHNIQUE: Real-time focused scanning was performed of the abdomen, with image documentation. COMPARISONS: CT of abdomen and pelvis, 02/21/2023. Ultrasound abdomen limited, 08/11/2016 FINDINGS: Liver: Liver is normal in size and coarse in echotexture. Vein is patent with hepatopedal flow. Gallbladder: There is a 1.8 cm gallstone. Gallbladder wall is thickened measuring 3.4 mm in thickness . The bladder is distended. No pericholecystic fluid collection or sonographic Craig sign. Biliary ducts: Intrahepatic bile ducts are non-dilated. Extrahepatic bile duct caliber measures 5.4 mm. Normal is 6-7 mm or less in diameter, or 10 mm or less post-cholecystectomy. Pancreas: Obscured by overlying bowel gas. Right kidney: Normal in size and echotexture. Right kidney measures 10.5 cm long. No hydronephrosis or nephrolithiasis. No solid masses. No complex renal cystic lesions which require follow-up. Miscellaneous: Trace amount of ascites in the right upper quadrant. IMPRESSION: 1. Cholelithiasis. There is bladder wall thickening and distention concerning for acute cholecystitis . If clinically indicated, HIDA scan may be helpful. 2. Coarse echotexture of liver. Please correlate with liver functions. 3. Pancreas is obscured by overlying bowel gas 4. Trace amount of ascites in the right upper quadrant. Reviewed by: Hanna Villeda MD on 04/03/2023 12:34 AM PST Approved by: Hanna Villeda MD on 04/03/2023 12:34 AM PST Station ID: [id number]
--- NOTE | 2023-04-03 02:33 | CT Report ---
PROCEDURE: Abdomen/Pelvis W/O INDICATIONS: abd. pain, waxing/waning CONTRAST: Oral contrast only. TECHNIQUE: After the administration of oral contrast, a CT scan of the abdomen and pelvis was performed. Images were recorded and evaluated at appropriate window settings. Reformats: coronal and sagittal. For radi ation dose reduction, the following was used: automated exposure control, adjustment of mA and/or kV according to patient size. COMPARISON: CT abdomen and pelvis, 02/21/2023. FINDINGS: Image quality: Excellent. Lung bases and heart: There is a 3 mm nodule in the right lower lobe. Right basilar consolidation and trace right pleural effusion. Small hiatal hernia. There is gastroesophageal reflux. Liver: No solid mass. Gallbladder and biliary tree: There is a gallstone. Gallbladder is mildly distended. No gallbladder w all thickening or pericholecystic fluid. Spleen: No splenomegaly. Pancreas: No pancreatic ductal dilation. Adrenals: No adrenal nodule. Kidneys and ureters: No hydronephrosis. No renal cystic lesion which requires follow up. There is a 2 .5 cm simple cyst in the left kidney. No solid mass. Bowel and peritoneum: Distended stomach with an air-fluid level. There is segmental small bowel wall thickening. Mild colonic wall thickening involving the descending and sigmoid colon. There is a small amount of free fluid around liver and in the cul-de-sac. Lymph nodes: There are enlarged mesenteric lymph nodes in the right lower quadrant. Vessels: No infrarenal aortic aneurysm. PELVIS Reproductive organs: Unremarkable. Bladder: No abnormal wall thickening, accounting for underdistention. Pelvic lymph nodes: No pelvic adenopathy by size criteria. Bones: No aggressive osseous abnormality. Scoliosis and severe degenerative changes in lumbar spine. Other: No significant ventral or inguinal hernia. IMPRESSION: 1. Segmental small bowel wall thickening and distal colonic wall thickening compatible with endocardi tis. 2. There is a small amount of free fluid in the abdomen and pelvis. 3. Enlarged mesenteric lymph nodes in the right lower quadrant. This finding is nonspecific and may b e secondary to infectious or inflammatory etiology, but neoplasm cannot be excluded. Recommend imagin g follow-up to resolution. 4. Cholelithiasis. No CT findings to suggest acute cholecystitis. 5. A right pleural effusion with right basilar consolidation. 6. A 3 mm nodule in the right lower lobe. Reviewed by: Hanna Villeda MD on 04/03/2023 2:31 AM PST Approved by: Hanna Villeda MD on 04/03/2023 2:31 AM PST Station ID: [id number]
[2023-04-03] MEDS ORDERED: AMOX/CLAV 875 MG/125 MG TABLET PO STA (04:13)
[2023-04-03 05:27] VITALS: BP 137/71; O2SAT 95
== END 2023-04-03 05:15 | disposition home or self-care (01) ==
LOC: EDUNIT# → ED 22:33
DX: K80.20 Calculus of gallbladder without cholecystitis without obstruction (principal); K52.9 Noninfective gastroenteritis and colitis, unspecified; R91.1 Solitary pulmonary nodule; I10 Essential (primary) hypertension; I48.91 Unspecified atrial fibrillation; Z79.01 Long term (current) use of anticoagulants
CPT/HCPCS: 36415; 74177; 76705; 80053; 83690; 83880; 84484; 85025; 93005; 96374; 96375; 99284; J1200; Q9963

== ENCOUNTER 2023-04-08 08:00 | Outpatient (CLI) | payer MEDICARE, OTHER ==
[2023-04-08 15:00] LABS: H. PYLORIS ANTIGEN STL NEGATIVE (Negative)
== END 2023-04-08 23:59 | disposition home or self-care (01) ==
LOC: LAB.R 08:00
PROVIDERS: ATTEND Physician Assistant Medical
DX: R10.9 Unspecified abdominal pain (principal); G89.29 Other chronic pain
CPT/HCPCS: 83993; 87338; 87493

== ENCOUNTER 2023-04-19 15:46 | Outpatient (CLI) | payer MEDICARE, OTHER | END 2023-04-19 15:47 | disposition critical access hospital (66) | LOC: EMS 15:46 | DX: R10.84 Generalized abdominal pain (principal); R10.817 Generalized abdominal tenderness; K59.00 Constipation, unspecified; R53.1 Weakness | CPT/HCPCS: A0425; A0429 ==

== ENCOUNTER 2023-04-19 16:21 | Emergency (ER) | payer MEDICARE, OTHER ==
[2023-04-19 16:57] LABS: BASOPHILS % (AUTO) 0.3 %; EOSINOPHILS # (AUTO) 0.1 10^3/uL (0.0-0.7); EOSINOPHILS % (AUTO) 0.4 %; HCT - HEMATOCRIT 36.7 % (42.0-52.0); HGB - HEMOGLOBIN 11.8 g/dL (14.0-18.0); LYMPHOCYTES # (AUTO) 0.8 10^3/uL (1.5-3.5); LYMPHOCYTES % (AUTO) 6.2 %; MEAN CORPUSCULAR HEMOGLOBIN 30.9 pg (27.0-31.0); MEAN CORPUSCULAR HGB CONC 32.2 g/dL (32.0-36.0); MEAN CORPUSCULAR VOLUME 96.1 fL (80.0-94.0); MEAN PLATELET VOLUME 9.7 fL (7.4-11.4); MONOCYTES % (AUTO) 7.9 %; NEUTROPHILS # (AUTO) 10.4 10^3/uL (1.5-6.6); NEUTROPHILS % (AUTO) 83.8 %; PLT - PLATELET COUNT 362 10^3/uL (130-450); RED BLOOD COUNT 3.82 10^6/uL (4.70-6.10); RED CELL DISTRIBUTION WIDTH 12.3 % (12.0-15.0); WHITE BLOOD COUNT 12.4 x10^3/uL (4.8-10.8)
[2023-04-19] MEDS: SODIUM CHLORIDE 0.9% 1,000 ML IV STA (17:18)
[2023-04-19] MEDS: DICYCLOMINE 10 MG CAPSULE PO STA (17:19)
[2023-04-19 17:20] LABS: ALBUMIN 2.7 g/dL (3.2-5.5); ALBUMIN/GLOBULIN RATIO 1.5 (1.0-2.2); BILIRUBIN,TOTAL 0.8 mg/dL (0.2-1.0); CALCIUM 8.5 mg/dL (8.5-10.3); CREATININE 0.8 mg/dL (0.6-1.3); POTASSIUM 3.8 mmol/L (3.5-4.5); TOTAL PROTEIN 4.5 g/dL (6.4-8.9)
--- NOTE | 2023-04-19 17:25 | ED Physician Documentation ---
History of Present Illness - Stated complaint Stated Complaint: ABD PX - Chief complaint Chief Complaint: Abd Pain - History obtained from History obtained from: Patient - History of Present Illness Timing: Other (several months) Pain level max: 5 Pain level now: 2 - Additonal information Additional information: 77-year-old male presents to the emergency department stating that he has had abdominal issues for many years, some abdominal pain over the past several months. He has had CT scans and ultrasounds. He states that he has been told he has gallstones. Also states that he has inflammation in his intestines. He states he had a recent colonoscopy at [facility] in [place] but he does not know the results and states that they had to stop it early because he threw up. No fevers. No chills. He states he has had chronic constipation mixed with intermittent diarrhea. Nothing makes it better or worse. He states he is having about a 3 out of 10 pain right now. He states that he did receive fentanyl in the ambulance once which seemed to help his pain. He occasionally takes Tylenol at home for pain. He states his doctor told him that he has an excess of inflammation and that his blood marker for inflammation was high. Patient also states that he has a history of prostate cancer and is status post a prostatectomy. He states his PSA is undetectable. Review of Systems Constitutional: denies: Fever, Chills GI: reports: Constipation, Diarrhea. denies: Vomiting, Hematemesis, Bloody / black stool : denies: Dysuria, Frequency, Hesitancy Skin: denies: Rash Musculoskeletal: denies: Neck pain, Back pain Neurologic: denies: Headache PD PAST MEDICAL HISTORY - Past Medical History Cardiovascular: Hypertension Respiratory: None Endocrine/Autoimmune: None GI: Hemorrhoids : Other HEENT: Chronic vision loss Psych: None Musculoskeletal: None Derm: None - Past Surgical History Past Surgical History: Yes - Present Medications Home Medications: Ambulatory Orders Medication Instructions Recorded Confirmed Lisinopril [Zestril] 40 mg PO BID 01/21/23 04/19/23 Metoprolol Succinate 100 mg PO BID 01/21/23 04/19/23 Amox/Clav 875/125 [Augmentin 1 tablet PO Q12H 7 Days #14 tablet 04/03/23 875/125 Tab] Ondansetron Odt [Zofran] 4 mg TL Q6H PRN #14 tablet 04/03/23 oxyCODONE [Roxicodone] 5 mg PO Q4-6H PRN #14 tablet 04/03/23 04/19/23 Apixaban [Eliquis] 5 mg PO BID 04/19/23 04/19/23 Hyoscyamine Sulfate [Levsin-Sl] 0.125 mg SL Q6H PRN #30 tab 04/19/23 Ondansetron Odt [Zofran Odt] 4 mg TL Q6H PRN 04/19/23 04/19/23 - Allergies Allergies/Adverse Reactions: Allergies Allergy/AdvReac Type Severity Reaction Status Date / Time Iodinated Contrast Media Allergy Respiratory Verified 04/19/23 17:44 [Iodinated Contrast Media - Oral and] iodine Allergy Respiratory Verified 04/19/23 17:44 sodium phosphate AdvReac Nausea Verified 04/19/23 17:44 [From [employer]] - Social History Does the pt smoke?: No Smoking Status: Never smoker Does the pt drink ETOH?: No Does the pt have substance abuse?: No - Immunizations Immunizations are current?: No - POLST Patient has POLST: No POLST Status: Full Code PD ED PE NORMAL - Vitals Vital signs reviewed: Yes - General General: Alert and oriented X 3, No acute distress - HEENT HEENT: Moist mucous membranes - Neck Neck: Supple, no meningeal sign - Cardiac Cardiac: RRR - Respiratory Respiratory: No respiratory distress, Clear bilaterally - Abdomen Abdomen: Soft, Non distended, Other (Mild tenderness to palpation epigastric. No peritoneal signs. Negative Craig sign) - Derm Derm: Warm and dry, No rash - Extremities Extremities: No edema - Neuro Neuro: Alert and oriented X 3 - Psych Psych: Normal mood, Normal affect Results - Vitals Vitals: Vital Signs - 24 hr 04/19/23 04/19/23 04/19/23 16:32 18:38 19:05 Temperature 36.8 C Heart Rate 69 75 70 Respiratory 13 17 17 Rate Blood Pressure 136/72 H 151/76 H 160/81 H O2 Saturation 99 95 98 Oxygen O2 Source Room air - Labs Labs: Laboratory Tests 04/19/23 04/19/23 04/19/23 16:30 16:30 19:08 WBC 12.4 H RBC 3.82 L Hgb 11.8 L Hct 36.7 L MCV 96.1 H MCH 30.9 MCHC 32.2 RDW 12.3 Plt Count 362 MPV 9.7 Neut # (Auto) 10.4 H Lymph # (Auto) 0.8 L Darke # (Auto) 1.0 Eos # (Auto) 0.1 Baso # (Auto) 0.0 Absolute Nucleated RBC 0.00 Nucleated RBC % 0.0 Sodium 138 Potassium 3.8 Chloride 104 Carbon Dioxide 30 Anion Gap 4.0 L BUN 23 H Creatinine 0.8 Estimated GFR (MDRD) 94 Glucose 98 Calcium 8.5 Total Bilirubin 0.8 AST 11 ALT 8 L Alkaline Phosphatase 42 Total Protein 4.5 L Albumin 2.7 L Globulin 1.8 L Albumin/Globulin Ratio 1.5 Lipase 15 Urine Color YELLOW Urine Clarity CLEAR Urine pH 7.5 Ur Specific Pickett 1.010 Urine Protein NEGATIVE Urine Glucose (UA) NEGATIVE Urine Ketones TRACE Urine Occult Blood NEGATIVE Urine Nitrite NEGATIVE Urine Bilirubin NEGATIVE Urine Urobilinogen 0.2 (NORMAL) Ur Leukocyte Esterase NEGATIVE Ur Microscopic Review NOT INDICATED Urine Culture Comments NOT INDICATED PD Medical Decision Making - ED course Complexity details: reviewed results, re-evaluated patient, considered differential, d/w patient ED course: Patient is well-appearing, nontoxic. Afebrile. Unclear exactly why he is in the emergency department today, he states his symptoms are actually better than usual. He is going to need to follow-up with his GI for the results of his colonoscopy, those are not available tonight. He was given a dose of Gastrografin orally that resulted in a large bowel movement. He was also given a dose of IV Decadron. Pain improved with Bentyl. He is not vomiting. No fevers. Likely has IBS versus IBD. Negative Craig sign. No evidence of acute cholecystitis. White blood cell count is lower than previous. He is on Entocort at home. Patient is very well-appearing, nontoxic. Afebrile. Patient counseled regarding signs and symptoms for which I believe and urgent re- evaluation would be necessary. Patient with good understanding of and agreement to plan and is comfortable going home at this time This document was made in part using voice recognition software. While efforts are made to proofread this document, sound alike and grammatical errors may occur. Departure - Departure Disposition: 01 Home, Self Care Clinical Impression: Constipation Qualifiers: Constipation type: unspecified constipation type Qualified Code(s): K59.00 - Constipation, unspecified Abdominal pain Qualifiers: Abdominal location: unspecified location Qualified Code(s): R10.9 - Unspecified abdominal pain Condition: Good Instructions: ED Abdominal Pain Unkn Cause Male Follow-Up: Lona Rico PA [Credentialed Staff Provider] - Prescriptions: Hyoscyamine Sulfate [Levsin-Sl] 0.125 mg SL Q6H PRN #30 tab PRN Reason: Abdominal Pain Comments: Your prescription was sent to [facility] in [place]. Please follow-up with your doctor for further care. Please return if you worsen. You need to follow up with your doctor and your GI physician for further care. Forms: PCP List Discharge Date/Time: 04/19/23 20:20
[2023-04-19] MEDS: DIATR MEGLU/DIATRIZOATE SODIUM 120 ML BOTTLE PO ONE (18:57)
[2023-04-19] MEDS: DEXAMETHASONE 10 MG/ML VIAL IVP STA (18:57)
[2023-04-19 19:10] LABS: BILIRUBIN,URINE NEGATIVE (NEGATIVE); GLUCOSE, URINE (UA) NEGATIVE (NEGATIVE); KETONES,URINE (UA) TRACE mg/dL (NEGATIVE); LEUKOCYTE ESTERASE, URINE NEGATIVE (NEGATIVE); NITRITE,URINE NEGATIVE (NEGATIVE); OCCULT BLOOD,URINE NEGATIVE (NEGATIVE); PH,URINE 7.5 PH (5.0-7.5); PROTEIN,URINE NEGATIVE (NEGATIVE); UROBILINOGEN,URINE 0.2 (NORMAL) E.U./dL (NORMAL)
[2023-04-19 19:11] LABS: CLARITY,URINE CLEAR (CLEAR)
[2023-04-19 19:12] VITALS: BP 160/81; O2SAT 98
[2023-04-19] MEDS: ONDANSETRON ODT 4 MG TABLET TL STA (20:17)
== END 2023-04-19 20:20 | disposition home or self-care (01) ==
LOC: EDUNIT# → ED 16:21
DX: K59.00 Constipation, unspecified (principal)
CPT/HCPCS: 36415; 80053; 81003; 83690; 85025; 96374; 99283; A9270; Q0162; Q9963; 81001; 87086

== ENCOUNTER 2023-04-21 18:03 | Outpatient (CLI) | payer MEDICARE, OTHER | END 2023-04-21 18:04 | disposition critical access hospital (66) | LOC: EMS 18:03 | DX: R10.84 Generalized abdominal pain (principal); R10.811 Right upper quadrant abdominal tenderness; R10.813 Right lower quadrant abdominal tenderness; R14.0 Abdominal distension (gaseous); K59.00 Constipation, unspecified; R19.7 Diarrhea, unspecified; R11.0 Nausea; R30.0 Dysuria | CPT/HCPCS: A0425; A0427 ==

== ENCOUNTER 2023-04-21 18:38 | Emergency (ER) | payer MEDICARE, OTHER ==
[2023-04-21 19:08] LABS: BASOPHILS # (AUTO) 0.1 10^3/uL (0.0-0.1); BASOPHILS % (AUTO) 0.3 %; EOSINOPHILS % (AUTO) 0.1 %; HCT - HEMATOCRIT 35.8 % (42.0-52.0); HGB - HEMOGLOBIN 11.8 g/dL (14.0-18.0); LYMPHOCYTES # (AUTO) 0.5 10^3/uL (1.5-3.5); LYMPHOCYTES % (AUTO) 2.4 %; MEAN PLATELET VOLUME 9.1 fL (7.4-11.4); MONOCYTES # (AUTO) 1.5 10^3/uL (0.0-1.0); MONOCYTES % (AUTO) 7.6 %; NEUTROPHILS # (AUTO) 17.4 10^3/uL (1.5-6.6); NEUTROPHILS % (AUTO) 88.6 %; PLT - PLATELET COUNT 365 10^3/uL (130-450); RED BLOOD COUNT 3.81 10^6/uL (4.70-6.10); RED CELL DISTRIBUTION WIDTH 12.2 % (12.0-15.0); WHITE BLOOD COUNT 19.6 x10^3/uL (4.8-10.8)
[2023-04-21 19:27] LABS: ALBUMIN 2.7 g/dL (3.2-5.5); ALBUMIN/GLOBULIN RATIO 1.4 (1.0-2.2); BILIRUBIN,TOTAL 0.9 mg/dL (0.2-1.0); CALCIUM 8.3 mg/dL (8.5-10.3); CREATININE 0.7 mg/dL (0.6-1.3); POTASSIUM 3.3 mmol/L (3.5-4.5); TOTAL PROTEIN 4.6 g/dL (6.4-8.9)
--- NOTE | 2023-04-21 19:27 | ED Physician Documentation ---
PD HPI ABD PAIN - Stated complaint Stated Complaint: ABD PX - Chief complaint Chief Complaint: Abd Pain - History obtained from History obtained from: Patient - Additional information Additional information: 77-year-old gentleman has a history of prostate cancer in remission and more recently has had a lot of bowel issues over the last few months. He states that sometimes he will have bloating and not diarrhea per se but frequent large stools. It sounds like he has had a colonoscopy done in [place] with finding of nonspecific inflammation and a very high fecal Moody Pro tech 10. He was on stero ids which were very helpful for him when he was on prednisone, but more recently was switched over to budesonide which he finds not nearly as helpful. The pain is daily, migratory and today was worse. He did have some relief with fentanyl on route. PD PAST MEDICAL HISTORY - Past Medical History Past Medical History: Yes Cardiovascular: Hypertension Respiratory: None Neuro: None Endocrine/Autoimmune: None GI: Hemorrhoids : Other HEENT: Chronic vision loss Psych: None Musculoskeletal: None Derm: None Other Past Medical History: prostate cancer - Past Surgical History Past Surgical History: Yes - Present Medications Home Medications: Ambulatory Orders Medication Instructions Recorded Confirmed Lisinopril [Zestril] 40 mg PO BID 01/21/23 04/19/23 Metoprolol Succinate 100 mg PO BID 01/21/23 04/19/23 Amox/Clav 875/125 [Augmentin 1 tablet PO Q12H 7 Days #14 tablet 04/03/23 875/125 Tab] Ondansetron Odt [Zofran] 4 mg TL Q6H PRN #14 tablet 04/03/23 oxyCODONE [Roxicodone] 5 mg PO Q4-6H PRN #14 tablet 04/03/23 04/19/23 Apixaban [Eliquis] 5 mg PO BID 04/19/23 04/19/23 Hyoscyamine Sulfate [Levsin-Sl] 0.125 mg SL Q6H PRN #30 tab 04/19/23 Ondansetron Odt [Zofran Odt] 4 mg TL Q6H PRN 04/19/23 04/19/23 Oxycodone HCl/Acetaminophen 1 - 2 each PO Q6H PRN #14 tablet 04/21/23 [Percocet 5-325 mg Tablet] metroNIDAZOLE [Flagyl] 500 mg PO BID 7 Days #14 tablet 04/21/23 predniSONE [Deltasone] 4 tablet PO DAILY #40 tablet 04/21/23 - Allergies Allergies/Adverse Reactions: Allergies Allergy/AdvReac Type Severity Reaction Status Date / Time Iodinated Contrast Media Allergy Respiratory Verified 04/21/23 18:49 [Iodinated Contrast Media - Oral and] iodine Allergy Respiratory Verified 04/21/23 18:49 sodium phosphate AdvReac Nausea Verified 04/21/23 18:49 [From Fleet [employer]ema] - Social History Does the pt smoke?: No Smoking Status: Never smoker Does the pt drink ETOH?: No Does the pt have substance abuse?: Yes Substance Use and Type: CBD oil / Products - Immunizations Immunizations are current?: No Immunizations: Other immun not current - POLST Patient has POLST: No POLST Status: Full Code PD ED PE NORMAL - Vitals Vital signs reviewed: Yes - General General: Alert and oriented X 3, No acute distress - Abdomen Abdomen: Normal bowel sounds, Soft, Non tender - Neuro Neuro: Alert and oriented X 3, Normal speech Results - Vitals Vitals: Vital Signs - 24 hr 04/21/23 04/21/23 04/21/23 18:49 19:25 20:00 Temperature 37.1 C Heart Rate 80 97 85 Respiratory 18 15 18 Rate Blood Pressure 176/89 H 159/65 H 166/85 H O2 Saturation 100 100 96 Oxygen O2 Source Room air - Labs Labs: Laboratory Tests 04/21/23 04/21/23 19:04 19:04 WBC 19.6 H RBC 3.81 L Hgb 11.8 L Hct 35.8 L MCV 94.0 MCH 31.0 MCHC 33.0 RDW 12.2 Plt Count 365 MPV 9.1 Neut # (Auto) 17.4 H Lymph # (Auto) 0.5 L [place] # (Auto) 1.5 H Eos # (Auto) 0.0 Baso # (Auto) 0.1 Absolute Nucleated RBC 0.00 Nucleated RBC % 0.0 Sodium 137 Potassium 3.3 L Chloride 104 Carbon Dioxide 27 Anion Gap 6.0 BUN 18 Creatinine 0.7 Estimated GFR (MDRD) 110 Glucose 130 H Calcium 8.3 L Total Bilirubin 0.9 AST 12 ALT 8 L Alkaline Phosphatase 39 L Total Protein 4.6 L Albumin 2.7 L Globulin 1.9 L Albumin/Globulin Ratio 1.4 Lipase 10 L - Rads (name of study) CT KUB Relevant Findings:: Final report received, EMP independent interpretation of test PD Medical Decision Making - ED course ED course: 77-year-old gentleman with an inflammatory bowel issue, the exact diagnosis is not clear and we do not know what the pathology done in [place] showed, but he has having exacerbation. States he gets relief with steroids but not budesonide. He had a recent colonoscopy but it was aborted due to the onset of A-fib while he was getting the scope and therefore it sounds like biopsies were not done which is unfortunate, as we do not have a clear diagnosis as to the underlying pathology. We did do a CAT scan here tonight which showed kind of diffuse enterocolitis not changed from prior that does include the small bowel. To me this is most suggestive of Crohn's, but again he really will not have a formal diagnosis until the colonoscopy is completed with biopsies. He does note that he has been on budesonide which is not giving him relief, but when he was previously on steroids he was feeling much better. Also got some relief with a recent round of antibiotics but it is not clear what he was on. He recognizes neither the name of metronidazole nor ciprofloxacin. Workup in the emergency department does demonstrate a leukocytosis, he has had a leukocytosis of late but this is higher than the previous values we have seen. CMP showing mild hypokalemia, and low protein and albumin from likely chronic disease and poor appetite. He was feeling better after fentanyl given en route and also requested steroids and he was given Solu-Medrol 125 mg here. He declined further pain medication but does want some oxycodone for home as had relief with that in the past. Also wants to be back on steroids and we will try to get him to the lowest dose. Departure - Departure Disposition: 01 Home, Self Care Clinical Impression: Enterocolitis Condition: Good Record reviewed to determine appropriate education?: Yes Instructions: ED Abdominal Pain Unkn Cause Male Prescriptions: predniSONE [Deltasone] 4 tablet PO DAILY #40 tablet metroNIDAZOLE [Flagyl] 500 mg PO BID 7 Days #14 tablet Oxycodone HCl/Acetaminophen [Percocet 5-325 mg Tablet] 1 - 2 each PO Q6H PRN #14 tablet PRN Reason: pain Comments: Your CAT scan continues to show a persistent small bowel and colonic thickening and enlarged mesenteric lymph nodes. To me this is most consistent with something like Crohn's disease, but alternative diagnoses including cancer cannot be excluded. You really do need to repeat that colonoscopy with biopsies to get a more formal diagnosis. Until then I sent a prescription for steroids, antibiotics, and oxycodone to the [facility] in [place]. Call your doctor to arrange a follow-up appointment, make the next available appointment. In the interim, return anytime if worse or if new symptoms develop. I am prescribing a short course of narcotic pain medication for you. These are potentially dangerous and addictive medications that should be used carefully. These medications may constipate you. Take an lyrv-slw-bzpmqal stool softener (docusate) twice daily with plenty of water while taking these medications. If you go 24 hours without a bowel movement, take dtzx-xdr-mzsyrrw miralax, per package instructions. Do not drink or drive while taking these medications. If you received narcotic or sedating medications while in the emergency department, do not drive for 24 hours. Store this medication in a safe, secure place and out of reach of children. It is a violation of federal law to give or sell this medication to another person or to use in a manner other than prescribed. The ED will not refill narcotic prescriptions, including prescriptions lost or stolen. To dispose of unwanted medications: 1. [facility] provides a drop box for medication in pill form only (no liquids) 8:00 am to 4:30 p.m. Saturday-Saturday in the lobby of the [facility], [address] [place] [address]. Empty pills into ziplock bag before disposal. Call [phone] for information. 2.[employer] is a free service available to all [facility] residents. Go to [email or web address] Note that many narcotic pain relievers also contain Tylenol/acetaminophen. Please ensure that your total dose of acetaminophen from all sources does not exceed 3 g (3000 mg) per day. Forms: PCP List
[2023-04-21] MEDS: methylPREDNISolone SUCCINATE 125 MG/2 ML VIAL IVP STA (19:58)
--- NOTE | 2023-04-21 20:29 | CT Report ---
PROCEDURE: Abdomen/Pelvis WO INDICATIONS: abd pain TECHNIQUE: A CT scan of the abdomen and pelvis was performed without the use of intravenous contrast. Images we re recorded and evaluated at appropriate window settings. Reformats: coronal and sagittal. For radiat ion dose reduction, the following was used: automated exposure control, adjustment of mA and/or kV ac cording to patient size. COMPARISON: CT abdomen and pelvis 04/02/2023, 02/22/2023. FINDINGS: Image quality: Diagnostic. Lower chest: Compared to CT 02/22/2023, interval resolution of right basilar atelectasis and trace pl eural effusion. Stable appearance of 3 mm right lower lobe nodule (/). Liver: No contour-deforming mass. Gallbladder and biliary tree: Cholelithiasis without wall thickening. No biliary dilation. CT evidenc e of acute inflammation. Spleen: No splenomegaly. Pancreas: No pancreatic ductal dilation. Adrenals: No adrenal nodule. Kidneys and ureters: No hydronephrosis. No renal cystic lesion which requires follow up. Stable left renal simple cyst. No solid mass. Stomach, bowel and peritoneum: Distended stomach. There is segmental small bowel wall thickening, sli ghtly increased compared to prior CT 04/03/2023. Similar mild colonic wall thickening involving the de scending and sigmoid colon. Oral contrast opacifies the colon. Persistent small volume of free fluid around the liver and cul-de-sac. Lymph nodes: Enlarged mesenteric lymph nodes, similar to prior Vessels: No infrarenal aortic aneurysm. Aortobiiliac vascular calcifications. PELVIS Reproductive organs: Prostate is absent.. Bladder: Redemonstration of 2 bladder diverticula arising from the right bladder wall. Pelvic lymph nodes: No pelvic adenopathy by size criteria. Bones: Scoliosis. Severe degenerative disc disease. Bones appear demineralized. Other: Large fat-containing right inguinal hernia. IMPRESSION: Compared to prior CT 04/03/2023, there is persistent segmental small bowel and distal colonic wall thi ckening may reflect enterocolitis. Similar enlarged mesenteric lymph nodes may reflect infectious/inf lammatory etiology, however neoplasm cannot be excluded. Persistent small volume fluid in the abdomen and pelvis. Cholelithiasis without CT evidence of acute cholecystitis. Interval resolution of right pleural effusion and right basilar consolidation. Persistent 3 mm nodule in the right lower lobe. Reviewed by: Maryjane Yancey MD on 04/21/2023 8:27 PM PST Approved by: Maryjane Yancey MD on 04/21/2023 8:27 PM PST Station ID: [id number]
[2023-04-21] MEDS: oxyCODONE/ACET 5/325 Prepack 4 PO STA (21:09)
[2023-04-21] MEDS: metroNIDAZOLE 250 MG TABLET PO STA (21:09)
[2023-04-21 22:20] VITALS: BP 127/91; O2SAT 100
== END 2023-04-21 22:18 | disposition home or self-care (01) ==
LOC: EDUNIT# → ED 18:38
DX: K52.9 Noninfective gastroenteritis and colitis, unspecified (principal); R93.3 Abnormal findings on diagnostic imaging of other parts of digestive tract
CPT/HCPCS: 36415; 74176; 80053; 83690; 85025; 96374; 99284; A9270

== ENCOUNTER 2023-04-26 21:29 | Outpatient (CLI) | payer MEDICARE, OTHER | END 2023-04-26 23:59 | disposition critical access hospital (66) | LOC: EMS 21:29 | DX: S00.81XA Abrasion of other part of head, initial encounter (principal); W18.39XA Other fall on same level, initial encounter; Y93.01 Activity, walking, marching and hiking; Y92.511 Restaurant or cafe as the place of occurrence of the external cause; Z79.01 Long term (current) use of anticoagulants | CPT/HCPCS: A0425; A0429 ==

== ENCOUNTER 2023-04-26 22:10 | Emergency (ER) | payer MEDICARE, OTHER ==
--- NOTE | 2023-04-26 22:19 | ED Physician Documentation ---
PD HPI Fall - Stated complaint Stated Complaint: GLF - History obtained from History obtained from: Patient, EMS - Additional information Additional information: 77-year-old gentleman with history of A-fib on Eliquis. Of note I saw him about 4 to 5 days ago for abdominal pain, and he is much better now with the current treatment regimen as far as that goes. He went out to dinner [facility] and had a trip and fall coming out of the restaurant and felt forehead first onto the pavement. There is no loss of consciousness. He complains of a scrape on his forehead but no real headache, and some right-sided lower rib pain. He did not lose consciousness. He declined any pain medication on initial evaluation. PD PAST MEDICAL HISTORY - Past Medical History Cardiovascular: Hypertension Respiratory: None Neuro: None Endocrine/Autoimmune: None GI: Hemorrhoids : Other HEENT: Chronic vision loss Psych: None Musculoskeletal: None Derm: None - Past Surgical History Past Surgical History: Yes - Present Medications Home Medications: Ambulatory Orders Medication Instructions Recorded Confirmed Lisinopril [Zestril] 40 mg PO BID 01/21/23 04/26/23 Metoprolol Succinate 100 mg PO BID 01/21/23 04/26/23 Ondansetron Odt [Zofran] 4 mg TL Q6H PRN #14 tablet 04/03/23 oxyCODONE [Roxicodone] 5 mg PO Q4-6H PRN #14 tablet 04/03/23 04/26/23 Apixaban [Eliquis] 5 mg PO BID 04/19/23 04/26/23 Ondansetron Odt [Zofran Odt] 4 mg TL Q6H PRN 04/19/23 04/26/23 metroNIDAZOLE [Flagyl] 500 mg PO BID 7 Days #14 tablet 04/21/23 04/26/23 predniSONE [Deltasone] 4 tablet PO DAILY #40 tablet 04/21/23 04/26/23 - Allergies Allergies/Adverse Reactions: Allergies Allergy/AdvReac Type Severity Reaction Status Date / Time Iodinated Contrast Media Allergy Respiratory Verified 04/21/23 18:49 [Iodinated Contrast Media - Oral and] iodine Allergy Respiratory Verified 04/21/23 18:49 sodium phosphate AdvReac Nausea Verified 04/21/23 18:49 [From [employer]ema] - Social History Does the pt smoke?: No Smoking Status: Never smoker Does the pt drink ETOH?: No Does the pt have substance abuse?: Yes - Immunizations Immunizations are current?: No Immunizations: Other immun not current - POLST Patient has POLST: No POLST Status: Full Code PD ED PE NORMAL - Vitals Vital signs reviewed: Yes - General General: Alert and oriented X 3, No acute distress - HEENT HEENT: PERRL, EOMI, Other (2 shallow midline abrasions on the upper forehead) - Neck Neck: No bony TTP - Cardiac Cardiac: RRR, No murmur - Respiratory Respiratory: No respiratory distress, Clear bilaterally, Other (Tender about rib 10, anterior axillary line on the right.) - Abdomen Abdomen: Non tender - Neuro Neuro: Alert and oriented X 3, No motor deficit, No sensory deficit, Normal speech Eye Opening: Spontaneous Motor: Obeys Commands Verbal: Oriented GCS Score: 15 Results - Vitals Vitals: Vital Signs - 24 hr 04/26/23 04/26/23 04/27/23 22:22 23:47 01:00 Temperature 36.2 C L Heart Rate 76 90 78 Respiratory 16 15 16 Rate Blood Pressure 175/85 H 157/74 H 186/90 H O2 Saturation 100 100 100 04/27/23 02:11 Temperature Heart Rate 83 Respiratory 16 Rate Blood Pressure O2 Saturation 100 Oxygen O2 Source Room air PD Medical Decision Making - ED course ED course: 77-year-old gentleman had a mechanical ground-level fall and he is anticoagulated on Eliquis. He has a scrape on his forehead but no sign of severe injuries other than some rib pain low down anterior axillary line on the right. He was sent over for CT head, chest, C-spine. Care to Dr. Hogan at shift change pending results. Departure - Departure Disposition: 01 Home, Self Care Clinical Impression: Adequate anticoagulation on anticoagulant therapy, Metastatic disease Head injury Qualifiers: Encounter type: initial encounter Qualified Code(s): S09.90XA - Unspecified injury of head, initial encounter Forehead abrasion Qualifiers: Encounter type: initial encounter Qualified Code(s): S00.81XA - Abrasion of other part of head, initial encounter Chest wall contusion Qualifiers: Encounter type: initial encounter Laterality: right Qualified Code(s): S20.211A - Contusion of right front wall of thorax, initial encounter Condition: Stable Forms: PCP List Discharge Date/Time: 04/27/23 01:45
[2023-04-26 22:31] VITALS: O2SAT 100
--- NOTE | 2023-04-26 23:33 | ED Physician Documentation ---
ED Addendum - Addendum Addendum: 04/27/23 05:41 Patient endorsed to me by Dr. Colbert awaiting CT results. discussed findings with patient including potential metastatic cancer. plan to dc home with outpatient follow up. return precautions given. Disposition home Condition stable Impression 1. pulmonary nodules 2. metastatic disease 3. bone metastases 4. fall from standing
--- NOTE | 2023-04-26 23:44 | CT Report ---
PROCEDURE: Head WO INDICATIONS: head inj TECHNIQUE: Noncontrast 4.5 mm thick angled axial sections acquired from the foramen magnum to the vertex. For r adiation dose reduction, the following was used: automated exposure control, adjustment of mA and/or kV according to patient size. COMPARISON: None. FINDINGS: Image quality: Excellent. CSF spaces: Basal cisterns are patent. No extra-axial fluid collections. Ventricles are normal in size and shape. Brain: No midline shift. No intracranial masses or hemorrhage. Galvan-white matter interface is norm al. Skull and face: Calvarium and visualized facial bones are intact, without suspicious lesions. Sinuses: Visualized sinuses and mastoids are clear. IMPRESSION: No acute intracranial pathology. Reviewed by: Maryjane Yancey MD on 04/26/2023 11:43 PM PST Approved by: Maryjane Yancey MD on 04/26/2023 11:43 PM PST Station ID: [id number]
--- NOTE | 2023-04-26 23:57 | CT Report ---
PROCEDURE: Cervical Spine WO INDICATIONS: head inj TECHNIQUE: Noncontrast 3 mm thick sections acquired from the skull base to the T4 level. Sagittal and coronal r eformats were then constructed. For radiation dose reduction, the following was used: automated exp osure control, adjustment of mA and/or kV according to patient size. COMPARISON: None. FINDINGS: Image quality: Diagnostic. Bones: No fractures or dislocations. Visualized superior ribs are intact. There are multiple well- defined sclerotic lesions seen in the vertebral bodies. Soft tissues: Prevertebral soft tissues are normal in thickness. No paravertebral hematomas. No ap ical pneumothoraces. IMPRESSION: No acute fracture or traumatic subluxation. Multiple sclerotic foci throughout the cervical spine are indeterminate. Differential diagnostic cons iderations include benign etiologies such as bone islands, however osseous metastasis cannot be exclu ded. Correlate with history for malignancy. If clinically appropriate further evaluation with nonemer gent MRI can be performed. Reviewed by: Maryjane Yancey MD on 04/26/2023 11:56 PM PST Approved by: Maryjane Yancey MD on 04/26/2023 11:56 PM PST Station ID: [id number]
--- NOTE | 2023-04-27 00:09 | CT Report ---
PROCEDURE: Chest WO INDICATIONS: r chest inj TECHNIQUE: A CT scan of the chest was performed. Intravenous contrast media was not administered. Images were re corded and evaluated at appropriate window settings. Reformats: axial MIP of the chest, coronal and s agittal. For radiation dose reduction, the following was used: automated exposure control, adjustment of mA and/or kV according to patient size. COMPARISON: None. FINDINGS: Image quality: Diagnostic. Chest wall and lower neck: No thyroid nodule which requires sonographic follow up. No axillary or sup raclavicular adenopathy by size. Lungs and pleura: No consolidation. No pleural effusions. No pneumothorax. Scattered micronodules. Mediastinum: Heart size is normal. No pericardial effusion. No large vessel abnormality. No mediastin al adenopathy by size criteria. Bones: No acute rib fracture. No vertebral compression fracture. Multiple sclerotic site are seen, fo r example in the right lateral seventh rib, left posterior sixth rib, sternum and multiple cervical a nd thoracic vertebral bodies. Upper Abdomen: Cholelithiasis without acute inflammation. Remainder of visualized abdomen is unremark able for noncontrast exam. IMPRESSION: No acute rib fracture or vertebral body compression fracture. No traumatic injury to the chest is jennifer ntified. Scattered pulmonary sub-3 mm micronodules are indeterminate. Multiple sclerotic osseous lesions are seen in the ribs, sternum and cervical and thoracic spine. Fin dings are concerning for osseous metastasis. Correlate with history for malignancy. If clinically oren ropriate further evaluation with nonemergent MRI and/or biopsy can be performed. Reviewed by: Maryjane Yancey MD on 04/27/2023 12:07 AM [facility] Approved by: Maryjane Yancey MD on 04/27/2023 12:07 AM PST Station ID: [id number]
[2023-04-27 01:35] VITALS: BP 186/90
== END 2023-04-27 01:45 | disposition home or self-care (01) ==
LOC: EDUNIT# → ED 22:10
DX: S20.211A Contusion of right front wall of thorax, initial encounter (principal); S00.81XA Abrasion of other part of head, initial encounter; S09.90XA Unspecified injury of head, initial encounter; W01.0XXA Fall on same level from slipping, tripping and stumbling without subsequent striking against object, initial encounter; Y92.511 Restaurant or cafe as the place of occurrence of the external cause; R91.1 Solitary pulmonary nodule; C79.51 Secondary malignant neoplasm of bone; I48.91 Unspecified atrial fibrillation; Z79.01 Long term (current) use of anticoagulants; I10 Essential (primary) hypertension; Z79.899 Other long term (current) drug therapy
CPT/HCPCS: 99284

== ENCOUNTER 2023-04-30 08:06 | Outpatient (CLI) | payer MEDICARE, OTHER ==
[2023-04-30 14:31] LABS: BASOPHILS % (AUTO) 0.3 %; EOSINOPHILS % (AUTO) 0.7 %; HCT - HEMATOCRIT 35.3 % (42.0-52.0); HGB - HEMOGLOBIN 10.7 g/dL (14.0-18.0); LYMPHOCYTES % (AUTO) 6.9 %; MEAN CORPUSCULAR HEMOGLOBIN 30.4 pg (27.0-31.0); MEAN CORPUSCULAR HGB CONC 30.3 g/dL (32.0-36.0); MEAN CORPUSCULAR VOLUME 100.3 fL (80.0-94.0); MEAN PLATELET VOLUME 9.8 fL (7.4-11.4); MONOCYTES % (AUTO) 7.5 %; PLT - PLATELET COUNT 350 10^3/uL (130-450); RED BLOOD COUNT 3.52 10^6/uL (4.70-6.10); WHITE BLOOD COUNT 14.9 x10^3/uL (4.8-10.8)
[2023-04-30 14:55] LABS: ABNORMAL LYMPHS % (MANUAL) 0 %
[2023-04-30 15:08] LABS: ALBUMIN 2.9 g/dL (3.2-5.5); ALBUMIN/GLOBULIN RATIO 1.6 (1.0-2.2); BILIRUBIN,TOTAL 0.7 mg/dL (0.2-1.0); CALCIUM 8.7 mg/dL (8.5-10.3); CREATININE 0.9 mg/dL (0.6-1.3); POTASSIUM 3.6 mmol/L (3.5-4.5); TOTAL PROTEIN 4.7 g/dL (6.4-8.9)
[2023-04-30 16:32] LABS: BAND NEUTROPHILS % (MANUAL) 3 %; DIFFERENTIAL COMMENT MANUAL DIFFERENTIAL; EOSINOPHILS # (MANUAL) 0.4 10^3/uL (0-0.7); LYMPHOCYTES # (MANUAL) 1.3 10^3/uL (1.5-3.5); LYMPHOCYTES % (MANUAL) 8 %; MONOCYTES # (MANUAL) 0.7 10^3/uL (0.0-1.0); NEUTROPHILS # (MANUAL) 12.4 10^3/uL (1.5-6.6); PLATELET ESTIMATE, MANUAL NORMAL (130-450,000) (NORMAL); PLATELET MORPHOLOGY 1+ GIANT PLATELETS (NORMAL); RBC MORPHOLOGY (MULTIPLE) NORMAL APPEARANCE (NORMAL); REACTIVE LYMPHS % (MANUAL) 1 %
== END 2023-04-30 08:07 | disposition home or self-care (01) ==
LOC: LAB.S 08:06
PROVIDERS: ATTEND Internal Medicine Medical Oncology
DX: C61 Malignant neoplasm of prostate (principal)
CPT/HCPCS: 36415; 80053; 84153; 84402; 84403; 85025

== ENCOUNTER 2023-05-15 11:47 | Outpatient (CLI) | payer MEDICARE, OTHER ==
[2023-05-15 15:46] LABS: CRP - C-REACTIVE PROTEIN 2.9 mg/dL (<0.5)
== END 2023-05-15 11:48 | disposition home or self-care (01) ==
LOC: LAB.S 11:47
PROVIDERS: ATTEND Internal Medicine Gastroenterology
DX: K56.600 Partial intestinal obstruction, unspecified as to cause (principal)
CPT/HCPCS: 36415; 82378; 82607; 83880; 86140

== ENCOUNTER 2023-05-20 13:08 | Outpatient (CLI) | payer MEDICARE, OTHER | END 2023-05-20 23:59 | disposition critical access hospital (66) | LOC: EMS 13:08 | DX: R53.1 Weakness (principal) | CPT/HCPCS: A0425; A0429 ==

== ENCOUNTER 2023-05-20 13:45 | Emergency (ER) | payer MEDICARE, OTHER ==
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
[2023-05-20 15:14] LABS: BASOPHILS % (AUTO) 0.2 %; EOSINOPHILS % (AUTO) 0.2 %; HCT - HEMATOCRIT 30.9 % (42.0-52.0); LYMPHOCYTES # (AUTO) 0.6 10^3/uL (1.5-3.5); LYMPHOCYTES % (AUTO) 7.5 %; MEAN CORPUSCULAR HEMOGLOBIN 31.3 pg (27.0-31.0); MEAN CORPUSCULAR HGB CONC 32.4 g/dL (32.0-36.0); MEAN CORPUSCULAR VOLUME 96.9 fL (80.0-94.0); MEAN PLATELET VOLUME 9.2 fL (7.4-11.4); MONOCYTES # (AUTO) 0.9 10^3/uL (0.0-1.0); MONOCYTES % (AUTO) 10.9 %; NEUTROPHILS # (AUTO) 6.5 10^3/uL (1.5-6.6); PLT - PLATELET COUNT 323 10^3/uL (130-450); RED BLOOD COUNT 3.19 10^6/uL (4.70-6.10); RED CELL DISTRIBUTION WIDTH 13.1 % (12.0-15.0); WHITE BLOOD COUNT 8.1 x10^3/uL (4.8-10.8)
[2023-05-20 15:25] LABS: ALBUMIN 2.8 g/dL (3.2-5.5); ALBUMIN/GLOBULIN RATIO 1.5 (1.0-2.2); BILIRUBIN,TOTAL 0.6 mg/dL (0.2-1.0); CREATININE 0.6 mg/dL (0.6-1.3); MAGNESIUM 1.5 mg/dL (1.7-2.3); POTASSIUM 2.9 mmol/L (3.5-4.5); TOTAL PROTEIN 4.7 g/dL (6.4-8.9)
[2023-05-20 16:01] LABS: BILIRUBIN,URINE NEGATIVE (NEGATIVE); GLUCOSE, URINE (UA) NEGATIVE (NEGATIVE); KETONES,URINE (UA) NEGATIVE (NEGATIVE); LEUKOCYTE ESTERASE, URINE NEGATIVE (NEGATIVE); NITRITE,URINE NEGATIVE (NEGATIVE); OCCULT BLOOD,URINE NEGATIVE (NEGATIVE); PROTEIN,URINE NEGATIVE (NEGATIVE); UROBILINOGEN,URINE 1 (NORMAL) E.U./dL (NORMAL)
[2023-05-20 16:04] LABS: CLARITY,URINE CLEAR (CLEAR)
[2023-05-20] MEDS: POTASSIUM CHLORIDE 20 MEQ TABLET PO STA (17:11)
[2023-05-20] MEDS: MAGNESIUM OXIDE 400 MG TABLET PO STA (17:12)
[2023-05-20 17:39] VITALS: BP 167/86; O2SAT 98
== END 2023-05-20 18:07 | disposition home or self-care (01) ==
LOC: EDUNIT# → ED 13:45
DX: R62.7 Adult failure to thrive (principal); E87.6 Hypokalemia; E83.42 Hypomagnesemia; I10 Essential (primary) hypertension
CPT/HCPCS: 36415; 80053; 81003; 83735; 85025; 93005; 99284; A9270; 81001; 87086

== ENCOUNTER 2023-06-02 20:42 | Outpatient (CLI) | payer MEDICARE, OTHER | END 2023-06-02 20:43 | disposition critical access hospital (66) | LOC: EMS 20:42 | DX: T40.2X2A Poisoning by other opioids, intentional self-harm, initial encounter (principal); Y92.009 Unspecified place in unspecified non-institutional (private) residence as the place of occurrence of the external cause | CPT/HCPCS: A0425; A0427 ==

== ENCOUNTER 2023-06-02 21:20 | Emergency (ER) | payer MEDICARE, OTHER ==
[2023-06-02 21:45] LABS: BASOPHILS % (AUTO) 0.3 %; EOSINOPHILS % (AUTO) 0.2 %; HGB - HEMOGLOBIN 9.7 g/dL (14.0-18.0); LYMPHOCYTES # (AUTO) 0.7 10^3/uL (1.5-3.5); LYMPHOCYTES % (AUTO) 6.7 %; MEAN CORPUSCULAR HEMOGLOBIN 31.6 pg (27.0-31.0); MEAN CORPUSCULAR HGB CONC 31.3 g/dL (32.0-36.0); MEAN PLATELET VOLUME 9.1 fL (7.4-11.4); MONOCYTES # (AUTO) 1.2 10^3/uL (0.0-1.0); MONOCYTES % (AUTO) 12.4 %; NEUTROPHILS # (AUTO) 7.8 10^3/uL (1.5-6.6); NEUTROPHILS % (AUTO) 79.7 %; PLT - PLATELET COUNT 310 10^3/uL (130-450); RED BLOOD COUNT 3.07 10^6/uL (4.70-6.10); RED CELL DISTRIBUTION WIDTH 13.4 % (12.0-15.0); WHITE BLOOD COUNT 9.8 x10^3/uL (4.8-10.8)
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
[2023-06-02 22:25] LABS: THYROID STIMULATING HORMONE 2.95 uIU/mL (0.34-5.60)
[2023-06-02 22:52] LABS: ACETAMINOPHEN 0.2 ug/mL; ALBUMIN/GLOBULIN RATIO 1.6 (1.0-2.2); ALKALINE PHOSPHATASE 41 IU/L (42-121); ALT ALANINE AMINOTRANSFERASE 7 IU/L (10-60); AST ASPARTATE AMINOTRANSFERASE 12 IU/L (10-42); BILIRUBIN,TOTAL 0.4 mg/dL (0.2-1.0); BUN - BLOOD UREA NITROGEN 21 mg/dL (6-20); CALCIUM 8.7 mg/dL (8.5-10.3); CARBON DIOXIDE - CO2 22 mmol/L (21-32); CHLORIDE 104 mmol/L (101-111); CK- CREATINE KINASE 38 IU/L (30-223); CREATININE 0.7 mg/dL (0.6-1.3); ETOH - ETHANOL 21.4 mg/dL; GFR - MDRD 110 (>89); GLUCOSE 104 mg/dL (74-104); LIPASE 24 U/L (11-82); MAGNESIUM 1.6 mg/dL (1.7-2.3); POTASSIUM 3.9 mmol/L (3.5-4.5); SODIUM 137 mmol/L (135-145); TOTAL PROTEIN 4.9 g/dL (6.4-8.9)
[2023-06-02 22:53] LABS: SALICYLATE < 1.5 mg/dL
[2023-06-03] MEDS: NALOXONE 0.4 MG/ML VIAL IVP STA (00:46)
[2023-06-03 05:02] LABS: BILIRUBIN,URINE NEGATIVE (NEGATIVE); GLUCOSE, URINE (UA) NEGATIVE (NEGATIVE); KETONES,URINE (UA) NEGATIVE (NEGATIVE); LEUKOCYTE ESTERASE, URINE NEGATIVE (NEGATIVE); NITRITE,URINE NEGATIVE (NEGATIVE); OCCULT BLOOD,URINE LARGE (NEGATIVE); PROTEIN,URINE NEGATIVE (NEGATIVE); UROBILINOGEN,URINE 1 (NORMAL) E.U./dL (NORMAL)
[2023-06-03 05:39] LABS: BACTERIA,URINE Rare /HPF (None Seen); CLARITY,URINE CLOUDY (CLEAR); RBC,URINE TNTC /HPF (0-5); SQUAMOUS EPITHELIAL CELL,UR FEW Squamous (<= Few); WBC,URINE 0-3 /HPF (0-3)
[2023-06-03 05:40] LABS: AMPHETAMINE SCREEN,URINE NEGATIVE (NEGATIVE); BARBITURATE SCREEN,UR POSITIVE (NEGATIVE); BENZODIAZEPINES SCREEN, URINE NEGATIVE (NEGATIVE); BUPRENORPHINE SCREEN, URINE NEGATIVE (NEGATIVE); COCAINE SCREEN URINE NEGATIVE (NEGATIVE); METHADONE SCREEN, URINE NEGATIVE (NEGATIVE); METHAMPHETAMINES SCREEN, URINE NEGATIVE (NEGATIVE); OPIATE SCREEN, URINE NEGATIVE (NEGATIVE); OXYCODONE SCREEN, URINE POSITIVE (NEGATIVE); THC CANNABINOID SCREEN, URINE NEGATIVE (NEGATIVE); TRICYCLIC ANTIDEPRESSANT,URINE NEGATIVE (NEGATIVE)
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
[2023-06-03] MEDS: MAGNESIUM OXIDE 400 MG TABLET PO ONE (08:31)
[2023-06-03] MEDS: LIDOCAINE 2% URO-JET 5 ML SYRINGE UR STA (10:19)
--- NOTE | 2023-06-03 13:27 | PHARMACY PROGRESS NOTE ---
- Best Possible Medication History Admit Date and Time: Processed by: Nursing Medications reviewed in ED?: Yes Medication History completed: Yes Secondary Source(s): Insurance records As the person ultimately responsible for medication therapy, providers are able to order a medication from an existing home medication list in [facility] via the "Reconcile Routine" prior to Confirmation of that medication by academic support specialist. Such practice is discouraged except when the physician, in their clinical judgment, deems that a medical need exists for a medication without regard to previous use.
--- NOTE | 2023-06-03 14:47 | ED Physician Documentation ---
ED Addendum - Addendum Addendum: 06/03/23 14:45 The patient was evaluated by telepsych. They felt that he was concerning due to his inability to give a clear safety plan and his issues with the interactions with his which is where he would be going back. He declined other alternative setting such as respite. Social work Savanah talked with him as well with a similar conclusion. He is not suicidal expression at this time. Impression was more of an impulsive overdose last night. However the consensus was to have the MHP/DCR evaluate the patient to see if he needed involuntary or if you was deemed not at risk enough for that. DCR evaluation at this point is still pending.
[2023-06-03] MEDS: ACETAMINOPHEN 325 MG TABLET PO STA (23:59)
--- NOTE | 2023-06-04 05:09 | ED Physician Documentation ---
ED Addendum - Addendum Addendum: Patient received in signout at shift change. Patient was seen by DCR and they do not plan to detain him at this time. He will continue to board in the emergency department overnight pending further conversations with social work. Social work is working towards a safe disposition. Home medications have been ordered. Patient signed out at shift change.
[2023-06-04] MEDS: ACETAMINOPHEN 325 MG TABLET PO STA (06:36)
[2023-06-04] MEDS ORDERED: ACETAMINOPHEN 500 MG TABLET PO PRN (06:50)
[2023-06-04] MEDS: DULoxetine 30 MG CAPSULE PO SCH (09:09)
[2023-06-04] MEDS: lisinopriL 20 MG TABLET PO SCH (09:09)
[2023-06-04] MEDS: PANTOPRAZOLE 40 MG TABLET PO STA (09:10)
[2023-06-04] MEDS: METOPROLOL SUCCINATE 50 MG TABLET PO SCH (09:10)
[2023-06-04] MEDS: APIXABAN 5 MG TABLET PO SCH (09:11)
[2023-06-04] MEDS: PANTOPRAZOLE 40 MG TABLET PO SCH (09:13)
[2023-06-04] MEDS: oxyCODONE 5 MG TABLET PO PRN (14:35)
--- NOTE | 2023-06-04 14:49 | ED Physician Documentation ---
ED Addendum - Addendum Addendum: 06/04/23 14:48 The DCR had seen the patient overnight her last evening and did not feel he was detainable. Social work talked with the patient and his this morning. His is going to pack some belongings and stay with a friend so they will not be at the same place. The patient has been receiving his usual medications. Social work Savanah did arrange a safe disposition for the patient. He has difficulty with mobilization so we will get a taxi ride home. The patient is understanding of the plan. His main issue with home was that his would be there and that has been mitigated. Disposition: The patient is discharged home in stable condition.
[2023-06-04 16:38] VITALS: BP 165/85; O2SAT 100
== END 2023-06-04 16:40 | disposition home or self-care (01) ==
LOC: ED 21:20
DX: T40.2X2A Poisoning by other opioids, intentional self-harm, initial encounter (principal); F43.21 Adjustment disorder with depressed mood; Z63.0 Problems in relationship with spouse or partner; I48.91 Unspecified atrial fibrillation; D64.9 Anemia, unspecified; I10 Essential (primary) hypertension; Z86.03 Personal history of neoplasm of uncertain behavior; Z11.52 Encounter for screening for COVID-19
CPT/HCPCS: 36415; 80053; 80143; 80306; 81001; 82550; 82607; 82746; 83690; 83735; 84443; 85025; 87635; 93005; 96374; 99284; A9270; G0427; G0480; Q3014; 80179; 81003; 82077; 87086

== ENCOUNTER 2023-06-25 08:00 | Outpatient (CLI) | payer MEDICARE, OTHER ==
[2023-06-25 12:26] LABS: BASOPHILS % (AUTO) 0.3 %; EOSINOPHILS % (AUTO) 0.3 %; HCT - HEMATOCRIT 34.6 % (42.0-52.0); HGB - HEMOGLOBIN 10.8 g/dL (14.0-18.0); LYMPHOCYTES # (AUTO) 0.9 10^3/uL (1.5-3.5); LYMPHOCYTES % (AUTO) 14.7 %; MEAN CORPUSCULAR HEMOGLOBIN 31.2 pg (27.0-31.0); MEAN CORPUSCULAR HGB CONC 31.2 g/dL (32.0-36.0); MEAN PLATELET VOLUME 9.4 fL (7.4-11.4); MONOCYTES # (AUTO) 0.7 10^3/uL (0.0-1.0); MONOCYTES % (AUTO) 11.7 %; NEUTROPHILS # (AUTO) 4.4 10^3/uL (1.5-6.6); PLT - PLATELET COUNT 341 10^3/uL (130-450); RED BLOOD COUNT 3.46 10^6/uL (4.70-6.10); RED CELL DISTRIBUTION WIDTH 13.2 % (12.0-15.0); WHITE BLOOD COUNT 6.1 x10^3/uL (4.8-10.8)
[2023-06-25 12:40] LABS: ALBUMIN/GLOBULIN RATIO 1.4 (1.0-2.2); BILIRUBIN,TOTAL 0.4 mg/dL (0.2-1.0); CREATININE 0.7 mg/dL (0.6-1.3); POTASSIUM 3.8 mmol/L (3.5-4.5); TOTAL PROTEIN 5.1 g/dL (6.4-8.9)
== END 2023-06-25 23:59 | disposition home or self-care (01) ==
LOC: LAB 08:00
PROVIDERS: ATTEND Internal Medicine Medical Oncology
DX: C61 Malignant neoplasm of prostate (principal)
CPT/HCPCS: 36415; 80053; 84153; 84402; 84403; 85025

== ENCOUNTER 2023-06-25 10:39 | Outpatient (CLI) | payer MEDICARE, OTHER | END 2023-06-25 23:59 | disposition critical access hospital (66) | LOC: EMS 10:39 | DX: F10.90 Alcohol use, unspecified, uncomplicated (principal); R45.851 Suicidal ideations; M79.89 Other specified soft tissue disorders; H55.00 Unspecified nystagmus | CPT/HCPCS: A0425; A0429 ==

== ENCOUNTER 2023-06-25 11:17 | Emergency (ER) | payer MEDICARE, OTHER ==
--- NOTE | 2023-06-25 11:41 | ED Physician Documentation ---
History of Present Illness - Stated complaint Stated Complaint: SI - Chief complaint Chief Complaint: MHE - Additonal information Additional information: 77-year-old male with prostate cancer with mets presents emergency department via EMS for concerns of mental health. Patient has been to this emergency department multiple times and usually his complaint is marital strife. Patient reports that his moved out last night that was the first night that he had slept separately had a bad dream and he called her and because she refused to come home (after he is asked her multiple times to move out) patient started threatening to drink. Patient said that he had 2 ounces of tequila DCR was dispatched and at that point in time for unknown reasons the police were then there. Please brought patient into the emergency department because patient reports that he missed a blood test. Patient attempts to go into great detail about his marital issues and as asking me if I can get mental health support for his and to get her hospitalized for her mental illnesses. Patient goes on long rants about his and their unhealthy marriage and then asked me if I can help them get back together. He adamantly denies any suicidal homicidal ideation he says currently he has no medical illnesses or needs that he is seeking medical attention for. was possibly concerned that maybe patient is intoxicated patient denies being into xicated and does not appear to be intoxicated. I have not spoken with patient's at this point in time. PD PAST MEDICAL HISTORY - Past Medical History Past Medical History: Yes Cardiovascular: Hypertension, Atrial fibrillation Respiratory: None Neuro: None Endocrine/Autoimmune: None GI: Hemorrhoids : Other HEENT: Chronic vision loss Psych: Depression Musculoskeletal: None Derm: None - Past Surgical History Past Surgical History: Yes - Present Medications Home Medications: Ambulatory Orders Medication Instructions Recorded Confirmed Lisinopril [Zestril] 20 mg PO BID 01/21/23 06/04/23 oxyCODONE [Roxicodone] 5 mg PO Q4-6H PRN #14 tablet 04/03/23 06/02/23 Apixaban [Eliquis] 5 mg PO BID 04/19/23 06/03/23 predniSONE [Deltasone] 4 tablet PO DAILY #40 tablet 04/21/23 06/02/23 DULoxetine [Cymbalta] 30 mg PO DAILY 06/02/23 06/02/23 Metoprolol Succinate [Toprol Xl] 50 mg PO BID 06/04/23 06/04/23 - Allergies Allergies/Adverse Reactions: Allergies Allergy/AdvReac Type Severity Reaction Status Date / Time Iodinated Contrast Media Allergy Respiratory Verified 06/25/23 11:25 [Iodinated Contrast Media - Oral and] iodine Allergy Respiratory Verified 06/25/23 11:25 sodium phosphate AdvReac Nausea Verified 06/25/23 11:25 [From Fleet Enema] - Social History Does the pt smoke?: No Smoking Status: Never smoker Does the pt drink ETOH?: Yes Does the pt have substance abuse?: Yes - Immunizations Immunizations are current?: No Immunizations: Other immun not current - POLST Patient has POLST: No POLST Status: Full Code PD ED PE NORMAL - Vitals Vital signs reviewed: Yes - General General: Alert and oriented X 3, No acute distress, Well developed/nourished - HEENT HEENT: Atraumatic, PERRL, EOMI, Moist mucous membranes - Cardiac Cardiac: RRR - Respiratory Respiratory: No respiratory distress - Abdomen Abdomen: Normal bowel sounds - Back Back: No CVA TTP - Derm Derm: Warm and dry, No rash, Other (pale) - Extremities Extremities: No edema - Neuro Neuro: Alert and oriented X 3, energy control officer 2-12 intact, No motor deficit, No sensory deficit, Normal speech PD ED PE EXPANDED - Psych Psych: Depressed, Agitated, Flight of ideas. No: Suicidal, Homicidal, Tearful, Withdrawn, Poor eye contact, Non verbal, Anxious, Pressured speech, Auditory hallucinations, Visual hallucinations, Tactile hallucinations Results - Vitals Vitals: Vital Signs - 24 hr 06/25/23 06/25/23 06/25/23 11:25 13:31 15:00 Temperature 36.3 C L 36.4 C L Heart Rate 59 L 70 70 Respiratory 14 16 16 Rate Blood Pressure 120/53 L 150/78 H 150/90 H O2 Saturation 96 95 98 06/25/23 20:25 Temperature Heart Rate 70 Respiratory 16 Rate Blood Pressure 150/98 H O2 Saturation 97 Oxygen O2 Source Room air - Labs Labs: Laboratory Tests 06/25/23 06/25/23 06/25/23 12:00 12:00 14:00 Magnesium 1.9 Total Creatine Kinase 30 Lipase 45 TSH 2.53 Urine Color Urine Clarity Urine pH Ur Specific [place] Urine Protein Urine Glucose (UA) Urine Ketones Urine Occult Blood Urine Nitrite Urine Bilirubin Urine Urobilinogen Ur Leukocyte Esterase Ur Microscopic Review Urine Culture Comments Nasal Adenovirus (PCR) NOT DETECTED Nasal B. parapertussis DNA (PCR) NOT DETECTED Nasal Coronavir 229E PCR NOT DETECTED Nasal Coronavir HKU1 PCR NOT DETECTED Nasal Coronavir NL63 PCR NOT DETECTED Nasal Coronavir OC43 PCR NOT DETECTED Nasal Enterovir/Rhinovir PCR NOT DETECTED Nasal Influenza B PCR NOT DETECTED Nasal Influenza A PCR NOT DETECTED Nasal Parainfluen 1 PCR NOT DETECTED Nasal Parainfluen 2 PCR NOT DETECTED Nasal Parainfluen 3 PCR NOT DETECTED Nasal Parainfluen 4 PCR NOT DETECTED Nasal RSV (PCR) NOT DETECTED Nasal B.pertussis DNA PCR NOT DETECTED Nasal C.pneumoniae (PCR) NOT DETECTED Julius Human Metapneumo PCR NOT DETECTED Nasal M.pneumoniae (PCR) NOT DETECTED Nasal SARS-CoV-2 (PCR) NOT DETECTED Salicylates < 1.5 Urine Opiates Screen Ur Buprenorphine Scrn Ur Oxycodone Screen Urine Methadone Screen Acetaminophen 0.3 Ur Barbiturates Screen Ur Tricyclics Screen Ur Phencyclidine Scrn Ur Amphetamine Screen U Methamphetamines Scrn U Benzodiazepines Scrn Urine Cocaine Screen U Cannabinoids Screen Ur Drug Screen Comment Ethyl Alcohol 104.4 103.7 06/25/23 17:00 Magnesium Total Creatine Kinase Lipase TSH Urine Color YELLOW Urine Clarity CLEAR Urine pH 8.0 H Ur Specific [place] 1.010 Urine Protein NEGATIVE Urine Glucose (UA) NEGATIVE Urine Ketones NEGATIVE Urine Occult Blood NEGATIVE Urine Nitrite NEGATIVE Urine Bilirubin NEGATIVE Urine Urobilinogen 4 H Ur Leukocyte Esterase NEGATIVE Ur Microscopic Review NOT INDICATED Urine Culture Comments NOT INDICATED Nasal Adenovirus (PCR) Nasal B. parapertussis DNA (PCR) Nasal Coronavir 229E PCR Nasal Coronavir HKU1 PCR Nasal Coronavir NL63 PCR Nasal Coronavir OC43 PCR Nasal Enterovir/Rhinovir PCR Nasal Influenza B PCR Nasal Influenza A PCR Nasal Parainfluen 1 PCR Nasal Parainfluen 2 PCR Nasal Parainfluen 3 PCR Nasal Parainfluen 4 PCR Nasal RSV (PCR) Nasal B.pertussis DNA PCR Nasal C.pneumoniae (PCR) Julius Human Metapneumo PCR Nasal M.pneumoniae (PCR) Nasal SARS-CoV-2 (PCR) Salicylates Urine Opiates Screen NEGATIVE Ur Buprenorphine Scrn NEGATIVE Ur Oxycodone Screen NEGATIVE Urine Methadone Screen NEGATIVE Acetaminophen Ur Barbiturates Screen POSITIVE H Ur Tricyclics Screen NEGATIVE Ur Phencyclidine Scrn NEGATIVE Ur Amphetamine Screen NEGATIVE U Methamphetamines Scrn NEGATIVE U Benzodiazepines Scrn NEGATIVE Urine Cocaine Screen NEGATIVE U Cannabinoids Screen NEGATIVE Ur Drug Screen Comment CUTOFF CONC BELOW: Ethyl Alcohol PD Medical Decision Making - ED course ED course: 77-year-old male presents emergency department for workup patient states marital crises. Patient denies suicidal homicidal ideation but unfortunately older adult social work specialist has contact with DCR and given that patient has called multiple other people collaterally and told them that he is having suicidal ideation with a plan we have to go through the proper steps to medically clear patient for DCR evaluation. Labs were completed on the patient there were no acute abnormalities or findings including urinalysis. EtOH level was found to be 103.7. Patient had no slurred speech did not appear intoxicated. DCR came to evaluate the patient unfortunately I did not get to talk to DCR prior to them leaving but at this point in time it does not sound as if the DCR Is declining to accept the patient as patient does not meet criteria he continues to deny any suicidal homicidal ideation. Patient was told to follow- up with the older adult social work specialist at [facility] for further support and resources for his ongoing separation from his . Patient continues to ask for marital support and helping numerous different staff members to help repair his marriage. Patient was informed that we are here to help with his mental health needs if needed and he continues to ask us to hospitalize his for her mental illness. Given that patient was observed in the emergency department for over 8 hours and has ongoingly and continuously denied any suicidal homicidal ideation I am unable to continue to hospitalize the patient at this point in time. He is safe for discharge she is calling a taxi to bring him home and he was given resources with how to manage his stress at home. Departure - Departure Disposition: Home, Self Care Clinical Impression: Mental health disorder, Ineffective coping Condition: Stable Instructions: ED Stress React, ED Depression Comments: Going home and is very important that you are finding healthy coping skills to manage with your new separation from your . You can follow-up with your older adult social work specialist with [facility] to see if they have any inpatient recommendations for your mental health struggles that you are dealing with right now. Please come back to the emergency department if you are starting to develop any worsening suicidal ideation and I would strongly recommend calling [phone] if you are having any suicidal or mental health concerns. Forms: PCP List Discharge Date/Time: 06/25/23 20:15
[2023-06-25 13:10] LABS: ACETAMINOPHEN 0.3 ug/mL; CK- CREATINE KINASE 30 IU/L (30-223); ETOH - ETHANOL 103.7 mg/dL; LIPASE 45 U/L (11-82); MAGNESIUM 1.9 mg/dL (1.7-2.3)
[2023-06-25 13:24] LABS: THYROID STIMULATING HORMONE 2.53 uIU/mL (0.34-5.60)
[2023-06-25 13:33] LABS: SALICYLATE < 1.5 mg/dL
[2023-06-25 15:10] LABS: B. PARAPERTUSSIS- RESP PCR PAN NOT DETECTED; B. PERTUSSIS- RESP PCR PANEL NOT DETECTED; C. PNEUMONIAE- RESP PCR PANEL NOT DETECTED; CORONAVIRUS 229E-RESP PCR NOT DETECTED; CORONAVIRUS HKU1-RESP PCR NOT DETECTED; CORONAVIRUS NL63-RESP PCR NOT DETECTED; CORONAVIRUS OC43-RESP PCR NOT DETECTED; HUMAN METAPNEUMOVIRUS NOT DETECTED; INFLUENZA A- RESP PCR PANEL NOT DETECTED; INFLUENZA B - RESP PCR PANEL NOT DETECTED; M. PNEUMONIAE- RESP PCR PANEL NOT DETECTED; PARAINFLUENZA VIRUS 1 NOT DETECTED; PARAINFLUENZA VIRUS 2 NOT DETECTED; PARAINFLUENZA VIRUS 3 NOT DETECTED; PARAINFLUENZA VIRUS 4 NOT DETECTED; RHINOVIRUS/ENTEROVIRUS NOT DETECTED; RSV- RESP PCR PANEL NOT DETECTED; SARS-CoV-2 -RESP PCR PANEL NOT DETECTED
[2023-06-25 17:10] LABS: BILIRUBIN,URINE NEGATIVE (NEGATIVE); GLUCOSE, URINE (UA) NEGATIVE (NEGATIVE); KETONES,URINE (UA) NEGATIVE (NEGATIVE); LEUKOCYTE ESTERASE, URINE NEGATIVE (NEGATIVE); NITRITE,URINE NEGATIVE (NEGATIVE); OCCULT BLOOD,URINE NEGATIVE (NEGATIVE); PROTEIN,URINE NEGATIVE (NEGATIVE); UROBILINOGEN,URINE 4 E.U./dL (NORMAL)
[2023-06-25 17:11] LABS: CLARITY,URINE CLEAR (CLEAR)
[2023-06-25 17:19] LABS: BARBITURATE SCREEN,UR POSITIVE (NEGATIVE); THC CANNABINOID SCREEN, URINE NEGATIVE (NEGATIVE)
[2023-06-25 17:20] LABS: AMPHETAMINE SCREEN,URINE NEGATIVE (NEGATIVE); BENZODIAZEPINES SCREEN, URINE NEGATIVE (NEGATIVE); BUPRENORPHINE SCREEN, URINE NEGATIVE (NEGATIVE); COCAINE SCREEN URINE NEGATIVE (NEGATIVE); METHADONE SCREEN, URINE NEGATIVE (NEGATIVE); METHAMPHETAMINES SCREEN, URINE NEGATIVE (NEGATIVE); OPIATE SCREEN, URINE NEGATIVE (NEGATIVE); OXYCODONE SCREEN, URINE NEGATIVE (NEGATIVE); TRICYCLIC ANTIDEPRESSANT,URINE NEGATIVE (NEGATIVE)
[2023-06-25 20:28] VITALS: BP 150/98; O2SAT 97
== END 2023-06-25 20:15 | disposition home or self-care (01) ==
LOC: EDUNIT# → ED 11:17 → SUPCPDRO 11:17 → ED 20:15
DX: R45.851 Suicidal ideations (principal); C61 Malignant neoplasm of prostate; I10 Essential (primary) hypertension; I48.91 Unspecified atrial fibrillation; Z79.01 Long term (current) use of anticoagulants; Z63.0 Problems in relationship with spouse or partner; Z11.52 Encounter for screening for COVID-19
CPT/HCPCS: 36415; 80143; 80306; 81003; 82550; 83690; 83735; 84443; 87633; 99283; 99285; G0480; 80053; 80179; 81001; 82077; 84153; 84402; 84403; 85025; 87086

== ENCOUNTER 2023-07-11 12:00 | Outpatient (CLI) | payer MEDICARE, OTHER | END 2023-07-11 23:59 | disposition home or self-care (01) | LOC: PC 12:00 | PROVIDERS: ATTEND Nurse Practitioner Gerontology | DX: Z51.5 Encounter for palliative care (principal); C61 Malignant neoplasm of prostate; C79.51 Secondary malignant neoplasm of bone; R10.9 Unspecified abdominal pain; G89.29 Other chronic pain; R60.0 Localized edema; F41.9 Anxiety disorder, unspecified; K59.04 Chronic idiopathic constipation; Z71.89 Other specified counseling; Z66 Do not resuscitate | CPT/HCPCS: 99345 ==

== ENCOUNTER 2023-07-25 08:00 | Outpatient (CLI) | payer MEDICARE, OTHER | END 2023-07-25 23:59 | disposition home or self-care (01) | LOC: PC 08:00 | PROVIDERS: ATTEND Nurse Practitioner Gerontology | DX: Z51.5 Encounter for palliative care (principal); C61 Malignant neoplasm of prostate; C79.51 Secondary malignant neoplasm of bone; I10 Essential (primary) hypertension; I87.2 Venous insufficiency (chronic) (peripheral); K59.04 Chronic idiopathic constipation; R60.0 Localized edema; Z79.52 Long term (current) use of systemic steroids | CPT/HCPCS: 99215 ==

== ENCOUNTER 2023-08-06 12:37 | Outpatient (CLI) | payer MEDICARE, OTHER ==
--- NOTE | 2023-08-06 20:50 | DEXA Report ---
PROCEDURE: Dexa Spine and/or Hip INDICATIONS: GROUP HOME STEROID USE TECHNIQUE: Dual energy x-ray absorptiometry (DXA) was performed on a Reconnex System. Regions measur ed are the AP Spine, femoral neck, and if needed forearm. COMPARISON: None. FINDINGS: Lumbar Spine: L1-L4 (L3) Bone Mineral Density: 1.137 g/cm/cm, T score: -0.6. Left Femoral Neck: Bone Mineral Density: 0.778 g/cm/cm, T score: -2.2. Left Hip: Bone Mineral Density: 0.805 g/cm/cm, T score: -2.1. (T score greater or equal to -1.0: NORMAL) (T score from -1.1 to -2.4: OSTEOPENIA) (T score less than or equal to -2.5 to: OSTEOPOROSIS) Impression: By WHO criteria, this patient has low bone density (osteopenia). Patients with diagnosis of osteoporosis or osteopenia should have regular bone mineral density assess ment. For those eligible for Medicare, routine testing is allowed once every 2 years. Testing frequ ency can be increased for patients who have rapidly progressing disease or for those who are receivin g medical therapy to restore bone mass. Reviewed by: Chai Hernandez MD on 08/06/2023 8:49 PM PDT Approved by: Chai Hernandez MD on 08/06/2023 8:49 PM PDT Station ID: [id number]
== END 2023-08-06 12:38 | disposition home or self-care (01) ==
LOC: DI 12:37
PROVIDERS: ATTEND Internal Medicine Gastroenterology
DX: M85.89 Other specified disorders of bone density and structure, multiple sites (principal); Z79.52 Long term (current) use of systemic steroids

== ENCOUNTER 2023-08-07 08:00 | Outpatient (CLI) | payer MEDICARE, OTHER | END 2023-08-07 23:59 | disposition home or self-care (01) | LOC: PC 08:00 | PROVIDERS: ATTEND Nurse Practitioner Gerontology | DX: Z51.5 Encounter for palliative care (principal); R11.0 Nausea; M85.80 Other specified disorders of bone density and structure, unspecified site; R60.9 Edema, unspecified; C61 Malignant neoplasm of prostate; C79.51 Secondary malignant neoplasm of bone | CPT/HCPCS: 99350 ==

== ENCOUNTER 2023-08-16 13:08 | Outpatient (CLI) | payer MEDICARE, OTHER ==
[2023-08-16 20:03] LABS: BASOPHILS % (AUTO) 0.3 %; EOSINOPHILS # (AUTO) 0.1 10^3/uL (0.0-0.7); EOSINOPHILS % (AUTO) 0.7 %; HCT - HEMATOCRIT 35.3 % (42.0-52.0); HGB - HEMOGLOBIN 10.7 g/dL (14.0-18.0); LYMPHOCYTES % (AUTO) 10.7 %; MEAN CORPUSCULAR HEMOGLOBIN 31.3 pg (27.0-31.0); MEAN CORPUSCULAR HGB CONC 30.3 g/dL (32.0-36.0); MEAN CORPUSCULAR VOLUME 103.2 fL (80.0-94.0); MEAN PLATELET VOLUME 10.2 fL (7.4-11.4); MONOCYTES # (AUTO) 1.1 10^3/uL (0.0-1.0); MONOCYTES % (AUTO) 11.7 %; NEUTROPHILS % (AUTO) 75.6 %; PLT - PLATELET COUNT 323 10^3/uL (130-450); RED BLOOD COUNT 3.42 10^6/uL (4.70-6.10); RED CELL DISTRIBUTION WIDTH 12.9 % (12.0-15.0); WHITE BLOOD COUNT 9.2 x10^3/uL (4.8-10.8)
[2023-08-16 20:26] LABS: ALBUMIN 3.4 g/dL (3.2-5.5); ALBUMIN/GLOBULIN RATIO 2.4 (1.0-2.2); BILIRUBIN,TOTAL 0.9 mg/dL (0.2-1.0); CALCIUM 8.9 mg/dL (8.5-10.3); CREATININE 0.7 mg/dL (0.6-1.3); POTASSIUM 3.5 mmol/L (3.5-4.5); TOTAL PROTEIN 4.8 g/dL (6.4-8.9)
== END 2023-08-16 13:09 | disposition home or self-care (01) ==
LOC: LAB.S 13:08
PROVIDERS: ATTEND Internal Medicine Medical Oncology
DX: C61 Malignant neoplasm of prostate (principal)
CPT/HCPCS: 36415; 80053; 84153; 84402; 84403; 85025

== ENCOUNTER 2023-09-08 08:00 | Outpatient (CLI) | payer MEDICARE, OTHER | END 2023-09-08 23:59 | disposition home or self-care (01) | LOC: PC 08:00 | PROVIDERS: ATTEND Nurse Practitioner Gerontology | DX: Z51.5 Encounter for palliative care (principal); C61 Malignant neoplasm of prostate; C79.9 Secondary malignant neoplasm of unspecified site | CPT/HCPCS: 99426; 99427 ==

== ENCOUNTER → 2023-09-19 | Outpatient (CLI) | payer MEDICARE, OTHER | LOC: PC 08:00 | PROVIDERS: ATTEND Nurse Practitioner Gerontology | DX: Z51.5 Encounter for palliative care (principal); C61 Malignant neoplasm of prostate; C79.51 Secondary malignant neoplasm of bone; G43.909 Migraine, unspecified, not intractable, without status migrainosus; I10 Essential (primary) hypertension; F41.9 Anxiety disorder, unspecified; F43.10 Post-traumatic stress disorder, unspecified; R11.0 Nausea; R10.9 Unspecified abdominal pain; K59.04 Chronic idiopathic constipation; E53.8 Deficiency of other specified B group vitamins; Z65.9 Problem related to unspecified psychosocial circumstances; Z71.89 Other specified counseling | CPT/HCPCS: 99350 ==

== ENCOUNTER 2023-10-09 08:00 | Outpatient (CLI) | payer MEDICARE, OTHER | END 2023-10-09 23:59 | disposition home or self-care (01) | LOC: PC 08:00 | PROVIDERS: ATTEND Nurse Practitioner Gerontology | DX: Z51.5 Encounter for palliative care (principal); C61 Malignant neoplasm of prostate | CPT/HCPCS: 99426; 99427 ==

== ENCOUNTER 2023-10-25 08:00 | Outpatient (CLI) | payer MEDICARE, OTHER | END 2023-10-25 23:59 | disposition home or self-care (01) | LOC: PC 08:00 | PROVIDERS: ATTEND Nurse Practitioner Gerontology | DX: Z51.5 Encounter for palliative care (principal); C61 Malignant neoplasm of prostate; C79.51 Secondary malignant neoplasm of bone; R60.0 Localized edema; I10 Essential (primary) hypertension; I48.91 Unspecified atrial fibrillation; Z71.89 Other specified counseling; Z87.898 Personal history of other specified conditions | CPT/HCPCS: 99350 ==

== ENCOUNTER 2025-01-29 15:47 | Inpatient (IN) ==
--- OUTSIDE RECORDS SUMMARY | 2025-01-29 16:46 | EXTERNAL MEDICAL SUMMARY RPT | Continuity of Care Document ---
Author Organization [place] Address [address] [address] Phone Problems date description facility 2024-12-28 11:17 Malignant neoplasm of prostate [facility] 2024-12-28 11:17 Secondary malignant neoplasm of bone [facility] 2024-12-28 11:17 Major depressive disorder, recu rrent, moderate [facility] 2024-12-28 11:17 Other migraine, not intractable, without status migrainosus [facility] 2024-12-28 11:17 Resistant hypertension [facility] 2024-12-28 11:17 Chronic atrial fibrillation, un specified [facility] 2024-12-28 11:17 Other abnormalities of gait and mobility [facility] 2024-12-28 11:17 Chronic fatigue, unspecified [facility] 2024-12-28 11:17 Encounter for palliative care [facility] 2025-01-20 15:37 Encounter for palliative care [facility] Social History date description facility
--- NOTE | 2025-01-29 16:55 | ED Physician Documentation ---
History of Present Illness Stated complaint Stated Complaint: LEG WEAKNESS/ ARM TREMOR Chief complaint Chief Complaint: Neuro Additonal information Additional information: 79-year-old male with history of prostate cancer with mets comes into the emergency department for right sided weakness that he awoke with around 9 AM. He says that he is having a lot of discoordination right upper extremity right lower extremity feeling like he is having a hard time walking or ambulating. He has had some recent medication changes and is wondering if maybe he was having a reaction to the medications. He has had some recent medication changes and is wondering if maybe he was having a reaction to the medications. This is why he did not initially come to the emergency department. Meds/Allgy Home Medications Ambulatory Orders Medication Instructions Recorded Confirmed abiraterone 250 mg tablet 1,000 mg (4 x 250 mg) PO QAM 12/11/23 01/29/25 Prostate cancer #120 tabs denosumab 60 mg/mL subcutaneous 60 mg subcut [id number] Bone cancer 12/11/23 01/29/25 syringe (Prolia) and mass #1 mL leuprolide acetate (3 month) 22.5 22.5 mg IM [id number] #1 ea 12/11/23 01/29/25 mg (3 month) intramuscular syringe kit (Lupron Depot) naloxone 4 mg/actuation nasal 4 mg intranasal Q3M PRN opioid 12/11/23 01/29/25 spray (Narcan) overdose #2 ea ondansetron 8 mg disintegrating 8 mg PO Q6-12H PRN jessa sea and 12/11/23 01/29/25 tablet vomiting #90 tabs potassium chloride 10 mEq 20 meq PO QDAY 12/26/2301/10 capsule,extended release famotidine 20 mg tablet 20 mg PO QDAY #90 tabs 02/2001/29/25 prednisone 10 mg tablet 10 mg PO QDAY Abdominal pain #90 04/17/24 01/29/25 tabs sennosides 8.6 mg capsule (senna) 8.6 - 25.8 mg (1 - 3 x 8.6 mg) PO 06/08/24 01/29/25 TID PRN constipation #100 caps lidocaine-prilocaine 2.5 %-2.5 % 1 applic topical ONCE PRN 06/15/24 01/29/25 topical cream premedication #30 grams amlodipine 5 mg tablet 2.5 mg (1/2 x 5 mg) PO BID 0 07/06/24 01/29/25 hypertensive emergency #100 tabs lisinopril 20 mg tablet 20 mg PO BID #100 tabs 07/0601/29/25 metoprolol succinate 100 mg 100 mg PO Q12H #180 tabs 0 08/07/24 01/29/25 tablet,extended release 24 hr olanzapine 2.5 mg tablet 2.5 mg PO QPM #100 tabs 05/3 01/29/25 calcium 600 mg (as carbonate)-vit 1 tab PO QDAY 01/29/25 D3 20 mcg (800 unit) chewable tablet (Caltrate plus D) oxycodone 5 mg tablet 5 - 10 mg (1 - 2 x 5 mg) PO Q4-6H 09/25/24 01/29/25 PRN pain, moderate to severe #60 tabs alprazolam 0.25 mg tablet See Rx Instructions PO QDAY PRN 01/08/25 01/29/25 anxiety #60 tabs furosemide 20 mg tablet 20 - 40 mg (1 - 2 x 20 mg) P O QDAY 01/08/25 01/29/25 #100 tabs Allergies Allergies Allergy/AdvReac Type Severity Reaction Status Date / Time Iodinated Contrast Media Allergy Severe Rash Verified 01/29/25 17:12 (Iodinated Contrast Media - Oral and) iodine Allergy Severe Rash Verified 01/29/25 17:12 sodium phosphate (From Fleet AdvReac Nausea Verified 01/29/25 17:12 Enema) PFSH Active Problems All Active Problems (Updated 01/29/25 @ 20:02 by Mirella Schwab DNP) Stroke (Acute) Elevated WBC count (Acute) Stroke (Acute) Fatigue (Chronic) Migraine (Chronic) Chronic nausea (Chronic) 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) Venous insufficiency of both lower extremities (Chronic) Resistant hypertension (Chronic) Imbalance (Chronic) 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) use of systemic steroids (Chronic) Malignant neoplasm of prostate metastatic to bone (Chronic 05/01/23) Osteopenia due to cancer therapy (Chronic 08/07/23) Psychosocial stressors (Chronic 07/11/23) Peripheral edema (Chronic 11/14/22) Lung nodule (Chronic 03/26/23) Chronic atrial fibrillation, unspecified (Chronic 03/26/23) Anxiety (Chronic 03/30/09) Anemia of chronic disease (Chronic 08/07/23) Depression (Chronic) 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) Chronic post-traumatic stress disorder (PTSD) (Chronic) Abdominal pain (Chronic) Prostate cancer metastatic to bone (Chronic) Medical History Medical History (Updated 01/29/25 @ 20:02 by Mirella Schwab DNP) Weight loss, unintentional Anxiety as acute reaction to gross stress Duodenal ulcer New discovery in recent CT scans at [facility] Counseling regarding advanced directives and goals of care Advance directive discussed with patient (07/11/23) Encounter for medication review Hematuria Vitamin D deficiency Vitamin B12 deficiency Recurrent falls Chronic idiopathic constipation (07/11/23) BPH (benign prostatic hyperplasia) History of non-ST elevation myocardial infarction (NSTEMI) Persistent atrial fibrillation with RVR Ineffective coping Opiate overdose Colitis (05/01/23) Polio Surgical History Surgical History H/O prostatectomy Social History Social History (Updated 12/23/24 @ 14:31 by ROBERT Monroe, MSN) Smoking Status: Never smoker Do you dip or chew tobacco?: No Do you vape?: No Patient requests smoking cessation consult: No Initiate information on smoking cessation: No Living arrangement: At home Marital Status: Living Condition: With spouse/s.o. 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 Service: No Are you following a diet prescribed by a doctor: No Are you following a special diet: No POLST Patient has POLST: Yes Exam Exam Vital Signs: Vital Signs x48h Temp Pulse Resp BP Pulse Ox 01/29/25 19:14 98 23 189/89 H 98 01/29/25 18:39 62 18 227/100 H 92 01/29/25 16:30 60 18 179/80 H 97 01/29/25 15:53 36.6 C 62 18 213/109 H 96 Constitutional normal general appearance, no apparent distress, average body habitus, no limitations and alert HENMT normocephalic and head/scalp atraumatic Eyes PERRL, EOMs intact bilaterally, alignment normal and no nystagmus Chest inspection of chest normal Respiratory breath sounds equal bilaterally and normal respiratory effort Cardiovascular normal heart rate noted Gastrointestinal abdomen normal to inspection, abdomen soft to palpation, nontender to palpation, nondistended and no masses Genitourinary no CVA tenderness Extremities normal to inspection Neurology gait abnormality noted (right leg weakness), speech normal, coordination abnormality noted (oicutx-sd-vdtm test abnormal), (kxop-pn-dmya test abnormal) and (tandem gait abnormal), pronator drift noted (right arm drift) and GCS 15 Psychiatry mental status grossly normal Skin skin color normal Results Vitals Vitals: Vital Signs - 24 hr 01/29/25 15:53 01/29/25 16:30 01/29/25 18:39 Temperature 36.6 C Temperature Source Temporal Artery Scan Pulse Rate 62 60 62 Respiratory Rate 18 18 18 Blood Pressure 213/109 H 179/80 H 227/100 H O2 Saturation 96 97 92 O2 Source Room air Room air Room air Pain Intensity 5 0 0 01/29/25 19:14 Temperature Temperature Source Pulse Rate 98 Respiratory Rate 23 Blood Pressure 189/89 H O2 Saturation 98 O2 Source Room air Pain Intensity Oxygen O2 Source Room air EKG (time done) 1704: EKG releavant findings:: EKG personally interpreted by author of this note. Relevant findings are: Rate: Rate (enter#) (57) Rhythm: NSR [place]: Normal Intervals: Normal SC QRS: LVH Ischemia: Normal ST segments Computer interpretation: Agree with computer Labs Labs: Laboratory Tests 01/29/25 17:01 WBC 15.9 H RBC 3.98 L Hgb 12.2 L Hct 38.3 L MCV 96.2 H MCH 30.7 MCHC 31.9 L RDW 12.3 Plt Count 278 MPV 9.8 Neut # (Auto) 14.1 H Lymph # (Auto) 0.7 L [place] # (Auto) 0.7 Eos # (Auto) 0.1 Baso # (Auto) 0.0 Absolute Nucleated RBC 0.00 Nucleated RBC % 0.0 PT 10.4 INR 0.9 Sodium 137 Potassium 3.9 Chloride 105 Carbon Dioxide 27 Anion Gap 5.0 L BUN 21 H Creatinine 0.8 Estimated GFR (MDRD) 93 Glucose 130 H Calcium 9.0 Total Bilirubin 1.7 H AST 13 ALT 8 L Alkaline Phosphatase 53 Total Protein 5.7 L Albumin 3.6 Globulin 2.1 Albumin/Globulin Ratio 1.7 Rads (name of study) head ct wo: Relevant Findings:: Final report received and EMP independent interpretation of test Interpretation: IMPRESSION: No acute intracranial pathology. Stable age-related senescent changes and sequela of chronic small vessel ischemic disease. mri brain wo: Relevant Findings:: Final report received and EMP independent interpretation of test Interpretation: IMPRESSION: Subacute infarction can be seen involving the lateral aspect of the left thalamus. CT angio head neck: Relevant Findings:: Final report received and EMP independent interpretation of test Interpretation: IMPRESSION: No significant intracranial arterial abnormalities are seen. No hemodynamically significant stenosis can be seen within the arteries of the neck. If there is persistent clinical concern for acute cerebral infarction, further evaluation with MRI can be considered. The estimate of stenosis included in the report of the imaging study was calculated using the NASCET method PD Medical Decision Making ED course ED course: 79-year-old male with a significant past medical history including metastatic prostate cancer, chronic atrial fibrillation, resistant hypertension, chronic pain, prior NSTEMI, chronic steroid use, and multiple other comorbidities presented with acute right-sided weakness upon awakening around 9 AM. Differential diagnosis included acute ischemic stroke, intracranial hemorrhage, metastasis-related mass effect, electrolyte derangement, medication effect. On arrival, the patient was hypertensive with blood pressures ranging from 179/80 to 227/100. Neurologic examination revealed right-sided motor weakness, abnormal coordination testing, abnormal gait due to right leg weakness, and right arm pronator drift. Speech remained normal. His NIHSS score was assessed at 4, consistent with a mild stroke but with persistent focal deficits. Initial workup included EKG, which showed normal sinus rhythm with LVH but no acute ischemic changes. Laboratory evaluation revealed leukocytosis (WBC 15.9), mild anemia, elevated total bilirubin, and otherwise unremarkable electrolytes and renal function. Non-contrast head CT demonstrated no intracranial hemorrhage or acute findings. CTA head and neck showed no high-grade stenosis or large vessel occlusion. Due to persistent neurologic symptoms and concern for ischemic stroke despite negative CT findings, MRI brain was obtained, revealing a subacute infarct involving the lateral left thalamus, consistent with the patients symptoms. Given the patients wake-up symptoms, mild NIHSS score, imaging findings, and time of symptom discovery, he was not a candidate for thrombolytics. No LVO was identified for thrombectomy. Blood pressure remained elevated but without signs of hypertensive emergency beyond neurologic deficits attributable to stroke; permissive hypertension was allowed. The patient remained hemodynamically stable throughout his ED stay. Report given to hospitalist Avel who has agreed to admit the patient patient agreeable to stay for further stroke workup and evaluation. Report given to hospitalist Avel who has agreed to admit the patient patient agreeable to stay for further stroke workup and evaluation. Discharge Plan Discharge Patient Disposition: 66 [facility] DC/Xfer Clinical Impression: Stroke Prescriptions: No Action prednisone 10 mg tablet 10 mg PO QDAY Qty: 90 3RF lidocaine-prilocaine 2.5-2.5 % cream 1 applic topical ONCE PRN (Reason: premedication) Qty: 30 5RF alprazolam 0.25 mg tablet See Rx Instructions PO QDAY PRN (Reason: anxiety) Qty: 60 0RF Rx Instructions: 0.25 - 0.5mg orally every day PRN; furosemide 20 mg tablet 20 - 40 mg PO QDAY Qty: 100 3RF Rx Instructions: May increase to 2 tabs (40 mg) on days extra swollen. Take with potassium chloride abiraterone 250 mg tablet 1,000 mg PO QAM Qty: 120 2RF Rx Instructions: must be taken on empty stomach, at least 1 hr before or 2 hrs after a meal/food Lupron Depot (3 month) 22.5 mg syringe kit 22.5 mg IM [id number] Qty: 1 0RF naloxone [Narcan] 4 mg/actuation spray,non-aerosol 4 mg intranasal Q3M PRN (Reason: opioid overdose) Qty: 2 0RF Rx Instructions: spray 1 dose into ONE nostril; alternate nostrils w each dose until help arrives ondansetron 8 mg tablet,disintegrating 8 mg PO Q6-12H PRN (Reason: nausea and vomiting) Qty: 90 2RF Prolia 60 mg/mL syringe 60 mg subcut [id number] Qty: 1 0RF potassium chloride 10 mEq capsule, extended release 20 meq PO QDAY Rx Instructions: Use when taking furosemide. famotidine 20 mg tablet 20 mg PO QDAY Qty: 90 0RF senna 8.6 mg capsule 8.6 - 25.8 mg PO TID PRN (Reason: constipation) Qty: 100 3RF amlodipine 5 mg tablet 2.5 mg PO BID Qty: 100 3RF lisinopril 20 mg tablet 20 mg PO BID Qty: 100 3RF metoprolol succinate 100 mg tablet extended release 24 hr 100 mg PO Q12H Qty: 180 6RF olanzapine 2.5 mg tablet 2.5 mg PO QPM Qty: 100 3RF Caltrate 600 plus D 600 mg-20 mcg (800 unit) tablet,chewable 1 tab PO QDAY oxycodone 5 mg tablet 5 - 10 mg PO Q4-6H PRN (Reason: pain, moderate to severe) Qty: 60 0RF Print Language: Latvian
[2025-01-29] MEDS: methylPREDNISolone SUCCINATE 125 MG/2 ML VIAL IVP STA (17:02)
[2025-01-29 17:08] LABS: HCT - HEMATOCRIT 38.3 % (42.0-52.0); HGB - HEMOGLOBIN 12.2 g/dL (14.0-18.0); MEAN PLATELET VOLUME 9.8 fL (7.4-11.4); NRBC ABSOLUTE COUNT (AUTO) 0.00 x10^3/uL; NUCLEATED RED BLOOD CELLS AUTO 0.0 /100WBC; PLT - PLATELET COUNT 278 10^3/uL (130-450); RED CELL DISTRIBUTION WIDTH 12.3 % (12.0-15.0)
[2025-01-29 17:15] LABS: INR 0.9 (0.8-1.2); PT - PROTHROMBIN TIME 10.4 secs (9.9-12.6)
[2025-01-29 17:35] LABS: ALT ALANINE AMINOTRANSFERASE 8.0 IU/L (10-60); AST ASPARTATE AMINOTRANSFERASE 13.0 IU/L (10-42); BUN - BLOOD UREA NITROGEN 21.0 mg/dL (6-20); CARBON DIOXIDE - CO2 27.0 mmol/L (21-32); CREATININE 0.8 mg/dL (0.6-1.3); GFR - MDRD 93.0 (>89)
--- NOTE | 2025-01-29 18:11 | MRI Report ---
PROCEDURE: MRI Brain WO INDICATIONS: right sided weakness TECHNIQUE: Multisequence MRI of the brain was performed without intravenous contrast. COMPARISON: Correlation is made with CT, 04/26/2023. FINDINGS: Image quality: Diagnostic. CSF Spaces: Basal cisterns are patent. No extra-axial fluid collections. Ventricles are normal in size and shape. Brain: Abnormal diffusion weighted signal can be seen within the lateral aspect of the left thalamus, as on series 7 images 36 and 37. Associated dark signal can be seen on the ADC map. There is developing T2-weighted signal seen at this site. No intracranial mass effect or hemorrhage. Galvan/white matter interface is normal. Brainstem appears normal. No chronic ischemic insults. Normal intravascular flow voids are present. Age-appropriate brain parenchymal volume loss and chronic small vessel ischemic change can be seen. Skull and face: Calvarium has normal marrow signal. Orbits appear normal. Sinuses: Sinuses and mastoids are clear. IMPRESSION: Subacute infarction can be seen involving the lateral aspect of the left thalamus. Reviewed by: Conor Joseph MD on 01/29/2025 5:07 PM [place] Approved by: Conor Joseph MD on 01/29/2025 5:07 PM [facility] Station ID: [id number]
--- NOTE | 2025-01-29 18:39 | CT Report ---
PROCEDURE: CT Head WO INDICATIONS: right sided weakness TECHNIQUE: CT of the head was performed, without intravenous contrast. Reformats: Coronal and sagittal. For radiation dose reduction, the following was used: automated exposure control, adjustment of mA and/or kV according to patient size. COMPARISON: 04/26/2023 FINDINGS: Image quality: Diagnostic. CSF spaces: Basal cisterns are patent. No extra-axial fluid collections. Ventricles are normal in size and shape. Brain: No midline shift. No intracranial mass effect or hemorrhage. Galvan- white matter interface is normal. Age appropriate volume loss and moderate periventricular white matter hypoattenuation, likely chronic ischemic change. Skull and face: Calvarium and visualized facial bones are intact, without suspicious lesions. Sinuses: Visualized sinuses and mastoids are clear. IMPRESSION: No acute intracranial pathology. Stable age-related senescent changes and sequela of chronic small vessel ischemic disease. Reviewed by: Tip Coleman MD on 01/29/2025 6:36 PM PST Approved by: Tip Coleman MD on 01/29/2025 6:36 PM PST Station ID: [id number]
--- NOTE | 2025-01-29 19:11 | CT Report ---
PROCEDURE: CT Angio Head/Neck INDICATIONS: right sided weakness CONTRAST: omni 300, 80ml TECHNIQUE: After the administration of intravenous contrast, images were acquired from the aortic arch through the [place]. 3-dimensional [id number]-[id number] (MIP) and volume rendering reformats were acquired of the central intracranial vasculature and neck separately. COMPARISON: CT cervical spine dated 04/26/2023. FINDINGS: Image quality: Diagnostic. Cerebral CT Angiogram: Internal carotid arteries: No acute findings. Intracranial ICA are patent with no significant stenosis. No occlusion. No aneurysm. Atherosclerotic calcifications of the intracranial internal carotid arteries. Anterior cerebral arteries: Unremarkable. No significant stenosis. No occlusion. No aneurysm. Middle cerebral arteries: Unremarkable. No significant stenosis. No occlusion. No aneurysm. Posterior cerebral arteries: Unremarkable. No significant stenosis. No occlusion. No aneurysm. Basilar artery: Unremarkable. No significant stenosis. No occlusion. No aneurysm. Vertebral arteries: Unremarkable as visualized. Dural venous sinuses: Unremarkable given phase of enhancement. Other: Arterial phase appearance of the brain parenchyma is unremarkable. Neck CT Angiogram: Internal carotid arteries: Unremarkable. No significant stenosis. No dissection or occlusion. Common carotid arteries: Unremarkable. No significant stenosis. No dissection or occlusion. External carotid arteries: Unremarkable. No occlusion. Vertebral arteries: Unremarkable. No significant stenosis. No dissection or occlusion. Aortic Arch and Mediastinum: Partially visualized aortic arch unremarkable without evidence of aneurysm. Origins of the great vessels unremarkable. Atherosclerotic calcifications of the aortic arch. Other: Arterial phase soft tissues of the neck and chest are unremarkable. Normal cervical alignment. Multilevel cervical spondylosis. No acute compression fractures. IMPRESSION: No significant intracranial arterial abnormalities are seen. No hemodynamically significant stenosis can be seen within the arteries of the neck. If there is persistent clinical concern for acute cerebral infarction, further evaluation with MRI can be considered. The estimate of stenosis included in the report of the imaging study was calculated using the NASCET method Reviewed by: Tip Coleman MD on 01/29/2025 7:08 PM PST Approved by: Tip Coleman MD on 01/29/2025 7:08 PM PST Station ID: [id number]
--- NOTE | 2025-01-29 19:12 | HISTORY & PHYSICAL EXAMINATION ---
History of Present Illness Admitted From Admitted From:: Home with History Obtained From History obtained from: Patient interview History of Present Illness HPI Comment/Other: 79-year-old male with history of prostate cancer, Chronic pain, resistant hypertension, CAD, chronic steroid use, atrial fibrillation on metoprolol but not on anticoagulant. Patient had right-sided weakness starting at 9 AM today. Denies fever, chills, chest pain, dyspnea, bowel/bladder abnormality. Denies heart palpitation. Feels a heaviness in his right arm and right leg In the ER, initial NIH score was 4. Patient underwent CT head, CTA head and neck which were unremarkable. MRI brain was performed which showed subacute infarct in the lateral aspect of the left thalamus.. Patient was outside the window for thrombolytics, so these were not given. Hospitalist was contacted for admission for acute stroke Meds/Allgy Home Medications Ambulatory Orders Medication Instructions Recorded Confirmed abiraterone 250 mg tablet 1,000 mg (4 x 250 mg) PO QAM 12/11/23 01/29/25 Prostate cancer #120 tabs denosumab 60 mg/mL subcutaneous 60 mg subcut [id number] Bone cancer 12/11/23 01/29/25 syringe (Prolia) and mass #1 mL leuprolide acetate (3 month) 22.5 22.5 mg IM [id number] #1 ea 12/11/23 01/29/25 mg (3 month) intramuscular syringe kit (Lupron Depot) naloxone 4 mg/actuation nasal 4 mg intranasal Q3M PRN opioid 12/11/23 01/29/25 spray (Narcan) overdose #2 ea ondansetron 8 mg disintegrating 8 mg PO Q6-12H PRN jessa sea and 12/11/23 01/29/25 tablet vomiting #90 tabs potassium chloride 10 mEq 20 meq PO QDAY 12/26/2301/10 capsule,extended release famotidine 20 mg tablet 20 mg PO QDAY #90 tabs 02/2001/29/25 prednisone 10 mg tablet 10 mg PO QDAY Abdominal pain #90 04/17/24 01/29/25 tabs sennosides 8.6 mg capsule (senna) 8.6 - 25.8 mg (1 - 3 x 8.6 mg) PO 06/08/24 01/29/25 TID PRN constipation #100 caps lidocaine-prilocaine 2.5 %-2.5 % 1 applic topical ONCE PRN 06/15/24 01/29/25 topical cream premedication #30 grams amlodipine 5 mg tablet 2.5 mg (1/2 x 5 mg) PO BID 0 07/06/24 01/29/25 hypertensive emergency #100 tabs lisinopril 20 mg tablet 20 mg PO BID #100 tabs 07/0601/29/25 metoprolol succinate 100 mg 100 mg PO Q12H #180 tabs 0 08/07/24 01/29/25 tablet,extended release 24 hr olanzapine 2.5 mg tablet 2.5 mg PO QPM #100 tabs 05/3 01/29/25 calcium 600 mg (as carbonate)-vit 1 tab PO QDAY 01/29/25 D3 20 mcg (800 unit) chewable tablet (Caltrate plus D) oxycodone 5 mg tablet 5 - 10 mg (1 - 2 x 5 mg) PO Q4-6H 09/25/24 01/29/25 PRN pain, moderate to severe #60 tabs alprazolam 0.25 mg tablet See Rx Instructions PO QDAY PRN 01/08/25 01/29/25 anxiety #60 tabs furosemide 20 mg tablet 20 - 40 mg (1 - 2 x 20 mg) P O QDAY 01/08/25 01/29/25 #100 tabs Allergies Allergies Allergy/AdvReac Type Severity Reaction Status Date / Time Iodinated Contrast Media Allergy Severe Rash Verified 01/29/25 17:12 (Iodinated Contrast Media - Oral and) iodine Allergy Severe Rash Verified 01/29/25 17:12 sodium phosphate (From Fleet AdvReac Nausea Verified 01/29/25 17:12 Enema) PFSH Active Problems All Active Problems (Updated 01/29/25 @ 20:35 by Avel El DNP) Persistent atrial fibrillation (Acute) Stroke (Acute) Elevated WBC count (Acute) Stroke (Acute) Fatigue (Chronic) Migraine (Chronic) Chronic nausea (Chronic) 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) Venous insufficiency of both lower extremities (Chronic) Resistant hypertension (Chronic) Imbalance (Chronic) 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) use of systemic steroids (Chronic) Malignant neoplasm of prostate metastatic to bone (Chronic 05/01/23) Osteopenia due to cancer therapy (Chronic 08/07/23) Psychosocial stressors (Chronic 07/11/23) Peripheral edema (Chronic 11/14/22) Lung nodule (Chronic 03/26/23) Chronic atrial fibrillation, unspecified (Chronic 03/26/23) Anxiety (Chronic 03/30/09) Anemia of chronic disease (Chronic 08/07/23) Depression (Chronic) 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) Chronic post-traumatic stress disorder (PTSD) (Chronic) Abdominal pain (Chronic) Prostate cancer metastatic to bone (Chronic) Medical History Medical History (Updated 01/29/25 @ 20:35 by Avel El, PAPO) Weight loss, unintentional Anxiety as acute reaction to gross stress Duodenal ulcer New discovery in recent CT scans at [facility] Counseling regarding advanced directives and goals of care Advance directive discussed with patient (07/11/23) Encounter for medication review Hematuria Vitamin D deficiency Vitamin B12 deficiency Recurrent falls Chronic idiopathic constipation (07/11/23) BPH (benign prostatic hyperplasia) History of non-ST elevation myocardial infarction (NSTEMI) Persistent atrial fibrillation with RVR Ineffective coping Opiate overdose Colitis (05/01/23) Polio Surgical History Surgical History H/O prostatectomy Social History Social History (Updated 12/23/24 @ 14:31 by ROBERT Monroe, MSN) Smoking Status: Never smoker Do you dip or chew tobacco?: No Do you vape?: No Patient requests smoking cessation consult: No Initiate information on smoking cessation: No Living arrangement: At home Marital Status: Living Condition: With spouse/s.o. 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 Service: No Are you following a diet prescribed by a doctor: No Are you following a special diet: No POLST Patient has POLST: Yes Review of Systems Status of ROS: 10 or more systems reviewed and unremarkable except as noted in history and below Exam Exam Vital Signs: Vital Signs x48h Temp Pulse Resp BP Pulse Ox 01/29/25 19:14 98 23 189/89 H 98 01/29/25 18:39 62 18 227/100 H 92 01/29/25 16:30 60 18 179/80 H 97 01/29/25 15:53 97.9 F 62 18 213/109 H 96 Constitutional normal general appearance and no apparent distress HENMT normocephalic and head/scalp atraumatic Eyes PERRL Neck/C-Spine visual inspection normal Lymph no lymphadenopathy noted Chest inspection of chest normal Respiratory breath sounds equal bilaterally Cardiovascular normal heart rate noted Gastrointestinal abdomen normal to inspection and abdomen soft to palpation Extremities normal to inspection Neurology GCS 15 Net Maker grossly normal. Some alteration in sensation in the right hand. Poor coordination/Proprioception with right hand. Right pronator drift Psychiatry oriented x3 Skin skin color normal Conclusion/Plan Problem List (1) Stroke: Plan: Has history of atrial fibrillation not on anticoagulant Right-sided weakness with onset at [address]/CTA head and neck without significant finding Brain MRI with subacute infarct in the lateral aspect of the left thalamus Aspirin 324 mg p.o. once, followed by 81 mg daily Plavix 75 mg daily Allow permissive hypertension Neurochecks Check echo (2) Persistent atrial fibrillation: Plan: History of persistent atrial fibrillation On metoprolol at home Not on anticoagulant due to fall risk Heart rate controlled right now, plan to restart metoprolol tomorrow (3) Elevated WBC count: Plan: Likely stress response from stroke (4) Prostate cancer metastatic to bone: Plan: History of this, stable. No acute concern Plan Admit inpatient med floor Full code His is a surrogate decision maker Has POLST at home Lab Results Lab results reviewed: Yes 01/29/25 17:01 01/29/25 17:01 Core Measures Anticipated LOS I expect patient to be DC'd or transferred within 96 hours.: Yes DVT/VTE - Prophylaxis VTE/DVT Prophylaxis med ordered at admit?: Yes Stroke - Rehab Assessment Rehab services assessment to be ordered?: Yes
--- OUTSIDE RECORDS SUMMARY | 2025-01-29 20:18 | EXTERNAL MEDICAL SUMMARY RPT | Continuity of Care Document ---
Author Organization [facility] Address [address] [address] Phone Problems date description facility 2024-12-28 11:17 Malignant neoplasm of prostate [facility] 2024-12-28 11:17 Secondary malignant neoplasm of bone [facility] 2024-12-28 11:17 Major depressive disorder, recu rrent, moderate [facility] 2024-12-28 11:17 Other migraine, not intractable, without status migrainosus [facility] 2024-12-28 11:17 Resistant hypertension [facility] 2024-12-28 11:17 Chronic atrial fibrillation, un specified [facility] 2024-12-28 11:17 Other abnormalities of gait and mobility [facility] 2024-12-28 11:17 Chronic fatigue, unspecified [facility] 2024-12-28 11:17 Encounter for palliative care [facility] 2025-01-20 15:37 Encounter for palliative care [facility] Results/Labs test date facility value unit notes Result panel 1 NUCLEATED RED BLOOD CELLS AUTO 2025-01-29 17:01 [facility] 0.0 /100wbc (missing) BASOPHILS # (AUTO) 2025-01-29 17:01 [facility] 0.0 10 3/ul (missing) NRBC ABSOLUTE COUNT (AUTO) 2025-01-29 17:01 [facility] 0.00 x10 3/ul (missing) EOSINOPHILS # (AUTO) 2025-01-29 17:01 [facility] 0.1 10 3/ul (missing) MONOCYTES # (AUTO) 2025-01-29 17:01 [facility] 0.7 10 3/ul (missing) LYMPHOCYTES # (AUTO) 2025-01-29 17:01 [facility] 0.7 10 3/ul (missing) CREATININE 2025-01-29 17:01 [facility] 0.8 mg/dl As of September 2022 testing method has changed, this may include reference ranges. INR 2025-01-29 17: [facility] 0.9 (missing) Oral Anticoagulant Indication INR range Venous Thrombosis, P.E. 2.0 - 3.0 Mechanical Valve 2.5 - 3.5 ALBUMIN/GLOBULIN RATIO 2025-01-29 17: [facility] 1.7 (missing) (missing) BILIRUBIN,TOTAL 2025-01-29 17: [facility] 1.7 mg/dl As of September 2022 testing method has changed, this may include reference ranges. PT - PROTHROMBIN TIME 2025-01-29 17: [facility] 10.4 secs N CHLORIDE 2025-01-29 17: [facility] 105 mmol/l As of September 2022 testing method has changed, this may include reference ranges. HGB - HEMOGLOBIN 2025-01-29 17: [facility] 12.2 g/dl (missing) RED CELL DISTRIBUTION WIDTH 2025-01-29 17: [facility] 12.3 % (missing) AST ASPARTATE AMINOTRANSFERASE 2025-01-29 17: [facility] 13 iu/l As of September 2022 testing method has changed, this may include reference ranges. GLUCOSE 2025-01-29 17: [facility] 130 mg/dl As of September 2022 testing method has changed, this may include reference ranges. SODIUM 2025-01-29 17: [facility] 137 mmol/l (missing) NEUTROPHILS # (AUTO) 2025-01-29 17: [facility] 14.1 10 3/ul (missing) WHITE BLOOD COUNT 2025-01-29 17: [facility] 15.9 x10 3/ul (missing) GLOBULIN 2025-01-29 17: [facility] 2.1 g/dl (missing) BUN - BLOOD UREA NITROGEN 2025-01-29 17: [facility] 21 mg/dl As of September 2022 testing method has changed, this may include reference ranges. CARBON DIOXIDE - CO2 2025-01-29 17: [facility] 27 mmol/l As of September 2022 testing method has changed, this may include reference ranges. PLT - PLATELET COUNT 2025-01-29 17: [facility] 278 10 3/ul (missing) ALBUMIN 2025-01-29 17: [facility] 3.6 g/dl As of September 2022 testing method has changed, this may include reference ranges. POTASSIUM 2025-01-29 17: [facility] 3.9 mmol/l As of September 2022 testing method has changed, this may include reference ranges. RED BLOOD COUNT 2025-01-29 17: [facility] 3.98 10 6/ul (missing) MEAN CORPUSCULAR HEMOGLOBIN 2025-01-29 17: [facility] 30.7 pg (missing) MEAN CORPUSCULAR HGB CONC 2025-01-29 17: [facility] 31.9 g/dl (missing) HCT - HEMATOCRIT 2025-01-29 17: [facility] 38.3 % (missing) ANION GAP 2025-01-29 17: [facility] 5.0 (missing) (missing) TOTAL PROTEIN 2025-01-29 17: [facility] 5.7 g/dl As of September 2022 testing method has changed, this may include reference ranges. ALKALINE PHOSPHATASE 2025-01-29 17: [facility] 53 iu/l As of September 2022 testing method has changed, this may include reference ranges. ALT ALANINE AMINOTRANSFERASE 2025-01-29 17: [facility] 8 iu/l As of September 2022 testing method has changed, this may include reference ranges. CALCIUM 2025-01-29: [facility] 9.0 mg/dl As of September 2022 testing method has changed, this may include reference ranges. MEAN PLATELET VOLUME 2025-01-29 17: [facility] 9.8 fl (missing) GFR - MDRD 2025-01-29 17: [facility] 93 (missing) The IDMS-traceable MDRD Study Equation has been validated extensively in and populations between the ages of 18 and 70 with impaired kidney function (eGFR < 60 mL/min/1.73m2) and has shown good performance for patients with all common causes of kidney disease. Although this equation has not been validated for patients older than 70, an MDRD-derived eGFR may still be a useful tool for providers caring for patients older than 70. References: http://www.nkdep.ni h.gov/lab-evaluatio n/gfr/creatinine-st and ardization, last updated May 2011. MEAN CORPUSCULAR VOLUME 2025-01-29 17:01 [facility] 96.2 fl (missing) Social History date description facility
[2025-01-29] MEDS ORDERED: ONDANSETRON 4 MG/2 ML VIAL IVP PRN (20:34)
[2025-01-29] MEDS ORDERED: SODIUM CHLORIDE FLUSH 0.9% 10 ML SYRINGE IVP PRN (20:34)
[2025-01-29] MEDS: ASPIRIN CHEW 81 MG TABLET PO STA (20:36)
[2025-01-29] MEDS: ONDANSETRON 4 MG/2 ML VIAL IVP STA (20:36)
[2025-01-29] MEDS: CLOPIDOGREL 75 MG TABLET PO STA (20:37)
[2025-01-30] MEDS: SODIUM CHLORIDE FLUSH 0.9% 10 ML SYRINGE IVP SCH (00:56)
[2025-01-30 06:32] LABS: HCT - HEMATOCRIT 40.3 % (42.0-52.0); HGB - HEMOGLOBIN 12.7 g/dL (14.0-18.0); MEAN PLATELET VOLUME 9.9 fL (7.4-11.4); NRBC ABSOLUTE COUNT (AUTO) 0.00 x10^3/uL; NUCLEATED RED BLOOD CELLS AUTO 0.0 /100WBC; PLT - PLATELET COUNT 285 10^3/uL (130-450); RED CELL DISTRIBUTION WIDTH 12.4 % (12.0-15.0)
[2025-01-30 06:48] LABS: BUN - BLOOD UREA NITROGEN 20.0 mg/dL (6-20); CARBON DIOXIDE - CO2 24.0 mmol/L (21-32); CREATININE 0.8 mg/dL (0.6-1.3); GFR - MDRD 93.0 (>89)
--- NOTE | 2025-01-30 08:29 | PHARMACY PROGRESS NOTE ---
Best Possible Medication History Admit Date and Time: 01/29/251903 Home Medications Medication Instructions Recorded Confirmed Type abiraterone 250 mg tablet 1,000 mg (4 x 250 mg) PO QAM 12/11/23 01/29/25 Rx Prostate cancer #120 tabs denosumab 60 mg/mL subcutaneous 60 mg subcut [id number] Bone cancer 12/11/23 01/29/25 Rx syringe (Prolia) and mass #1 mL leuprolide acetate (3 month) 22.5 22.5 mg IM [id number] #1 ea 12/11/23 01/29/25 Rx mg (3 month) intramuscular syringe kit (Lupron Depot) naloxone 4 mg/actuation nasal 4 mg intranasal Q3M PRN opioid 12/11/23 01/29/25 Rx spray (Narcan) overdose #2 ea ondansetron 8 mg disintegrating 8 mg PO Q6-12H PRN jessa sea and 12/11/23 01/29/25 Rx tablet vomiting #90 tabs potassium chloride 10 mEq 20 meq PO QDAY 12/26/2301/10 History capsule,extended release famotidine 20 mg tablet 20 mg PO QDAY #90 tabs 02/2001/29/25 Rx prednisone 10 mg tablet 10 mg PO QDAY Abdominal pain #90 04/17/24 01/29/25 Rx tabs sennosides 8.6 mg capsule (senna) 8.6 - 25.8 mg (1 - 3 x 8.6 mg) PO 06/08/24 01/29/25 Rx TID PRN constipation #100 caps lidocaine-prilocaine 2.5 %-2.5 % 1 applic topical ONCE PRN 06/15/24 01/29/25 Rx topical cream premedication #30 grams amlodipine 5 mg tablet 2.5 mg (1/2 x 5 mg) PO BID 0 07/06/24 01/29/25 Rx hypertensive emergency #100 tabs lisinopril 20 mg tablet 20 mg PO BID #100 tabs 07/0601/29/25 Rx metoprolol succinate 100 mg 100 mg PO Q12H #180 tabs 0 08/07/24 01/29/25 Rx tablet,extended release 24 hr olanzapine 2.5 mg tablet 2.5 mg PO QPM #100 tabs 05/3 25 Rx calcium 600 mg (as carbonate)-vit 1 tab PO QDAY 01/29/25 History D3 20 mcg (800 unit) chewable tablet (Caltrate plus D) oxycodone 5 mg tablet 5 - 10 mg (1 - 2 x 5 mg) PO Q4-6H 09/25/24 01/29/25 Rx PRN pain, moderate to severe #60 tabs alprazolam 0.25 mg tablet See Rx Instructions PO QDAY PRN 01/08/25 01/29/25 Rx anxiety #60 tabs furosemide 20 mg tablet 20 - 40 mg (1 - 2 x 20 mg) P O QDAY 01/08/25 01/29/25 Rx #100 tabs Processed by: Nursing Medications reviewed in ED?: Yes Medication History completed: Yes Patient Interview: Completed Secondary Source(s): Physician records, Pharmacy records and Insurance records [facility] Statement: As the person ultimately responsible for medication therapy, providers are able to order a medication from an existing home medication list in [facility] via the "Reconcile Routine" prior to Confirmation of that medication by it technical support specialist. Such practice is discouraged except when the physician, in their clinical judgment, deems that a medical need exists for a medication without regard to previous use.
[2025-01-30] MEDS: ASPIRIN EC 81 MG TABLET PO SCH (09:51)
[2025-01-30] MEDS: ENOXAPARIN 40 MG/0.4 ML SYRINGE SUBQ SCH (09:51)
[2025-01-30] MEDS: CLOPIDOGREL 75 MG TABLET PO SCH (11:48)
--- NOTE | 2025-01-30 12:22 | CT Report ---
PROCEDURE: CT Head WO INDICATIONS: change in stroke symptoms TECHNIQUE: Helical axial CT of the brain was obtained without contrast and reformatted in multiple planes. COMPARISON: 01/29/2025 FINDINGS: CSF spaces: Ventricles are appropriate in size and position. No hydrocephalus. Basal cisterns unremarkable. Brain: No midline shift. No intracranial masses or hemorrhage. Galvan-white matter interface is normal. Left thalamic focal hypodensity, similar to the prior Skull and face: Calvarium and skull base are unremarkable without suspicious lesion. Sinuses: Visualized sinuses and mastoids are clear. IMPRESSION: Subacute left thalamic infarct without hemorrhagic conversion. Atrophy and white matter chronic ischemic change Reviewed by: Robby Kc MD on 01/30/2025 11:19 AM [facility] Approved by: Robby Kc MD on 01/30/2025 11:19 AM [facility] Station ID: [id number]
[2025-01-30] MEDS: ABIRATERONE 250 MG PO SCH (14:55)
--- NOTE | 2025-01-30 15:31 | PROVIDER PROGRESS NOTE ---
Subjective Prog Note Date Prog Note Date: 01/30/25 Subjective Pt reports feeling: Worse Current Medications Current Medications Current Medications: Current Medications Generic Name Dose Route Start Last Admin Trade Name Freq PRN Reason Stop Dose Admin Acetaminophen 650 mg 01/29/25 20:34 Acetaminophen 325 Mg Tablet PO Q4HR PRN Pain 1 to 4, or Fever Aspirin 81 mg 01/30/25 09:00 01/30/25 09:51 Aspirin Ec 81 Mg Tablet PO 81 mg DAILY WERNER Administration Clopidogrel Bisulfate 75 mg 01/30/25 12:00 01/30/25 11:48 Clopidogrel 75 Mg Tablet PO 75 mg DAILY WERNER Administration Enoxaparin Sodium 40 mg 01/30/25 09:00 01/30/25 09:51 Enoxaparin 40 Mg/0.4 Ml Syringe SUBQ 40 mg DAILY WERNER Administration Olanzapine 2.5 mg 01/29/25 21:00 01/29/25 21:57 Olanzapine Odt 5 Mg Tablet TL 2.5 mg QPM WERNER Administration Ondansetron HCl 4 mg 01/29/25 20:34 Ondansetron Odt 4 Mg Tablet TL Q6HR PRN Nausea / Vomiting Ondansetron HCl 4 mg 01/29/25 20:34 Ondansetron 4 Mg/2 Ml Vial IVP Q6HR PRN Nausea / Vomiting Abiraterone 250 Mg 4 each 01/30/25 14:00 01/30/25 14:55 Tab PO 4 each DAILY@1000 WERNER Administration Prednisone 10 mg 01/30/25 14:00 01/30/25 14:54 Prednisone 5 Mg Tablet PO 10 mg 1000 WERNER Administration Sodium Chloride 10 ml 01/29/25 20:34 Sodium Chloride Flush 0.9% 10 Ml Syringe IVP PRN PRN NEEDED PER PROVIDER ORDERS Sodium Chloride 10 ml 01/30/25 01:00 01/30/25 09:51 Sodium Chloride Flush 0.9% 10 Ml Syringe IVP 10 ml 0100,0900,1700 WERNER Administration Objective Vital Signs/Intake & Output Reviewed Vital Signs: Yes Vital Signs: Vital Signs x48h Temp Pulse Resp BP Pulse Ox 01/30/25 13:00 97.9 F 61 18 156/68 H 96 01/30/25 09:20 97.9 F 67 18 182/92 H 96 Intake & Output: Intake & Output 01/27/25 01/28/25 01/29/25 11/22/25 23:59 23:59 23:59 23:59 Intake Total 100 / 100 480 / 480 Output Total 1550 / 1550 Balance 100 / 100 -1070 / -1070 Weight (kg) 75 kg Objective General Appearance: positive No acute distress and Alert Eyes Bilateral: positive Normal inspection and PERRL ENT: positive ENT inspection nml Neck: positive Nml inspection Respiratory: positive Chest non-tender and No respiratory distress Cardiovascular: positive Regular rate & rhythm Abdomen: positive Non-tender Skin: positive Color nml Extremities: positive Non-tender Neurologic/Psychiatric: positive Oriented x3 and Other (Difficulty with opening and closing hand. Poor coordination on the right. Pronator drift on right. Slightly worse than last night) Lab Results 01/30/25 06:21 01/30/25 06:21 Other Labs: Lab Results x24hrs 01/30/25 01/29/25 Range/Units 06:21 17:01 WBC 9.2 15.9 H (4.8-10.8) x10^3/uL RBC 4.13 L 3.98 L (4.70-6.10) 10^6/uL Hgb 12.7 L 12.2 L (14.0-18.0) g/dL Hct 40.3 L 38.3 L (42.0-52.0) % MCV 97.6 H 96.2 H (80.0-94.0) fL MCH 30.8 30.7 (27.0-31.0) pg MCHC 31.5 L 31.9 L (32.0-36.0) g/dL RDW 12.4 12.3 (12.0-15.0) % Plt Count 285 278 (130-450) 10^3/uL MPV 9.9 9.8 (7.4-11.4) fL Neut # (Auto) 7.7 H 14.1 H (1.5-6.6) 10^3/uL Lymph # (Auto) 0.8 L 0.7 L (1.5-3.5) 10^3/uL Gilliam # (Auto) 0.6 0.7 (0.0-1.0) 10^3/uL Eos # (Auto) 0.0 0.1 (0.0-0.7) 10^3/uL Baso # (Auto) 0.0 0.0 (0.0-0.1) 10^3/uL Absolute Nucleated RBC 0.00 0.00 x10^3/uL Nucleated RBC % 0.0 0.0 /100WBC PT 10.4 (9.9-12.6) secs INR 0.9 (0.8-1.2) Sodium 136 137 (135-145) mmol/L Potassium 4.3 3.9 (3.5-4.5) mmol/L Chloride 105 105 (101-111) mmol/L Carbon Dioxide 24 27 (21-32) mmol/L Anion Gap 7.0 5.0 L (6-13) BUN 20 21 H (6-20) mg/dL Creatinine 0.8 0.8 (0.6-1.3) mg/dL Estimated GFR (MDRD) 93 93 (>89) Glucose 134 H 130 H (74-104) mg/dL Calcium 9.1 9.0 (8.5-10.3) mg/dL Total Bilirubin 1.7 H (0.2-1.0) mg/dL AST 13 (10-42) IU/L ALT 8 L (10-60) IU/L Alkaline Phosphatase 53 (42-121) IU/L Total Protein 5.7 L (6.4-8.9) g/dL Albumin 3.6 (3.2-5.5) g/dL Globulin 2.1 (2.1-4.2) g/dL Albumin/Globulin Ratio 1.7 (1.0-2.2) Assessment/Plan Problem List (1) Stroke: Impression: History of atrial fibrillation not on anticoagulant Presented outside of tPA window MRI shows subacute infarct in the lateral aspect of the left thalamus Continue aspirin 81 mg daily, Plavix 75 mg daily Continue to allow permissive hypertension Neurochecks Check echo PT eval 01/30: Patient reported worsening in his symptoms. He does have worsening weakness and coordination in the right. Ascending for repeat CT head, no hemorrhagic conversion (2) Persistent atrial fibrillation: Impression: History of atrial fibrillation not on anticoagulant Metoprolol for rate control at home Could probably restart metoprolol tonight Telemetry reveals sinus rhythm (3) Elevated WBC count: Impression: Stress response, resolved (4) Prostate cancer metastatic to bone: Impression: Continue home dose ABIRATERONE, As well as home dose prednisone
--- NOTE | 2025-01-30 15:34 | ECHO Report ---
Version: 1 Study ID: [id number] Adult Echocardiogram Report Name: LASHA HORTON Study Date: 01/30/2025, 7: 53 AM BP: 159 / 72 mmHg Patient Location: [id number] HR: 55 bpm : 1945 (MM/DD/YYYY) Gender: Male Height: 70 in Age: 79 Years Weight: 165 lb BSA: 1.92 m² Reason For Study: stroke workup History: Saline contrast BUBBLE study ordered. Sinus Reg during test. Previous study 06/18/2024-EF 55-60%. No significant valve disease. Interpretation Summary Global left ventricular systolic function is normal. The calculated ejection fraction, as determined by the biplane method of disks, is 57%. The overall diastolic pattern is most consistent with impaired left ventricular relaxation with low to normal filling pressures. The right ventricle is normal in size and function. Mild aortic regurgitation is present. The pulmonary artery systolic pressure is mildly increased. The right ventricular systolic pressure is 42mmHg Left Ventricle: The left ventricle is normal in size. There is normal left ventricular wall thickness. Sigmoid shaped Septum. No thrombus seen in the left ventricle. The calculated ejection fraction, as determined by the biplane method of disks, is 57%. Global left ventricular systolic function is normal. No regional wall motion abnormalities are present. The overall diastolic pattern is most consistent with impaired left ventricular relaxation with low to normal filling pressures. Right Ventricle: The right ventricle is normal in size and function. TAPSE is consistent with normal right ventricular function. The tricuspid annular plane systolic excursion (TAPSE) measurement is 2.3 cm. Aortic Valve: The aortic valve is normal in structure and function. The aortic valve is trileaflet. No hemodynamically significant valvular aortic stenosis. Mild aortic regurgitation is present. Mitral Valve: The mitral valve is visually normal in structure and function. No evidence of mitral stenosis is seen. There is trace mitral regurgitation. Tricuspid Valve: The tricuspid valve is normal in structure and function. There is no tricuspid stenosis. Mild tricuspid regurgitation present. Pulmonic Valve: The pulmonic valve is normal in structure and function. There is no pulmonic valvular stenosis. Trace pulmonic valvular regurgitation is present. Left Atrium: The left atrium is borderline dilated. Right Atrium: The right atrium is borderline dilated. The inferior vena cava appears normal. Atrial Septum: The interatrial septum appears normal, without evidence of shunt by 2D imaging and color Doppler. Saline contrast BUBBLE study With/Without Valsalva is negative for Atrial Septal shunt. Aorta: The ascending aorta is normal in size. The transverse arch is normal in size. The sinuses of Valsalva are normal in size. Pulmonary Artery: The pulmonary artery is normal size. The pulmonary artery systolic pressure is mildly increased. Inferior vena cava dynamics indicate normal right atrial pressures. The right ventricular systolic pressure is 42mmHg. Pericardium/Pleural Space: There is no pericardial effusion. Left Ventricle IVSd: 1.03 cm LVIDd: 4.5 cm LVPWd: 0.98 cm LVIDs: 3.5 cm EDV(MOD-sp4): 79.5 ml LVLd ap4: 8.4 cm ESV(MOD-sp4): 39.8 ml ESV(sp4-el): 67.0 ml LVLs ap4: 7.0 cm EDV(MOD-sp2): 74.1 ml ESV(MOD-sp2): 36.0 ml Right Ventricle TAPSE: 2.27 cm RV S Wei: 17.8 cm/sec Atria LA dimension: 4.5 cm LAV(MOD-sp4): 62.2 ml LAV(MOD-sp2): 56.7 ml Diastolic Function MV dec time: 0.29 sec MV E max wei: 48.0 cm/sec MV A max wei: 80.3 cm/sec Aortic Valve LVOT diam: 2.01 cm AI max wei: 502.2 cm/sec AI max P.9 mmHg LV V1 mean P.88 mmHg LV V1 mean: 61.9 cm/sec LV V1 VTI: 25.1 cm Ao V2 VTI: 40.1 cm Ao mean P.6 mmHg Ao V2 mean: 101.0 cm/sec LV V1 max: 94.9 cm/sec LV V1 max P.6 mmHg Ao max P.6 mmHg Ao V2 max: 146.3 cm/sec Mitral Valve MV max P.4 mmHg MV V2 max: 92.3 cm/sec MV mean P.93 mmHg MV V2 mean: 43.5 cm/sec MV V2 VTI: 27.0 cm Tricuspid Valve TR max P.5 mmHg TR max wei: 314.1 cm/sec TV max P.5 mmHg Aorta Ao root diam: 3.0 cm MMode/2D Measurements & Calculations Ao root diam: 3.0 cm BMI: 23.7 kilograms/m² BSA([facility], [place]): 1.93 m² EDV(MOD-sp2): 74.1 ml EDV(MOD-sp4): 79.5 ml ESV(MOD-sp2): 36.0 ml ESV(MOD-sp4): 39.8 ml ESV(sp4-el): 67.0 ml IVSd: 1.03 cm LA A4C-A/L: 18.7 cm² LA dimension: 4.5 cm LA ESV-A/L: 58.7 ml LA Vol Index: 41.6 ml/m² LAV(MOD-sp2): 56.7 ml LAV(MOD-sp4): 62.2 ml LVIDd: 4.5 cm LVIDs: 3.5 cm LVLd ap4: 8.4 cm LVLs ap4: 7.0 cm LVOT diam: 2.01 cm LVPWd: 0.98 cm RA A4Cs: 16.3 cm² TAPSE: 2.27 cm Doppler Measurements & Calculations AI max P.9 mmHg AI max wei: 502.2 cm/sec Ao max P.6 mmHg Ao mean P.6 mmHg Ao V2 max: 146.3 cm/sec Ao V2 mean: 101.0 cm/sec Ao V2 VTI: 40.1 cm Lat E/e': 10.0 LV V1 max: 94.9 cm/sec LV V1 max P.6 mmHg LV V1 mean: 61.9 cm/sec LV V1 mean P.88 mmHg LV V1 VTI: 25.1 cm Med E/e': 15.5 MV A max wei: 80.3 cm/sec MV dec time: 0.29 sec MV DVI-pr: 0.60 MV E max wei: 48.0 cm/sec MV max P.4 mmHg MV mean P.93 mmHg MV V2 max: 92.3 cm/sec MV V2 mean: 43.5 cm/sec MV V2 VTI: 27.0 cm PA max P.93 mmHg PA V2 max: 69.4 cm/sec RV S Wei: 17.8 cm/sec TR max P.5 mmHg TR max wei: 314.1 cm/sec TV max P.5 mmHg Other Measurements & Calculations Ao root area: 6.9 cm² ANA(I,D): 1.99 cm² ANA(V,D): 2.06 cm² EDV(Teich): 92.9 ml EF(MOD-sp2): 51.4 % EF(MOD-sp4): 50.0 % EF(sp-el): 54.9 % EF(Teich): 43.9 % ESV(Teich): 52.1 ml FS: 21.6 % LVOT area: 3.2 cm² MV E/A: 0.60 MVA(VTI): 3.0 cm² SV(LVOT): 79.8 ml SV(MOD-sp4): 39.8 ml MD Shala Lewis 01/30/2025, 3: 33 PM Ordering Physician: Avel El Referring Physician: Mirella Schwab Performed By: PILI
[2025-01-30] MEDS: LORazepam 2 MG/ML VIAL IVP PRN (20:11)
[2025-01-31 05:11] LABS: HCT - HEMATOCRIT 36.0 % (42.0-52.0); HGB - HEMOGLOBIN 11.9 g/dL (14.0-18.0); MEAN PLATELET VOLUME 10.5 fL (7.4-11.4); NRBC ABSOLUTE COUNT (AUTO) 0.00 x10^3/uL; NUCLEATED RED BLOOD CELLS AUTO 0.0 /100WBC; PLT - PLATELET COUNT 269 10^3/uL (130-450); RED CELL DISTRIBUTION WIDTH 12.3 % (12.0-15.0)
[2025-01-31 05:31] LABS: BUN - BLOOD UREA NITROGEN 20.0 mg/dL (6-20); CARBON DIOXIDE - CO2 27.0 mmol/L (21-32); CREATININE 0.8 mg/dL (0.6-1.3); GFR - MDRD 93.0 (>89)
[2025-01-31] MEDS: METOPROLOL SUCCINATE 50 MG TABLET PO SCH (11:26)
[2025-01-31] MEDS: METOPROLOL 5 MG/5 ML VIAL IVP STA ×2 (12:30→15:30)
--- NOTE | 2025-01-31 13:34 | PT Plan of Care ---
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 MEDICAL/SURGICAL HISTORY Medical History (Updated 01/29/25 @ 20:35 by Avel El DNP) Weight loss, unintentional Anxiety as acute reaction to gross stress Duodenal ulcer New discovery in recent CT scans at [facility] Counseling regarding advanced directives and goals of care Advance directive discussed with patient (07/11/23) Encounter for medication review Hematuria Vitamin D deficiency Vitamin B12 deficiency Recurrent falls Chronic idiopathic constipation (07/11/23) BPH (benign prostatic hyperplasia) History of non-ST elevation myocardial infarction (NSTEMI) Persistent atrial fibrillation with RVR Ineffective coping Opiate overdose Colitis (05/01/23) Polio Surgical History H/O prostatectomy BALANCE/FUNCTIONAL RESULTS Sitting Balance: Fair Standing Balance: Poor Farias Balance Evaluation Total Score: 3 Farias Balance Test Interpretation: High Fall Risk ASSESSMENT Assessment: The pt is a 79 y/o M who arrived to the ED on 01/29/25 due to worsening R sided weakness, he was hospitalized with a subacute infarct in the lateral aspect of the L thalamus. PMH includes prostate CA, CAD, a-fib, please see chart for complete medical hx. The pt was received resting comfortably supine in bed while visiting with his . He presented today with absent R UE and LE sensation, decreased strength of R UE and R LE, impaired proprioception of R UE and R LE, impaired R sided coordination, decreased activity tolerance, and impaired balance (sitting and standing) all of which limited his tolerance during functional mobility. At this time recommend continued skilled PT intervention while in the acute setting and DC to IPR for further rehab once pt medically stable as the pt is motivated and has a high PLOF. This plan was discussed with the pt and his , they were in agreement with this. At the end of the session the pt was sitting up in a chair with call light in reach, chair alarm in place and on, and all needs met while eating his lunch and visisting with his . Recommend pt be assessed by OT and CHALK MOLDING MACHINE OPERATOR. RN, BONE CHAR OPERATOR, and DNP all updated on pt's status and DC rec. PATIENT/FAMILY GOALS Patient/Family Goals: To be able to get OOB on my own and walk to the bathroom GOALS Improve supine to sit to:: Minimal Assist Improve sit to stand to:: Minimal Assist Improve pivot transfer ability to:: Minimal Assist Improve sit to supine to:: Minimal Assist Improve gait ability to:: Max A Advance Assistive Device to:: Front Wheeled Walker Increase distance walked to (in feet):: 5 Improve Sitting Balance to:: Good PLAN Frequency: 1-2x/day Duration: Until discharge DISCHARGE RECOMMENDATIONS Discharge Location: IPR Support/Services Needed: With assist Other Discharge Equipment: pt owns all recommended DME Transport Needs at Discharge: BLS vs van
--- NOTE | 2025-01-31 15:29 | PROVIDER PROGRESS NOTE ---
Subjective Prog Note Date Prog Note Date: 01/31/25 Subjective Pt reports feeling: Worse Subjective: Worsening sensation in the affected arm Current Medications Current Medications Current Medications: Current Medications Generic Name Dose Route Start Last Admin Trade Name Freq PRN Reason Stop Dose Admin Acetaminophen 650 mg 01/29/25 20:34 Acetaminophen 325 Mg Tablet PO Q4HR PRN Pain 1 to 4, or Fever Alprazolam 0.5 mg 01/30/25 20:11 01/31/25 15:06 Alprazolam 0.25 Mg Tablet PO 0.5 mg BID PRN Administration Anxiety Aspirin 81 mg 01/30/25 09:00 01/31/25 08:46 Aspirin Ec 81 Mg Tablet PO 81 mg DAILY WERNER Administration Clopidogrel Bisulfate 75 mg 01/30/25 12:00 01/31/25 08:46 Clopidogrel 75 Mg Tablet PO 75 mg DAILY WERNER Administration Enoxaparin Sodium 40 mg 01/30/25 09:00 01/31/25 08:46 Enoxaparin 40 Mg/0.4 Ml Syringe SUBQ 40 mg DAILY WERNER Administration Lisinopril 20 mg 01/31/25 11:00 01/31/25 11:26 Lisinopril 20 Mg Tablet PO 20 mg BID WERNER Administration Lorazepam 0.5 mg 01/30/25 19:32 01/30/25 20:11 Lorazepam 2 Mg/Ml Vial IVP 0.5 mg Q2H PRN Administration Anxiety Metoprolol Succinate 100 mg 01/31/25 11:00 01/31/25 11:26 Metoprolol Succinate 50 Mg Tablet PO 100 mg Q12H WERNER Administration Olanzapine 2.5 mg 01/29/25 21:00 01/30/25 19:21 Olanzapine Odt 5 Mg Tablet TL 2.5 mg QPM WERNER Administration Ondansetron HCl 4 mg 01/29/25 20:34 Ondansetron Odt 4 Mg Tablet TL Q6HR PRN Nausea / Vomiting Ondansetron HCl 4 mg 01/29/25 20:34 Ondansetron 4 Mg/2 Ml Vial IVP Q6HR PRN Nausea / Vomiting Abiraterone 250 Mg 4 each 01/30/25 14:00 01/31/25 10:26 Tab PO 4 each DAILY@1000 WERNER Administration Prednisone 10 mg 01/30/25 14:00 01/31/25 10:26 Prednisone 5 Mg Tablet PO 10 mg 1000 WERNER Administration Sodium Chloride 10 ml 01/29/25 20:34 Sodium Chloride Flush 0.9% 10 Ml Syringe IVP PRN PRN NEEDED PER PROVIDER ORDERS Sodium Chloride 10 ml 01/30/25 01:00 01/31/25 08:46 Sodium Chloride Flush 0.9% 10 Ml Syringe IVP 10 ml 0100,0900,1700 WERNER Administration Objective Vital Signs/Intake & Output Reviewed Vital Signs: Yes Vital Signs: Vital Signs x48h Temp Pulse Pulse Pulse Pulse Resp BP 01/31/25 14:36 97.9 F 86 18 01/31/25 13:31 71 01/31/25 12:40 98 01/31/25 12:35 106 H 16 01/31/25 12:30 107 H 141/87 H 01/31/25 11:20 151 H 138 H 01/31/25 10:30 64 01/31/25 07:59 97.9 F 79 16 BP BP BP Pulse Ox 01/31/25 14:36 120/80 95 01/31/25 13:31 122/78 01/31/25 12:40 125/82 01/31/25 12:35 142/91 H 98 01/31/25 12:30 01/31/25 11:20 166/125 H 199/108 H 01/31/25 10:30 184/79 H 01/31/25 07:59 199/100 H 98 Intake & Output: Intake & Output 01/28/25 01/29/25 01/30/25 01/31/25 23:59 23:59 23:59 23:59 Intake Total 100 / 100 720 / 720 480 / 480 Output Total 2100 / 2100 600 / 600 Balance 100 / 100 -1380 / -1380 -120 / -120 Weight (kg) 75 kg Objective General Appearance: positive No acute distress and Alert Eyes Bilateral: positive Normal inspection and PERRL ENT: positive ENT inspection nml Neck: positive Nml inspection Respiratory: positive Chest non-tender and No respiratory distress Cardiovascular: positive Regular rate & rhythm Abdomen: positive Non-tender Skin: positive Color nml Extremities: positive Non-tender Neurologic/Psychiatric: positive Oriented x3 and Other (Difficulty with opening and closing hand. Poor coordination on the right. Pronator drift on right. Now with absent right sided sensation) Lab Results 01/31/25 04:14 01/31/25 04:14 Other Labs: Lab Results x24hrs 01/31/25 Range/Units 04:14 WBC 7.6 (4.8-10.8) x10^3/uL RBC 3.71 L (4.70-6.10) 10^6/uL Hgb 11.9 L (14.0-18.0) g/dL Hct 36.0 L (42.0-52.0) % MCV 97.0 H (80.0-94.0) fL MCH 32.1 H (27.0-31.0) pg MCHC 33.1 (32.0-36.0) g/dL RDW 12.3 (12.0-15.0) % Plt Count 269 (130-450) 10^3/uL MPV 10.5 (7.4-11.4) fL Neut # (Auto) 5.5 (1.5-6.6) 10^3/uL Lymph # (Auto) 0.9 L (1.5-3.5) 10^3/uL [place] # (Auto) 1.1 H (0.0-1.0) 10^3/uL Eos # (Auto) 0.0 (0.0-0.7) 10^3/uL Baso # (Auto) 0.0 (0.0-0.1) 10^3/uL Absolute Nucleated RBC 0.00 x10^3/uL Nucleated RBC % 0.0 /100WBC Sodium 140 (135-145) mmol/L Potassium 3.9 (3.5-4.5) mmol/L Chloride 108 (101-111) mmol/L Carbon Dioxide 27 (21-32) mmol/L Anion Gap 5.0 L (6-13) BUN 20 (6-20) mg/dL Creatinine 0.8 (0.6-1.3) mg/dL Estimated GFR (MDRD) 93 (>89) Glucose 102 (74-104) mg/dL Calcium 9.1 (8.5-10.3) mg/dL Assessment/Plan Problem List (1) Stroke: Impression: History of atrial fibrillation not on anticoagulant Presented outside of tPA window MRI shows subacute infarct in the lateral aspect of the left thalamus Continue aspirin 81 mg daily, Plavix 75 mg daily Continue to allow permissive hypertension Neurochecks Check echo PT eval 11/22: Patient reported worsening in his symptoms. He does have worsening weakness and coordination in the right. Ascending for repeat CT head, no hemorrhagic conversion 01/31: Has worsening sensation. Sensation now absent on the right. Will send for another CT head. (2) Persistent atrial fibrillation: Impression: History of atrial fibrillation not on anticoagulant Metoprolol for rate control at home Could probably restart metoprolol tonight Telemetry reveals sinus rhythm 01/31: Patient converted to atrial fibrillation with RVR, rate was controlled with IV metoprolol. I have restarted his home dose p.o. metoprolol. Continue telemetry (3) Elevated WBC count: Impression: Stress response, resolved (4) Prostate cancer metastatic to bone: Impression: Continue home dose ABIRATERONE, As well as home dose prednisone
[2025-02-01 04:53] LABS: HCT - HEMATOCRIT 35.0 % (42.0-52.0); HGB - HEMOGLOBIN 11.0 g/dL (14.0-18.0); MEAN PLATELET VOLUME 10.5 fL (7.4-11.4); NRBC ABSOLUTE COUNT (AUTO) 0.00 x10^3/uL; NUCLEATED RED BLOOD CELLS AUTO 0.0 /100WBC; PLT - PLATELET COUNT 260 10^3/uL (130-450); RED CELL DISTRIBUTION WIDTH 12.6 % (12.0-15.0)
[2025-02-01 05:03] LABS: BUN - BLOOD UREA NITROGEN 27.0 mg/dL (6-20); CARBON DIOXIDE - CO2 27.0 mmol/L (21-32); CREATININE 0.9 mg/dL (0.6-1.3); GFR - MDRD 82.0 (>89)
--- NOTE | 2025-02-01 11:40 | PROVIDER PROGRESS NOTE ---
Subjective Prog Note Date Prog Note Date: 02/01/25 Subjective Pt reports feeling: No change Current Medications Current Medications Current Medications: Current Medications Generic Name Dose Route Start Last Admin Trade Name Freq PRN Reason Stop Dose Admin Acetaminophen 650 mg 01/29/25 20:34 Acetaminophen 325 Mg Tablet PO Q4HR PRN Pain 1 to 4, or Fever Alprazolam 0.5 mg 01/30/25 20:11 01/31/25 15:06 Alprazolam 0.25 Mg Tablet PO 0.5 mg BID PRN Administration Anxiety Aspirin 81 mg 01/30/25 09:00 02/01/25 09:04 Aspirin Ec 81 Mg Tablet PO 81 mg DAILY WERNER Administration Clopidogrel Bisulfate 75 mg 01/30/25 12:00 02/01/25 09:04 Clopidogrel 75 Mg Tablet PO 75 mg DAILY WERNER Administration Enoxaparin Sodium 40 mg 01/30/25 09:00 02/01/25 09:03 Enoxaparin 40 Mg/0.4 Ml Syringe SUBQ 40 mg DAILY WERNER Administration Lisinopril 20 mg 01/31/25 11:00 02/01/25 09:04 Lisinopril 20 Mg Tablet PO 20 mg BID WERNER Administration Lorazepam 0.5 mg 01/30/25 19:32 01/30/25 20:11 Lorazepam 2 Mg/Ml Vial IVP 0.5 mg Q2H PRN Administration Anxiety Metoprolol Succinate 100 mg 01/31/25 11:00 01/31/25 23:26 Metoprolol Succinate 50 Mg Tablet PO 100 mg Q12H WERNER Administration Olanzapine 2.5 mg 01/29/25 21:00 01/31/25 20:39 Olanzapine Odt 5 Mg Tablet TL 2.5 mg QPM WERNER Administration Ondansetron HCl 4 mg 01/29/25 20:34 Ondansetron Odt 4 Mg Tablet TL Q6HR PRN Nausea / Vomiting Ondansetron HCl 4 mg 01/29/25 20:34 Ondansetron 4 Mg/2 Ml Vial IVP Q6HR PRN Nausea / Vomiting Abiraterone 250 Mg 4 each 01/30/25 14:00 02/01/25 09:04 Tab PO 4 each DAILY@1000 WERNER Administration Polyethylene Glycol 17 gm 02/01/25 11:00 Polyethylene Glycol 3350 17 Gm Packet PO DAILY WERNER Prednisone 10 mg 01/30/25 14:00 02/01/25 09:04 Prednisone 5 Mg Tablet PO 10 mg 1000 WERNER Administration Sodium Chloride 10 ml 01/29/25 20:34 Sodium Chloride Flush 0.9% 10 Ml Syringe IVP PRN PRN NEEDED PER PROVIDER ORDERS Sodium Chloride 10 ml 01/30/25 01:00 02/01/25 09:04 Sodium Chloride Flush 0.9% 10 Ml Syringe IVP 10 ml 0100,0900,1700 WERNER Administration Objective Vital Signs/Intake & Output Reviewed Vital Signs: Yes Vital Signs: Vital Signs x48h Temp Pulse Resp BP Pulse Ox 02/01/25 07:27 97.9 F 63 18 189/90 H 96 02/01/25 04:13 97.5 F L 74 16 155/69 H 98 Intake & Output: Intake & Output 01/29/25 01/30/25 01/31/25 02/01/25 23:59 23:59 23:59 23:59 Intake Total 100 / 100 720 / 720 720 / 720 240 / 240 Output Total 2100 / 2100 800 / 800 500 / 500 Balance 100 / 100 -1380 / -1380 -80 / -80 -260 / -260 Weight (kg) 75 kg Objective General Appearance: positive No acute distress and Alert Eyes Bilateral: positive Normal inspection and PERRL ENT: positive ENT inspection nml Neck: positive Nml inspection Respiratory: positive Chest non-tender and No respiratory distress Cardiovascular: positive Regular rate & rhythm Abdomen: positive Non-tender Skin: positive Color nml Extremities: positive Non-tender Neurologic/Psychiatric: positive Oriented x3 and Other (Difficulty with opening and closing hand. Poor coordination on the right. Pronator drift on right. Now with absent right sided sensation) Lab Results 02/01/25 04:13 02/01/25 04:13 Other Labs: Lab Results x24hrs 02/01/25 Range/Units 04:13 WBC 7.4 (4.8-10.8) x10^3/uL RBC 3.53 L (4.70-6.10) 10^6/uL Hgb 11.0 L (14.0-18.0) g/dL Hct 35.0 L (42.0-52.0) % MCV 99.2 H (80.0-94.0) fL MCH 31.2 H (27.0-31.0) pg MCHC 31.4 L (32.0-36.0) g/dL RDW 12.6 (12.0-15.0) % Plt Count 260 (130-450) 10^3/uL MPV 10.5 (7.4-11.4) fL Neut # (Auto) 5.0 (1.5-6.6) 10^3/uL Lymph # (Auto) 1.0 L (1.5-3.5) 10^3/uL [place] # (Auto) 1.1 H (0.0-1.0) 10^3/uL Eos # (Auto) 0.1 (0.0-0.7) 10^3/uL Baso # (Auto) 0.0 (0.0-0.1) 10^3/uL Absolute Nucleated RBC 0.00 x10^3/uL Nucleated RBC % 0.0 /100WBC Sodium 140 (135-145) mmol/L Potassium 3.7 (3.5-4.5) mmol/L Chloride 109 (101-111) mmol/L Carbon Dioxide 27 (21-32) mmol/L Anion Gap 4.0 L (6-13) BUN 27 H (6-20) mg/dL Creatinine 0.9 (0.6-1.3) mg/dL Estimated GFR (MDRD) 82 L (>89) Glucose 93 (74-104) mg/dL Calcium 8.5 (8.5-10.3) mg/dL Assessment/Plan Problem List (1) Stroke: Impression: History of atrial fibrillation not on anticoagulant Presented outside of tPA window MRI shows subacute infarct in the lateral aspect of the left thalamus Continue aspirin 81 mg daily, Plavix 75 mg daily Continue to allow permissive hypertension Neurochecks Check echo PT eval 01/30: Patient reported worsening in his symptoms. He does have worsening weakness and coordination in the right. Ascending for repeat CT head, no hemorrhagic conversion 01/31: Has worsening sensation. Sensation now absent on the right. 02/01: Sensation is improving on the right. Patient is now medically cleared for discharge. Needs IPR placement (2) Persistent atrial fibrillation: Impression: History of atrial fibrillation not on anticoagulant Metoprolol for rate control at home Could probably restart metoprolol tonight Telemetry reveals sinus rhythm 01/31: Patient converted to atrial fibrillation with RVR, rate was controlled with IV metoprolol. I have restarted his home dose p.o. metoprolol. Continue telemetry (3) Elevated WBC count: Impression: Stress response, resolved (4) Prostate cancer metastatic to bone: Impression: Continue home dose ABIRATERONE, As well as home dose prednisone
--- NOTE | 2025-02-01 13:12 | Speech Therapy Plan of Care ---
DIAGNOSIS Date of Service Date of Service: 02/01/25 Diagnosis: LEG WEAKNESS/ ARM TREMOR MEDICAL/SURGICAL PAST HISTORY Past History Medical History (Updated 01/29/25 @ 20:35 by Avel El DNP) Weight loss, unintentional Anxiety as acute reaction to gross stress Duodenal ulcer New discovery in recent CT scans at [facility] Counseling regarding advanced directives and goals of care Advance directive discussed with patient (07/11/23) Encounter for medication review Hematuria Vitamin D deficiency Vitamin B12 deficiency Recurrent falls Chronic idiopathic constipation (07/11/23) BPH (benign prostatic hyperplasia) History of non-ST elevation myocardial infarction (NSTEMI) Persistent atrial fibrillation with RVR Ineffective coping Opiate overdose Colitis (05/01/23) Polio Surgical History H/O prostatectomy SPEECH ASSESSMENT Assessment: History: Evaluation completed for this 79 y/o M who arrived to the ED on 01/29/25 due to worsening R-sided weakness. Imaging revealed a subacute infarct in the lateral aspect of the L thalamus. PMH includes prostate CA, CAD, and a-fib; see medical record for complete history. Cleared for COSMETICS SUPERVISOR evaluation by hospitalist. Subjective / Mental Status: Pt alert, oriented, and seen at bedside with spouse present. Pt in good spirits and denies changes in swallowing, speech/language, or cognition. Primary concern is R-sided extremity weakness. Pt is R-hand dominant and reports difficulty with self-feeding and writing due to impaired fine motor control. Speech / Voice: No dysarthria noted. Voice WFL. Mild word-finding difficulty observed in conversation; pt reports this is baseline. OralMotor Exam: Oral mechanism WFL. Swallowing / PO Trials: Trials of thin liquids via straw completed without overt s/s of aspiration or penetration. Silent aspiration cannot be ruled out at bedside but is not suspected based on presentation. Pt exhibits functional swallow and maintains appropriate rate, bolus control, and timing. Language / Cognition: Receptive and expressive language intact. Cognition appears WFL. MoCA completed at bedside: , indicating no impairment. Communication abilities sufficient for medical decision-making and complex discussion. Note: Writing difficulties appear motor-based and secondary to R-hand weakness, not language impairment. Assessment: Pt demonstrates preserved expressive/receptive language, intact cognition, and functional oropharyngeal swallow. No evidence of aphasia, dysarthria, apraxia, or cognitive-communication disorder. Swallow function adequate for current diet; no indication for instrumental swallow assessment at this time. Education / Recommendations: Reviewed safe swallow strategies (small bites/sips, pacing, single swallows, upright positioning). Reviewed signs/symptoms of stroke and parameters for returning to ED. No acute COSMETICS SUPERVISOR needs at this time. Support PT recommendation for discharge to inpatient rehab due to functional decline associated with R-sided weakness and decreased independence with ADLs. Pt/spouse verbalized understanding and agreement.
[2025-02-01] MEDS: ACETAMINOPHEN 325 MG TABLET PO PRN (16:57)
[2025-02-02 05:31] LABS: HCT - HEMATOCRIT 36.3 % (42.0-52.0); HGB - HEMOGLOBIN 11.6 g/dL (14.0-18.0); MEAN PLATELET VOLUME 10.3 fL (7.4-11.4); NRBC ABSOLUTE COUNT (AUTO) 0.00 x10^3/uL; NUCLEATED RED BLOOD CELLS AUTO 0.0 /100WBC; PLT - PLATELET COUNT 275 10^3/uL (130-450); RED CELL DISTRIBUTION WIDTH 12.3 % (12.0-15.0)
[2025-02-02 05:47] LABS: BUN - BLOOD UREA NITROGEN 23.0 mg/dL (6-20); CARBON DIOXIDE - CO2 26.0 mmol/L (21-32); CREATININE 0.8 mg/dL (0.6-1.3); GFR - MDRD 93.0 (>89)
[2025-02-02] MEDS: METOPROLOL 5 MG/5 ML VIAL IVP ONE (05:52)
[2025-02-02] MEDS: hydrALAZINE INJ 20 MG/ML VIAL IVP ONE (06:02)
[2025-02-02] MEDS: SENNA 8.6 MG TABLET PO SCH (09:38)
--- NOTE | 2025-02-02 11:44 | Discharge Summary ---
Discharge Summary Admit Date: 01/29/25 Discharge Date: 02/02/25 Discharging Provider: Avel El Primary Care Provider: Inés Ruggiero Code Status: Attempt Resuscitation DIAGNOSES Discharge Diagnoses with Status of Each Condition: Strokedischarging on DAPT and statin Elevated WBC countresolved Prostate cancer metastatic to bonechronic A-fibchronic, rate controlled, no anticoagulant due to fall risk HPI History of Present Illness: 79-year-old male with history of prostate cancer, Chronic pain, resistant hypertension, CAD, chronic steroid use, atrial fibrillation on metoprolol but not on anticoagulant. Patient had right-sided weakness starting at 9 AM today. Denies fever, chills, chest pain, dyspnea, bowel/bladder abnormality. Denies heart palpitation. Feels a heaviness in his right arm and right leg In the ER, initial NIH score was 4. Patient underwent CT head, CTA head and neck which were unremarkable. MRI brain was performed which showed subacute infarct in the lateral aspect of the left thalamus.. Patient was outside the window for thrombolytics, so these were not given. Hospitalist was contacted for admission for acute stroke HOSPITAL COURSE Hospital Course: Patient was admitted in the hospital and evaluated by physical therapy, who recommended he was an excellent IPR candidate. He has history of atrial fibrillation not on anticoagulant due to fall risk. He is again rate controlled on his home dose of metoprolol. His leukocytosis resolved, was likely stress response. He had some worsening in his symptoms, but follow-up CT showed no hemorrhagic conversion. He is being discharged to inpatient rehab, and will need follow-up with PCP and with cardiology for further management ALLERGIES Allergies Allergy/AdvReac Type Severity Reaction Status Date / Time Iodinated Contrast Media Allergy Severe Rash Verified 01/29/25 17:12 (Iodinated Contrast Media - Oral and) iodine Allergy Severe Rash Verified 01/29/25 17:12 sodium phosphate (From Fleet AdvReac Nausea Verified 01/29/25 17:12 Enema) MEDICATIONS Ambulatory Orders Medication Instructions Recorded Confirmed abiraterone 250 mg tablet 1,000 mg (4 x 250 mg) PO QAM 12/11/23 01/29/25 Prostate cancer #120 tabs denosumab 60 mg/mL subcutaneous 60 mg subcut [id number] Bone cancer 12/11/23 01/29/25 syringe (Prolia) and mass #1 mL leuprolide acetate (3 month) 22.5 22.5 mg IM [id number] #1 ea 12/11/23 01/29/25 mg (3 month) intramuscular syringe kit (Lupron Depot) naloxone 4 mg/actuation nasal 4 mg intranasal Q3M PRN opioid 12/11/23 01/29/25 spray (Narcan) overdose #2 ea ondansetron 8 mg disintegrating 8 mg PO Q6-12H PRN jessa sea and 12/11/23 01/29/25 tablet vomiting #90 tabs potassium chloride 10 mEq 20 meq PO QDAY 12/26/23 11/04/04 capsule,extended release famotidine 20 mg tablet 20 mg PO QDAY #90 tabs 02/2001/29/25 prednisone 10 mg tablet 10 mg PO QDAY Abdominal pain #90 04/17/24 01/29/25 tabs sennosides 8.6 mg capsule (senna) 8.6 - 25.8 mg (1 - 3 x 8.6 mg) PO 06/08/24 01/29/25 TID PRN constipation #100 caps lidocaine-prilocaine 2.5 %-2.5 % 1 applic topical ONCE PRN 06/15/24 01/29/25 topical cream premedication #30 grams amlodipine 5 mg tablet 2.5 mg (1/2 x 5 mg) PO BID 0 07/06/24 01/29/25 hypertensive emergency #100 tabs lisinopril 20 mg tablet 20 mg PO BID #100 tabs 07/0601/29/25 metoprolol succinate 100 mg 100 mg PO Q12H #180 tabs 0 08/07/24 01/29/25 tablet,extended release 24 hr olanzapine 2.5 mg tablet 2.5 mg PO QPM #100 tabs 05/3 01/29/25 calcium 600 mg (as carbonate)-vit 1 tab PO QDAY 01/29/25 D3 20 mcg (800 unit) chewable tablet (Caltrate plus D) oxycodone 5 mg tablet 5 - 10 mg (1 - 2 x 5 mg) PO Q4-6H 09/25/24 01/29/25 PRN pain, moderate to severe #60 tabs alprazolam 0.25 mg tablet See Rx Instructions PO QDAY PRN 01/08/25 01/29/25 anxiety #60 tabs furosemide 20 mg tablet 20 - 40 mg (1 - 2 x 20 mg) P O QDAY 01/08/25 01/29/25 #100 tabs aspirin 81 mg tablet,delayed 81 mg PO DAILY 30 days #3 0 tabs 02/02/25 release atorvastatin 40 mg tablet (Lipitor) 40 mg PO DAILY #30 tabs 02/02/25 clopidogrel 75 mg tablet 75 mg PO DAILY 19 days #19 t abs 02/02/25 PHYSICAL EXAM AT DISCHARGE Vital Signs: Vital Signs x48h Temp Pulse Resp BP BP BP Pulse Ox 02/02/25 07:32 97.7 F 61 16 183/70 H 96 02/02/25 06:49 67 177/74 H 02/02/25 06:37 65 158/92 H 02/02/25 06:22 54 L 150/53 H 02/02/25 06:17 59 L 154/63 H 02/02/25 06:12 54 L 175/64 H 02/02/25 06:07 50 L 192/70 H 02/02/25 06:04 50 L 173/75 H 02/02/25 06:02 173/75 H 02/02/25 05:00 97.7 F 52 L 16 202/93 H 205/84 H 95 Physical Exam Other/Comments: General Appearance: positive No acute distress and Alert Eyes Bilateral: positive Normal inspection and PERRL ENT: positive ENT inspection nml Neck: positive Nml inspection Respiratory: positive Chest non-tender and No respiratory distress Cardiovascular: positive Regular rate & rhythm Abdomen: positive Non-tender Skin: positive Color nml Extremities: positive Non-tender Neurologic/Psychiatric: positive Oriented x3 and Other (Difficulty with opening and closing hand. Poor coordination on the right. Pronator drift on right. Sensation much improved on the right side) LABS 02/02/25 04:32 02/02/25 04:32 FOLLOW UP Follow Up: With PCP, cardiology, possibly neurology TIME SPENT Time Spent in Discharge (Minutes): 35 Discharge Plan Discharge Patient Disposition: 63 IRF DC/Xfer Prescriptions: New aspirin 81 mg Tablet,Delayed Release (Dr/Ec) 81 mg PO DAILY 30 Days Qty: 30 0RF clopidogrel 75 mg Tablet 75 mg PO DAILY 19 Days Qty: 19 0RF atorvastatin [Lipitor] 40 mg tablet 40 mg PO DAILY Qty: 30 2RF Continued prednisone 10 mg tablet 10 mg PO QDAY Qty: 90 3RF lidocaine-prilocaine 2.5-2.5 % cream 1 applic topical ONCE PRN (Reason: premedication) Qty: 30 5RF alprazolam 0.25 mg tablet See Rx Instructions PO QDAY PRN (Reason: anxiety) Qty: 60 0RF Rx Instructions: 0.25 - 0.5mg orally every day PRN; furosemide 20 mg tablet 20 - 40 mg PO QDAY Qty: 100 3RF Rx Instructions: May increase to 2 tabs (40 mg) on days extra swollen. Take with potassium chloride abiraterone 250 mg tablet 1,000 mg PO QAM Qty: 120 2RF Rx Instructions: must be taken on empty stomach, at least 1 hr before or 2 hrs after a meal/food Lupron Depot (3 month) 22.5 mg syringe kit 22.5 mg IM [id number] Qty: 1 0RF naloxone [Narcan] 4 mg/actuation spray,non-aerosol 4 mg intranasal Q3M PRN (Reason: opioid overdose) Qty: 2 0RF Rx Instructions: spray 1 dose into ONE nostril; alternate nostrils w each dose until help arrives ondansetron 8 mg tablet,disintegrating 8 mg PO Q6-12H PRN (Reason: nausea and vomiting) Qty: 90 2RF Prolia 60 mg/mL syringe 60 mg subcut [id number] Qty: 1 0RF potassium chloride 10 mEq capsule, extended release 20 meq PO QDAY Rx Instructions: Use when taking furosemide. famotidine 20 mg tablet 20 mg PO QDAY Qty: 90 0RF senna 8.6 mg capsule 8.6 - 25.8 mg PO TID PRN (Reason: constipation) Qty: 100 3RF amlodipine 5 mg tablet 2.5 mg PO BID Qty: 100 3RF lisinopril 20 mg tablet 20 mg PO BID Qty: 100 3RF metoprolol succinate 100 mg tablet extended release 24 hr 100 mg PO Q12H Qty: 180 6RF olanzapine 2.5 mg tablet 2.5 mg PO QPM Qty: 100 3RF Caltrate 600 plus D 600 mg-20 mcg (800 unit) tablet,chewable 1 tab PO QDAY oxycodone 5 mg tablet 5 - 10 mg PO Q4-6H PRN (Reason: pain, moderate to severe) Qty: 60 0RF Activity Restrictions: No Restrictions Diet: Regular Health Concerns: Diagnosis and Hospital Course: Patient with history of atrial fibrillation and prostate cancer, admitted for acute ischemic stroke. Anticoagulation is contraindicated due to elevated fall risk; patient is being discharged on dual antiplatelet therapy (DAPT). Medications: * Continue dual antiplatelet therapy as prescribed (e.g., aspirin and clopidogrel), per current secondary prevention guidelines for patients unable to take anticoagulation. * Monitor for signs of bleeding (e.g., bruising, hematuria, melena, epistaxis) and report any concerns promptly. Stroke and AF Management: * Anticoagulation is the preferred strategy for secondary stroke prevention in AF, but DAPT is recommended when anticoagulation is contraindicated. * DAPT should be continued for the duration specified by the treating neurologist, typically 2190 days, then transition to single antiplatelet therapy for long-term prevention. * Avoid triple antiplatelet therapy due to increased bleeding risk. Prostate Cancer and Cardiovascular Risk: * Prostate cancer survivors are at increased risk for cardiovascular events, especially with androgen deprivation therapy. * Aggressive management of modifiable risk factors is recommended: * Blood pressure:Monitor and control per guidelines. * Cholesterol:Assess and treat as indicated. * Diabetes:Screen and manage. * Lifestyle:Encourage smoking cessation, healthy diet, and regular exercise. Rehabilitation and Safety: * Participate in inpatient rehabilitation as planned. * Fall precautions: Use assistive devices as needed, avoid hazardous activities, and ensure safe environment to minimize fall risk. Follow-Up: * Schedule follow-up with PCP, cardiology, and oncology as appropriate. * Reassess anticoagulation candidacy periodically, as risk-benefit profile may change. * Monitor for recurrent stroke symptoms (sudden weakness, speech changes, vision loss) and seek immediate medical attention if they occur. Additional Instructions: * Maintain adherence to prescribed medications and rehabilitation program. * Report any new symptoms, medication side effects, or concerns to the care team. Summary: This regimen is based on current evidence and guidelines for secondary stroke prevention in patients with AF who cannot receive anticoagulation, and incorporates recommendations for cardiovascular risk management in prostate cancer survivors. Print Language: Algerian Patient Instructions: Stroke: Resources and Support Stand Alone Forms: PCP List Follow-up Care: Inés Ruggiero NP [Primary Care Provider, Family Practice]
[2025-02-02] MEDS: ONDANSETRON ODT 4 MG TABLET TL PRN (13:58)
[2025-02-02 15:08] VITALS: BP 175/84; TEMP 97.9; O2SAT 94
== END 2025-02-02 15:08 | DRG 65 ==
LOC: ED 15:47 → MS3 19:04
PROVIDERS: ADMIT Nurse Practitioner Acute Care; ATTEND Nurse Practitioner Acute Care
DX: I1A.0 Resistant hypertension; I48.19 Other persistent atrial fibrillation; D64.9 Anemia, unspecified; Z79.52 Long term (current) use of systemic steroids; C61 Malignant neoplasm of prostate; D72.829 Elevated white blood cell count, unspecified; R26.9 Unspecified abnormalities of gait and mobility; C79.51 Secondary malignant neoplasm of bone; I25.10 Atherosclerotic heart disease of native coronary artery without angina pectoris; I25.2 Old myocardial infarction; G89.29 Other chronic pain; R29.704 NIHSS score 4; I48.20 Chronic atrial fibrillation, unspecified; G81.91 Hemiplegia, unspecified affecting right dominant side; I63.9 Cerebral infarction, unspecified; R17 Unspecified jaundice